=== PATIENT | female | born 1985 ===

== ENCOUNTER 2020-11-02 09:02 | Outpatient (REF) | payer OTHER, SELFPAY | END 2020-11-02 09:03 | disposition home or self-care (01) | LOC: HO.LAB 09:02 | PROVIDERS: PCP Internal Medicine; Visit Provider Internal Medicine | DX: Z20.828 Contact with and (suspected) exposure to other viral communicable diseases (principal) | CPT/HCPCS: C9803; U0003 ==

== ENCOUNTER 2021-01-17 08:41 | Emergency (ER) | payer OTHER, SELFPAY ==
--- NOTE | ~2021-01-17 | CT_ITS ---
EXAMINATION: CT HEAD WITHOUT CONTRAST CLINICAL INFORMATION: Dizziness, headache for 4 days COMPARISON: Noncontrast CT head 12/18/2016 TECHNIQUE: Contiguous axial imaging was performed from the skull base to vertex without intravenous administration of contrast. Additional 2-D coronal and sagittal reformatted images are generated on the CT workstation and uploaded to PACS. This CT examination was performed using dose optimization techniques as appropriate, variously including the following: *Automated exposure control *Adjustment of mA and/or kV according to patient size (this includes techniques or standardized protocols for targeted exams where dose is matched to indication/reason for exam; i.e. extremities or head) *Use of iterative reconstruction technique DLP: 719 mGy-cm FINDINGS: There is no intracranial hemorrhage, hematoma, or extra-axial fluid collection. The ventricles are normal in size. There is no hydrocephalus, edema, or mass effect. The marcum-white matter differentiation appears symmetric. There is no visible acute territorial infarct or mass lesion. The calvarium appears intact. There is no pneumocephalus or orbital emphysema. The visualized sinuses and middle ears and mastoid air cells show no significant mucosal thickening. There are no air-fluid levels. CT/CT head/brain wo con IMPRESSION: No acute intracranial abnormality.
--- NOTE | ~2021-01-17 | XR_ITS ---
EXAMINATION: XR CHEST CLINICAL INFORMATION: Dizziness, headache for 4 days COMPARISON: None TECHNIQUE: Portable upright AP view of the chest was obtained. FINDINGS: There are low lung volumes. The lungs are clear. The heart is normal in size. The vascularity is normal. There is no airspace consolidation or effusion. The hilar and mediastinal contours are normal. There is dextrocurvature thoracolumbar spine. XR/XR chest 1V IMPRESSION: Unremarkable examination.
[2021-01-17 08:47] VITALS: BP 138/83; PULSE 100; RESP 12; TEMP 36.9; O2SAT 97; BMI 27.4
--- NOTE | 2021-01-17 09:09 | ECG_ITS ---
Test Reason : DIZZINESS Blood Pressure : / mmHG Vent. Rate : 080 BPM Atrial Rate : 080 BPM P-R Int : 156 ms QRS Dur : 074 ms QT Int : 384 ms P-R-T Axes : 053 003 016 degrees QTc Int : 442 ms Normal sinus rhythm Cannot rule out Anterior infarct , age undetermined - could be from body habitus/lead placement Abnormal ECG When compared with ECG of 17-AUG-2013 10:15, No significant changes seen Referred By: Fadia Manning Electronically Signed By:KAMINI BALLESTEROS
[2021-01-17] MEDS: 0.9 % Sodium Chloride 1,000 ML 999 ML IVCONT (09:22)
[2021-01-17 09:27] LABS: MANUAL DIFF FLAG NO
[2021-01-17 09:30] LABS: Basophils Percent Auto 0.7 % (0-2); Eosinophils Absolute Auto 0.2 X10*3/uL (0.0-0.4); Eosinophils Percent Auto 3.6 % (0-4); Hematocrit 33.4 % (37-47); Hemoglobin 9.6 g/dl (12.0-16.0); Imm Gran Abs Auto 0.02 X10*3/uL (0.00-0.03); Imm Gran Pct Auto 0.4 % (0.0-0.4); Lymphocytes Percent Auto 35.9 % (20-40); Mean Corpuscular HGB Conc 28.7 g/dl (31.0-35.0); Mean Corpuscular Hemoglobin 20.1 pg (27.0-33.0); Mean Platelet Volume 10.8 fL (9.4-12.3); Monocytes Absolute Auto 0.4 X10*3/uL (0.1-1.2); Monocytes Percent Auto 7.6 % (2-11); Neutrophils Absolute Auto 2.9 X10*3/uL (2.0-8.3); Neutrophils Percent Auto 51.8 % (45-73); Platelet Count 315 X10*3/uL (160-400); Red Blood Count 4.77 X10*6/uL (4.20-5.50); Red Cell Distribution Width 16.1 % (11.0-16.0); White Blood Count 5.5 X10*3/uL (4.8-10.8)
[2021-01-17 09:38] LABS: Prothrombin Time 11.8 SEC (10.8-13.0)
--- NOTE | 2021-01-17 09:44 | ED.GENADULT ---
HPI - General Adult General Chief complaint: General Medical Stated complaint: dizziness Time Seen by Provider: 01/17/21 08:48 Source: patient Mode of arrival: ambulatory Limitations: no limitations History of Present Illness MD complaint: Dizziness Related Data Allergies Allergy/AdvReac Type Severity Reaction Status Date / Time No Known Allergies Allergy Verified 12/06/20 14:22 [facility] Past Medical History Surgical History (Updated 12/06/20 @ 14:23 by GARRY Tovar) History of appendectomy History of cholecystectomy History of extraction of renal calculus Family History Family History (Updated 12/06/20 @ 14:24 by GARRY Tovar) Father Hypertension Mother No problems noted. Sister Asthma Thalassemia Maternal Grandmother Heart disease Daughter In good health Daughter In good health Social History Social History Advance Directives: No Advance Directives Information Provided: No Physical Exam Vital Signs: Vital Signs: Last Vital Signs Temp 98.4 F 01/17/21 08:47 Pulse 100 01/17/21 08:47 Resp 12 01/17/21 08:47 BP 138/83 01/17/21 08:47 Pulse Ox 97 01/17/21 08:47 Body Mass Index 27.4 Medical Decision Making Lab Data Result diagrams: 01/17/21 09:16 01/17/21 09:16 Labs: Lab Results 01/17/21 01/17/21 Range/Units 09:16 09:16 WBC 5.5 (4.8-10.8) X10*3/uL RBC 4.77 (4.20-5.50) X10*6/uL Hgb 9.6 L (12.0-16.0) g/dl Hct 33.4 L (37-47) % MCV 70.0 L (80-98) fL MCH 20.1 L (27.0-33.0) pg MCHC 28.7 L (31.0-35.0) g/dl RDW 16.1 H (11.0-16.0) % Plt Count 315 (160-400) X10*3/uL MPV 10.8 (9.4-12.3) fL Immature Gran % (Auto) 0.4 (0.0-0.4) % Neut % (Auto) 51.8 (45-73) % Lymph % (Auto) 35.9 (20-40) % [place] % (Auto) 7.6 (2-11) % Eos % (Auto) 3.6 (0-4) % Baso % (Auto) 0.7 (0-2) % Lymph # (Auto) 2.0 (1.2-4.9) X10*3/uL [place] # (Auto) 0.4 (0.1-1.2) X10*3/uL Eos # (Auto) 0.2 (0.0-0.4) X10*3/uL Baso # (Auto) 0.0 (0.0-0.2) X10*3/uL Abs Immat Gran (auto) 0.02 (0.00-0.03) X10*3/uL Absolute Neuts (auto) 2.9 (2.0-8.3) X10*3/uL Absolute Nucleated RBC 0.000 (0.0-0.012) X10*3/uL Nucleated RBC % (auto) 0.0 (0.0-0.2) /100WBC PT 11.8 (10.8-13.0) SEC INR 1.0 (0.9-1.1)
[2021-01-17 10:02] LABS: Alanine Aminotransferase 7 U/L (0-31); Albumin Level 3.9 g/dL (3.5-5.0); Alkaline Phosphatase 50 U/L (39-117); Anion Gap 15 (12-20); Aspartate Amino Transferase 11 U/L (5-31); Bilirubin Direct 0.2 mg/dL (0.0-0.5); Bilirubin Total 0.5 mg/dL (0.0-1.0); Blood Urea Nitrogen 8 mg/dL (9-16); Calcium 8.6 mg/dL (8.4-10.2); Carbon Dioxide 20 mmol/L (22-29); Chloride 110 mmol/L (96-108); Creatinine Clr Calc Pharmacy 89.2; Estimated Glomerular Filt Rate > 60; Glucose Random 121 mg/dL (60-115); Magnesium 1.9 mg/dL (1.6-2.6); Sodium 141 mmol/L (135-145); Total Protein 7.2 g/dL (6.5-8.0)
[2021-01-17 10:06] LABS: Troponin-I High Sensitivity < 3.5 ng/L (<3.5-17.0)
[2021-01-17 10:16] LABS: Influenza A PCR NEGATIVE (Negative); Influenza B PCR NEGATIVE (Negative); Resp Syncy Virus RNA Qual PCR NEGATIVE (Negative); SARS COV2 PCR INHOUSE NEGATIVE (Negative)
--- NOTE | 2021-01-17 10:37 | ED_ITS ---
HPI - Dizziness General Chief Complaint: General Medical Stated Complaint: dizziness Time Seen by Provider: 01/17/21 08:48 Source: patient Mode of arrival: ambulatory Limitations: no limitations History of Present Illness HPI Narrative: 35-year-old female with a past medical history of iron deficiency anemia, asthma, scoliosis and nephrolithiasis presenting to the ED with complaints of gradual onset of dizziness and headache for the past 4 days worse today. Reports that she is concerned due to many coworkers are testing positive for COVID. Patient reports she is currently on her menstrual period. Patient denies any fevers, changes in vision, neck pain/stiffness, nausea/vomiting, chest pain, shortness of breath, palpitations, dyspnea on exertion, orthopnea, lower extremity edema, abdominal pain, back pain, dysuria, hematuria, vaginal discharge, melena or or tarry stools. Patient denies recent travel. Patient denies any other symptoms complaints or concerns at this time. MD elicited complaint: dizziness Pertinent past history: anemia Onset (ago): day(s) (4 days) Timing: gradual onset and constant Severity: moderate Description: off-balance History of similar symptoms: No Exacerbating factors: movement/ambulation Relieving factors: nothing Associated symptoms: denies other symptoms Related Data Previous Rx's Medication Instructions Recorded ferrous sulfate 325 mg PO DAILY #30 tab 01/17/21 medroxyprogesterone [Provera] 10 mg PO DAILY 10 Days #10 tab 01/17/21 nitrofurantoin monohyd/m-cryst 100 mg PO Q12H 7 Days #14 cap 01/17/21 [Macrobid] Allergies Allergy/AdvReac Type Severity Reaction Status Date / Time No Known Allergies Allergy Verified 12/06/20 14:22 Review of Systems Review of Systems: Constitutional : No Fever, No Chills, No Night Sweats, No F atigue, No Malaise ENT/Mouth : No Ear Pain, No Nasal Congestion, No Sinus Pain, No sore throat, No Rhinorrhea Eyes: No Eye Pain, No Swelling, No Redness, No Foreign Body, No Discharge, No Vision Changes Cardiovascular : No Chest Pain, No SOB, No Dyspnea on Exertion, No Orthopnea, No Palpitations Respiratory : No Cough, No Sputum, No Wheezing, No Dyspnea Gastrointestinal : No Nausea, No Vomiting, No Diarrhea, No Constipation, No abdominal Pain, No Hematochezia, No Melena Genitourinary : No Dysuria, No Urinary Frequency, No Urinary Incontinence, No Urgency, No Flank Pain Musculoskeletal : No joint pain, No Myalgias Skin : No lacerations Neuro : + Dizziness, +Headache, No Focal weakness, No Numbness, No Paresthesias, No Loss of Consciousness Yes all other systems are reviewed and are negative [facility] Past Medical History Attestation statement: The following information was validated with the patient. Surgical History History of appendectomy History of cholecystectomy History of extraction of renal calculus Family History Family History Father Hypertension Mother No problems noted. Sister Asthma Thalassemia Maternal Grandmother Heart disease Daughter In good health Daughter In good health Social History Social History Advance Directives: No Advance Directives Information Provided: No Physical Exam Vital Signs: Vital Signs: Last Vital Signs Temp 98.4 F 01/17/21 08:47 Pulse 71 01/17/21 11:21 Resp 16 01/17/21 11:21 BP 122/61 01/17/21 11:21 Pulse Ox 97 01/17/21 11:21 Body Mass Index 27.4 Vital signs have been reviewed as normal and appeared to be correct. Blood pressure normal. Heart rate normal. Respiration rate normal. Temperature normal. Oxygen saturation normal. Appearance: Alert. Oriented X3. No acute distress. Head: Normal external exam. Normocephalic. Atraumatic. Able to rotate head bilaterally. Eyes: PERRLA. EOMI. No nystagmus noted. Conjunctiva and sclera normal. Eyelids normal. Corneal reflex normal. ENT: EAC normal. TM's Normal. Hearing normal. Pharynx normal. Uvula midline. tongue midline. Moist mucous membranes. No trismus noted. No drooling noted. No muffled voice noted. No nystagmus noted. Neck: Normal inspection. Neck supple. FROM. No adenopathy. Trachea midline. Thyroid Normal. No meningeal signs. No neck mass noted. CVS: Normal heart rate and rhythm. Heart sound normal. No murmurs noted. Pulses normal throughout. Respiratory: No respiratory distress. Painless inspiration. Breath sounds normal. No wheezes/rales/rhonchi noted. Chest nontender. No accessory muscle usage noted or decreased air movement noted. Abdomen: Soft and nontender. Bowel sounds normal in all 4 quadrants. No distention noted. No organomegaly noted. No visible injury noted. Back: No CVA tenderness. Full range of motion noted. Skin: Skin warm and dry. Normal skin color. Normal skin turgor. No rashes/lesions/lacerations noted. Extremities: No lower extremity edema. No calf tenderness noted. Extremities exhibit normal range of motion. Extremities nontender. Able to shrug shoulders bilaterally and keep up against resistance. Neuro: Oriented X 3. No motor deficit. No sensory deficit. Reflexes normal. Moving all extremities. No focal motor deficits. Cranial nerves II-XI intact bilaterally. Facial strength normal. Normal cognition. Speech normal. Gait normal. Strength 5/5 throughout. No pronator drift. No tremor noted. No fasciculations noted. No rigidity noted. Muscle tone normal throughout. No asterixis noted. Xqwbfq-av-ojub test normal. Heel to bhakta test normal. Tandem gait normal. Does not sway with eyes open. Romberg test negative. Rapid alternating movement upper extremity normal. Rapid alternating movement lower extremity normal. Hand drop from overhead Misses face. NIHSS score 0. Course Course Course Narrative: 9am - 35-year-old female with a past medical history of iron deficiency anemia, asthma, scoliosis and nephrolithiasis presenting to the ED with complaints of gradual onset of dizziness and headache for the past 4 days worse today. Positive exposure to COVID at work. - on exam patient is alert and oriented x3. Vital signs are stable within normal limits. No focal neuro deficits noted. Has a normal steady gait. - Plan: Labs, CT scan of brain, CXR, EKG, orthostatic vitals, COVID/RSV/flu swab provide a L of IV fluids and re-evaluate. Reevaluation(s) Reevaluation #1: - patient is noted to be anemic with a hemoglobin of 9.6 hematocrit of 33.4 MCV of 70 consistent with iron deficiency anemia. - glucose at 121. - UA revealed trace of leukocytes therefore will treat for UTI. Patient is currently on her menstrual period and reports she is having heavy periods - stool occult is negative. - CT scan of brain within normal limits no acute processes noted. - chest x-ray within normal limits no acute processes noted. - EKG is normal sinus rhythm no acute ischemic changes noted. - patient's vital signs are stable. Normal steady gait. Has a chronic history of iron deficiency anemia due to heavy menstrual periods. She is currently on no iron supplements for her iron deficiency anemia. Therefore will start the patient on ferrous sulfate and attempt Provera to slow down the menstrual periods. Along with instructions to return if any new or worsening symptoms to follow up her primary care provider/OBGYN. Patient understands and agrees the plan. Time: 11:03 [facility] - Dizziness Medical Records Attestation: I reviewed the patient's medical records. Lab Data Attestation: I reviewed the patient's lab results. Result diagrams: 01/17/21 09:16 01/17/21 09:16 Labs: Lab Results 01/17/21 01/17/21 01/17/21 Range/Units 09:10 09:16 09:16 WBC 5.5 (4.8-10.8) X10*3/uL RBC 4.77 (4.20-5.50) X10*6/uL Hgb 9.6 L (12.0-16.0) g/dl Hct 33.4 L (37-47) % MCV 70.0 L (80-98) fL MCH 20.1 L (27.0-33.0) pg MCHC 28.7 L (31.0-35.0) g/dl RDW 16.1 H (11.0-16.0) % Plt Count 315 (160-400) X10*3/uL MPV 10.8 (9.4-12.3) fL Immature Gran % (Auto) 0.4 (0.0-0.4) % Neut % (Auto) 51.8 (45-73) % Lymph % (Auto) 35.9 (20-40) % [place] % (Auto) 7.6 (2-11) % Eos % (Auto) 3.6 (0-4) % Baso % (Auto) 0.7 (0-2) % Lymph # (Auto) 2.0 (1.2-4.9) X10*3/uL [place] # (Auto) 0.4 (0.1-1.2) X10*3/uL Eos # (Auto) 0.2 (0.0-0.4) X10*3/uL Baso # (Auto) 0.0 (0.0-0.2) X10*3/uL Abs Immat Gran (auto) 0.02 (0.00-0.03) X10*3/uL Absolute Neuts (auto) 2.9 (2.0-8.3) X10*3/uL Absolute Nucleated RBC 0.000 (0.0-0.012) X10*3/uL Nucleated RBC % (auto) 0.0 (0.0-0.2) /100WBC PT 11.8 (10.8-13.0) SEC INR 1.0 (0.9-1.1) Sodium (135-145) mmol/L Potassium (3.3-5.1) mmol/L Chloride (96-108) mmol/L Carbon Dioxide (22-29) mmol/L Anion Gap (12-20) BUN (9-16) mg/dL Creatinine (0.5-1.4) mg/dL Estim Creat Clear Calc Estimated GFR Random Glucose (60-115) mg/dL Calcium (8.4-10.2) mg/dL Magnesium (1.6-2.6) mg/dL Total Bilirubin (0.0-1.0) mg/dL Direct Bilirubin (0.0-0.5) mg/dL AST (5-31) U/L ALT (0-31) U/L Alkaline Phosphatase (39-117) U/L Troponin I High Sens (<3.5-17.0) ng/L Total Protein (6.5-8.0) g/dL Albumin (3.5-5.0) g/dL Urine Color Urine Appearance Urine pH (5.0-8.0) Ur Specific [place] (1.005-1.025) Urine Protein (NEG-TRACE) MG/DL Urine Glucose (UA) (NEG) MG/DL Urine Ketones (NEG) MG/DL Urine Blood (NEG) Urine Nitrite (NEG) Ur Leukocyte Esterase (NEG) Urine RBC (0) /HPF Urine WBC (0-4) /HPF Ur Squamous Epith Cells /LPF Urine Bacteria /LPF Urine Test (NEGATIVE) Stool Occult Blood (NEG) Coronavirus (PCR) NEGATIVE (Negative) Influenza Type A (PCR) NEGATIVE (Negative) Influenza Type B (PCR) NEGATIVE (Negative) RSV RNA Qual (PCR) NEGATIVE (Negative) 01/17/21 01/17/21 01/17/21 Range/Units 09:16 09:16 10:28 WBC (4.8-10.8) X10*3/uL RBC (4.20-5.50) X10*6/uL Hgb (12.0-16.0) g/dl Hct (37-47) % MCV (80-98) fL MCH (27.0-33.0) pg MCHC (31.0-35.0) g/dl RDW (11.0-16.0) % Plt Count (160-400) X10*3/uL MPV (9.4-12.3) fL Immature Gran % (Auto) (0.0-0.4) % Neut % (Auto) (45-73) % Lymph % (Auto) (20-40) % [place] % (Auto) (2-11) % Eos % (Auto) (0-4) % Baso % (Auto) (0-2) % Lymph # (Auto) (1.2-4.9) X10*3/uL [place] # (Auto) (0.1-1.2) X10*3/uL Eos # (Auto) (0.0-0.4) X10*3/uL Baso # (Auto) (0.0-0.2) X10*3/uL Abs Immat Gran (auto) (0.00-0.03) X10*3/uL Absolute Neuts (auto) (2.0-8.3) X10*3/uL Absolute Nucleated RBC (0.0-0.012) X10*3/uL Nucleated RBC % (auto) (0.0-0.2) /100WBC PT (10.8-13.0) SEC INR (0.9-1.1) Sodium 141 (135-145) mmol/L Potassium 4.0 (3.3-5.1) mmol/L Chloride 110 H (96-108) mmol/L Carbon Dioxide 20 L (22-29) mmol/L Anion Gap 15 (12-20) BUN 8 L (9-16) mg/dL Creatinine 0.72 (0.5-1.4) mg/dL Estim Creat Clear Calc 89.2 Estimated GFR > 60 Random Glucose 121 H (60-115) mg/dL Calcium 8.6 (8.4-10.2) mg/dL Magnesium 1.9 (1.6-2.6) mg/dL Total Bilirubin 0.5 (0.0-1.0) mg/dL Direct Bilirubin 0.2 (0.0-0.5) mg/dL AST 11 (5-31) U/L ALT 7 (0-31) U/L Alkaline Phosphatase 50 (39-117) U/L Troponin I High Sens < 3.5 (<3.5-17.0) ng/L Total Protein 7.2 (6.5-8.0) g/dL Albumin 3.9 (3.5-5.0) g/dL Urine Color YELLOW Urine Appearance CLOUDY Urine pH 5.5 (5.0-8.0) Ur Specific [place] 1.025 (1.005-1.025) Urine Protein NEG (NEG-TRACE) MG/DL Urine Glucose (UA) NEG (NEG) MG/DL Urine Ketones NEG (NEG) MG/DL Urine Blood 3+ H (NEG) Urine Nitrite NEG (NEG) Ur Leukocyte Esterase TRACE H (NEG) Urine RBC TNTC H (0) /HPF Urine WBC 1-4 (0-4) /HPF Ur Squamous Epith Cells 1+ /LPF Urine Bacteria NONE /LPF Urine Test (NEGATIVE) Stool Occult Blood (NEG) Coronavirus (PCR) (Negative) Influenza Type A (PCR) (Negative) Influenza Type B (PCR) (Negative) RSV RNA Qual (PCR) (Negative) 01/17/21 01/17/21 Range/Units 10:28 10:28 WBC (4.8-10.8) X10*3/uL RBC (4.20-5.50) X10*6/uL Hgb (12.0-16.0) g/dl Hct (37-47) % MCV (80-98) fL MCH (27.0-33.0) pg MCHC (31.0-35.0) g/dl RDW (11.0-16.0) % Plt Count (160-400) X10*3/uL MPV (9.4-12.3) fL Immature Gran % (Auto) (0.0-0.4) % Neut % (Auto) (45-73) % Lymph % (Auto) (20-40) % Baxter % (Auto) (2-11) % Eos % (Auto) (0-4) % Baso % (Auto) (0-2) % Lymph # (Auto) (1.2-4.9) X10*3/uL Baxter # (Auto) (0.1-1.2) X10*3/uL Eos # (Auto) (0.0-0.4) X10*3/uL Baso # (Auto) (0.0-0.2) X10*3/uL Abs Immat Gran (auto) (0.00-0.03) X10*3/uL Absolute Neuts (auto) (2.0-8.3) X10*3/uL Absolute Nucleated RBC (0.0-0.012) X10*3/uL Nucleated RBC % (auto) (0.0-0.2) /100WBC PT (10.8-13.0) SEC INR (0.9-1.1) Sodium (135-145) mmol/L Potassium (3.3-5.1) mmol/L Chloride (96-108) mmol/L Carbon Dioxide (22-29) mmol/L Anion Gap (12-20) BUN (9-16) mg/dL Creatinine (0.5-1.4) mg/dL Estim Creat Clear Calc Estimated GFR Random Glucose (60-115) mg/dL Calcium (8.4-10.2) mg/dL Magnesium (1.6-2.6) mg/dL Total Bilirubin (0.0-1.0) mg/dL Direct Bilirubin (0.0-0.5) mg/dL AST (5-31) U/L ALT (0-31) U/L Alkaline Phosphatase (39-117) U/L Troponin I High Sens (<3.5-17.0) ng/L Total Protein (6.5-8.0) g/dL Albumin (3.5-5.0) g/dL Urine Color Urine Appearance Urine pH (5.0-8.0) Ur Specific [place] (1.005-1.025) Urine Protein (NEG-TRACE) MG/DL Urine Glucose (UA) (NEG) MG/DL Urine Ketones (NEG) MG/DL Urine Blood (NEG) Urine Nitrite (NEG) Ur Leukocyte Esterase (NEG) Urine RBC (0) /HPF Urine WBC (0-4) /HPF Ur Squamous Epith Cells /LPF Urine Bacteria /LPF Urine Test NEGATIVE (NEGATIVE) Stool Occult Blood NEG (NEG) Coronavirus (PCR) (Negative) Influenza Type A (PCR) (Negative) Influenza Type B (PCR) (Negative) RSV RNA Qual (PCR) (Negative) Imaging Data Chest x-ray: Attestation: I personally reviewed and interpreted this imaging study as follows: Radiologist's impression: FINDINGS: There are low lung volumes. The lungs are clear. The heart is normal in size. The vascularity is normal. There is no airspace consolidation or effusion. The hilar and mediastinal contours are normal. There is dextrocurvature thoracolumbar spine. XR/XR chest 1V IMPRESSION: Unremarkable examination. CT scan of brain without contrast: Attestation: I personally reviewed and interpreted this imaging study as follows: Radiologist's impression: FINDINGS: There is no intracranial hemorrhage, hematoma, or extra-axial fluid collection. The ventricles are normal in size. There is no hydrocephalus, edema, or mass effect. The marcum-white matter differentiation appears symmetric. There is no visible acute territorial infarct or mass lesion. The calvarium appears intact. There is no pneumocephalus or orbital emphysema. The visualized sinuses and middle ears and mastoid air cells show no significant mucosal thickening. There are no air-fluid levels. CT/CT head/brain wo con IMPRESSION: No acute intracranial abnormality. ECG Data Attestation: I personally reviewed and interpreted this ECG as follows: ECG interpretation date: 01/17/21 ECG interpretation time: 10:03 Interpretation: Normal sinus rhythm with her intra-ocular rate of 80 with a normal AR interval normal QRS duration normal QTC last QTC interval. No acute ischemic changes noted. Similar when compared to prior EKG on 08/17/2013. Critical Care Time Critical Care Time Critical Care Time: Yes Total Critical Care Time: 60 Attestation: I personally attest to this time spent taking care of the patient Discharge Plan Discharge Clinical Impression: Iron deficiency anemia, UTI (urinary tract infection), Menorrhagia Patient Disposition: Home, Self-Care Instructions: Urinary Tract Infection in Women (ED), Iron Deficiency Anemia (ED), Menorrhagia (ED) Additional Instructions: You had a negative COVID/RSV/flu swab. If you develop any fever, sore throat, nasal congestion, cough or any other related complaints you need to be retested for COVID. Otherwise I am starting you on antibiotics for UTI. I will restart her back on your iron medication and I am giving you Provera which will help decrease her menstrual period at this time. Follow-up with your primary care provider and your OBGYN and return if any new or worsening symptoms especially if you have increased dizziness or worsening bleeding. Prescriptions: New nitrofurantoin monohyd/m-cryst [Macrobid] 100 mg capsule 100 mg PO Q12H 7 Days Qty: 14 RF: 0 ferrous sulfate 325 mg (65 mg iron) tablet 325 mg PO DAILY Qty: 30 RF: 0 medroxyprogesterone [Provera] 10 mg tablet 10 mg PO DAILY 10 Days Qty: 10 RF: 0 Referrals: Harriet Montanez MD [Primary Care Provider] - 2 days Stand Alone Forms: Work/School Release Interventions: ED Discharge Assessment Last Done: 01/17/21 11:25 Discharge Date/Time: 01/17/21 11:25 Print Language: Pashto
[2021-01-17 10:38] LABS: Glucose Urine UA NEG (NEG); Leukocyte Esterase Urine TRACE (NEG); Nitrite Urine NEG (NEG); OBS Int Ctl Valid YES; OBS1 NEG (NEG); PH 5.5 (5.0-8.0); Specific Gravity - Urine 1.025 (1.005-1.025); UACC Culture Trigger YES; Urine Blood 3+ (NEG); Urine Ketones NEG (NEG); Urine Protein NEG (NEG-TRACE)
[2021-01-17 10:39] LABS: Appearance Urine CLOUDY; Color Urine YELLOW
[2021-01-17 10:40] LABS: UPreg QC Valid YES; Urine Pregnancy NEGATIVE (NEGATIVE)
[2021-01-17 10:49] LABS: RBC Urine TNTC /HPF (0); Squamous Epithelial Cell Urine 1+ /LPF
[2021-01-17 11:21] VITALS: BP 122/61; PULSE 71; RESP 16; O2SAT 97
== END 2021-01-17 11:25 | disposition home or self-care (01) ==
PROVIDERS: Physician Assistant Medical; Emergency Provider Emergency Medicine; PCP Internal Medicine
DX: N39.0 Urinary tract infection, site not specified (principal); D50.9 Iron deficiency anemia, unspecified; N92.0 Excessive and frequent menstruation with regular cycle; Z20.822 Contact with and (suspected) exposure to COVID-19
CPT/HCPCS: 0241U; 36415; 70450; 71045; 80048; 80076; 81001; 81003; 81025; 82272; 83735; 84484; 85025; 85610; 87086; 93005; 96360; 99283; 99291

== ENCOUNTER 2021-04-23 09:28 | Outpatient (REF) | payer OTHER, SELFPAY ==
--- NOTE | ~2021-04-23 | XR_ITS ---
EXAMINATION: XR THORACOLUMBAR SPINE CLINICAL INFORMATION: Thoracic spine pain. COMPARISON: Lumbar spine radiographs 06/17/2013. TECHNIQUE: Three views thoracic spine. FINDINGS: Again seen is a moderate biconvex thoracolumbar scoliosis. Based upon only the abdominal radiograph seen previously, this appears slightly worse. It is convex to the right in the lumbar spine and left in the thoracic spine. Surgical clips present in the gallbladder fossa. The exam is otherwise unremarkable. No compression fractures or bony destructive lesions seen. The paraspinal soft tissues appear unremarkable. XR/XR thoracic spine 2V IMPRESSION: No compression fractures or subluxations are identified. Biconvex thoracolumbar scoliosis.
[2021-04-23 10:54] LABS: MANUAL DIFF FLAG NO
[2021-04-23 11:07] LABS: Basophils Percent Auto 0.5 % (0-2); Eosinophils Absolute Auto 0.2 X10*3/uL (0.0-0.4); Eosinophils Percent Auto 2.3 % (0-4); Hematocrit 41.8 % (37-47); Hemoglobin 13.4 g/dl (12.0-16.0); Imm Gran Abs Auto 0.04 X10*3/uL (0.00-0.03); Imm Gran Pct Auto 0.5 % (0.0-0.4); Lymphocytes Absolute Auto 2.2 X10*3/uL (1.2-4.9); Lymphocytes Percent Auto 30.6 % (20-40); Mean Corpuscular HGB Conc 32.1 g/dl (31.0-35.0); Mean Corpuscular Hemoglobin 26.5 pg (27.0-33.0); Mean Corpuscular Volume 82.8 fL (80-98); Monocytes Absolute Auto 0.5 X10*3/uL (0.1-1.2); Monocytes Percent Auto 6.7 % (2-11); Neutrophils Absolute Auto 4.3 X10*3/uL (2.0-8.3); Neutrophils Percent Auto 59.4 % (45-73); Platelet Count 313 X10*3/uL (160-400); Red Blood Count 5.05 X10*6/uL (4.20-5.50); Red Cell Distribution Width 14.8 % (11.0-16.0); White Blood Count 7.3 X10*3/uL (4.8-10.8)
[2021-04-23 12:03] LABS: Alanine Aminotransferase 9 U/L (0-31); Albumin Level 4.3 g/dL (3.5-5.0); Alkaline Phosphatase 55 U/L (39-117); Anion Gap 13 (12-20); Aspartate Amino Transferase 14 U/L (5-31); Blood Urea Nitrogen 6 mg/dL (9-16); Calcium 9.6 mg/dL (8.4-10.2); Carbon Dioxide 22 mmol/L (22-29); Chloride 107 mmol/L (96-108); Cholesterol 266 mg/dL; Estimated Glomerular Filt Rate > 60; Glucose Fasting 75 mg/dL (60-99); HDL Cholesterol 66 mg/dL; LDL Cholesterol Calculated 159 mg/dl; Potassium 4.4 mmol/L (3.3-5.1); Sodium 138 mmol/L (135-145); Total Protein 7.7 g/dL (6.5-8.0); Triglycerides 205 mg/dL
[2021-04-27 16:12] LABS: Vitamin D 25-OH, D2 <4 ng/mL; Vitamin D 25-OH, D3 19 ng/mL; Vitamin D 25-OH, Total 19 ng/mL (30-100)
== END 2021-04-23 09:29 | disposition home or self-care (01) ==
LOC: HO.LAB 09:28
PROVIDERS: PCP Internal Medicine; Visit Provider Internal Medicine
DX: M54.6 Pain in thoracic spine (principal); D64.9 Anemia, unspecified; D50.9 Iron deficiency anemia, unspecified; E66.9 Obesity, unspecified; E78.5 Hyperlipidemia, unspecified; E55.9 Vitamin D deficiency, unspecified
CPT/HCPCS: 36415; 72070; 80053; 80061; 82306; 85025

== ENCOUNTER 2021-08-05 19:02 | Emergency (ER) | payer OTHER, SELFPAY ==
[2021-08-05 19:37] VITALS: BP 118/80; PULSE 82; RESP 16; TEMP 36.6; O2SAT 98; BMI 842.4
--- NOTE | 2021-08-05 20:06 | ED_ITS ---
HPI - Fall General Chief Complaint: Fall Stated Complaint: FALL @ Work Time Seen by Provider: 08/05/21 20:06 Source: patient Mode of arrival: ambulatory Limitations: no limitations and language barrier History of Present Illness HPI Narrative: History taken with registered nurse first assistant. 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 They did not put a ramp and she fell between the trailor and the loading dock. Her right leg fell through the space and patient feeling pain up to the neck. MD complaint: fall Onset (ago): hour(s) Fall from: standing Fall witnessed: yes, by bystander Place fall occurred: work Loss of consciousness: none Symptoms prior to fall: none Context: tripped/slipped Related Data Home Medications Medication Instructions Recorded Confirmed norelgestromin 150 mcg-e.estradiol 1 patch TOPICAL QWEEK 02/19/21 04/23/21 35 mcg/24 hr weekly transderm patch (Xulane) Previous Rx's Medication Instructions Recorded medroxyprogesterone 10 mg tablet 10 mg PO DAILY 10 Days #10 tab 01/17/21 (Provera) meclizine 25 mg tablet 25 mg PO TID PRN 30 Days #90 tab 01/31/21 ferrous sulfate 325 mg (65 mg 325 mg PO DAILY 90 Days #90 tab 02/13/21 iron) tablet naproxen 500 mg tablet (Naprosyn) 500 mg PO BID #20 tab 08/05/21 Allergies Allergy/AdvReac Type Severity Reaction Status Date / Time No Known Allergies Allergy Verified 08/05/21 19:41 Review of Systems Constitutional: Constitutional: Reports no additional constitutional complaints Eyes: Eyes: Reports no additional eye complaints ENT: Denies dizziness Cardiovascular: Cardiovascular: Reports no additional cardiovascular complaints Respiratory: Respiratory: Reports as per HPI Gastrointestinal: Gastrointestinal: Reports no additional gastrointestinal complaints Genitourinary: Genitourinary: Reports no additional female genitourinary complaints Musculoskeletal: Musculoskeletal: Reports no additional musculoskeletal complaints Integumentary/Breasts: Skin/Breast: Denies rash Neurologic: Reports system reviewed and no additional complaints, except as documented, Denies dizziness and Denies Sensory deficit (Neuro) Psychiatric: Psychiatric: Denies anxiety [facility] Past Medical History Medical History Hearing loss, right Obese Thoracic spine pain Vertigo Surgical History History of appendectomy History of cholecystectomy History of extraction of renal calculus Family History Family History Father Hypertension Mother No problems noted. Sister Thalassemia Asthma Maternal Grandmother Heart disease Daughter In good health Daughter In good health Maternal Uncle DVT (deep venous thrombosis) Sister Asthma Social History Social History Alcohol intake: former Patient Tobacco Use Status: Never used Tobacco e-Cigarette/Vaping Use: Never Used Second Hand Smoke Exposure: No Advance Directives: No Advance Directives Information Provided: No Patient : No Physical Exam Vital Signs: Vital Signs: Last Vital Signs Temp 97.8 F 08/05/21 19:37 Pulse 82 08/05/21 19:37 Resp 16 08/05/21 19:37 BP 118/80 08/05/21 19:37 Pulse Ox 98 08/05/21 19:37 Body Mass Index 842.4 Const: General: healthy appearing Nutritional Appearance: average body habitus Orientation/consciousness: oriented to person and patient oriented x3 Limitations: no limitations HENMT: Head: Yes normal to inspection Ears: external ears normal General nose exam: Normal external nose present Mouth: Normal oral and palatal mucosa present and oropharynx normal Throat: Yes posterior oropharynx normal Eyes: General: appearance normal, both eyes and all related structures Neck: Other: right sided trapezius and sternocleidomastoid tenderness Chest: Chest palpation & inspection: normal inspection of the chest Resp: Auscultation: clear to auscultation bilaterally Cardio: Jugular venous distension: no JVD Rate: regular rate Rhythm: regular rhythm Heart sounds: S1 normal heart sound present and S2 normal heart sound present GI: Inspection: Yes normal to inspection Palpation (GI): Soft to palpation, nontender and No hepatosplenomegaly present Auscultation: normal bowel sounds Back/Spine/Pelvis: Other: right thoracic tenderness to palpation Skin: General skin exam: no rashes or lesions noted Neuro: General: oriented to person and patient oriented x3 Cranial nerves: Yes CN's II-XII intact bilaterally Motor exam (neuro): 5/5 motor strength present throughout Sensory Exam: No Sensory deficit (Neuro) Extrem: Other: right knee with small abrasion and contusion, no laxity negative anterior or posterior draw, FROM Psych: Appearance: grossly normal Discharge Plan Discharge Clinical Impression: Contusion of knee, Neck muscle strain Patient Disposition: Home, Self-Care Instructions: Cervical Strain (ED), Contusion in Adults (ED) Additional Instructions: Must follow up with workman's comp doctor from [employer] Prescriptions: New naproxen [Naprosyn] 500 mg tablet 500 mg PO BID Qty: 20 RF: 0 No Action ferrous sulfate 325 mg (65 mg iron) tablet 325 mg PO DAILY 90 Days Qty: 90 RF: 3 medroxyprogesterone [Provera] 10 mg tablet 10 mg PO DAILY 10 Days Qty: 10 RF: 0 Xulane 150-35 mcg/24 hr patch weekly 1 patch topical QWEEK RF: 0 meclizine 25 mg tablet 25 mg PO TID PRN (Reason: dizziness) 30 Days Qty: 90 RF: 1 Referrals: Harriet Montanez MD [Primary Care Provider] - 5 days Stand Alone Forms: Work/School Release
== END 2021-08-05 20:59 | disposition home or self-care (01) ==
PROVIDERS: Emergency Provider Emergency Medicine; PCP Internal Medicine
DX: S80.01XA Contusion of right knee, initial encounter (principal); S80.211A Abrasion, right knee, initial encounter; M25.561 Pain in right knee; W17.89XA Other fall from one level to another, initial encounter; Y93.9 Activity, unspecified; Y92.9 Unspecified place or not applicable; Y99.0 Civilian activity done for income or pay
CPT/HCPCS: 99283

== ENCOUNTER 2021-08-23 09:53 | Outpatient (REF) | payer OTHER, SELFPAY ==
--- NOTE | ~2021-08-23 | XR_ITS ---
EXAMINATION: XR KNEE, RIGHT CLINICAL INFORMATION: Pain COMPARISON: None TECHNIQUE: Four views of the right knee. FINDINGS: Bones and soft tissues are normal. No fracture or joint effusion. Alignment is anatomic. Joint spaces are well maintained. No abnormal soft tissue calcification. XR/XR knee RT 4V IMPRESSION: Normal right knee.
== END 2021-08-23 09:54 | disposition home or self-care (01) ==
LOC: HO.XRAY 09:53
PROVIDERS: PCP Internal Medicine; Visit Provider Internal Medicine
DX: M25.561 Pain in right knee (principal)
CPT/HCPCS: 73564

== ENCOUNTER 2022-05-20 09:45 | Emergency (ER) | payer OTHER, SELFPAY ==
--- NOTE | ~2022-05-20 | CT_ITS ---
EXAMINATION: CT CERVICAL SPINE WITHOUT CONTRAST CLINICAL INFORMATION: Right-sided neck pain. Pain radiating down the right arm. COMPARISON: None available. TECHNIQUE: Multidetector helical imaging of the cervical spine was obtained without intravenous contrast. Multiple axial reformats and coronal/sagittal reconstructions were created the technologist workstation for review. This CT examination was performed using dose optimization techniques as appropriate, variously including the following: *Automated exposure control. *Adjustment of mA and/or kV according to patient size (this includes techniques or standardized protocols for targeted exams where dose is matched to indication/reason for exam; i.e. extremities or head). *Use of iterative reconstruction technique. DLP: 394 mGy-cm FINDINGS: The atlantooccipital and atlantoaxial articulations remain well aligned. Reversal the normal cervical lordosis centered on C5. Otherwise, there is anatomic alignment of the vertebral bodies and posterior elements. No evidence of acute fracture or subluxation. The vertebral body heights are maintained. Moderate degenerative disc disease at C5-C6. Mild degenerative disc disease at all additional cervical levels. There is no prevertebral soft tissue swelling. The thyroid gland and remaining cervical soft tissues are normal in appearance. The lung apices demonstrate no abnormalities. SPINAL LEVELS: C2-C3: Normal annular contour. There is no uncovertebral joint arthropathy. There is mild right and no left facet joint arthropathy. There is no neural foraminal stenosis. There is no demonstrated spinal canal stenosis. C3-C4: Mild disc-osteophyte complex. There is no uncovertebral joint arthropathy. There is no facet joint arthropathy. There is no neural foraminal stenosis. There is no demonstrated spinal canal stenosis. C4-C5: Normal annular contour. There is no uncovertebral joint arthropathy. There is no facet joint arthropathy. There is no neural foraminal stenosis. There is no demonstrated spinal canal stenosis. C5-C6: Moderate disc-osteophyte complex. There is mild bilateral uncovertebral joint arthropathy. There is mild bilateral facet joint arthropathy. There is mild left and no right neural foraminal stenosis. There appears to be mild spinal canal stenosis. C6-C7: Mild disc-osteophyte complex. There is mild left and no right uncovertebral joint arthropathy. There is mild bilateral facet joint arthropathy. There is no neural foraminal stenosis. There is no demonstrated spinal canal stenosis. C7-T1: Normal annular contour. There is no uncovertebral joint arthropathy. There is no facet joint arthropathy. There is no neural foraminal stenosis. There is no demonstrated spinal canal stenosis. CT/CT cervical spine wo con IMPRESSION: 1. No evidence of acute fracture or traumatic subluxation of the cervical spine. 2. Mild to moderate multilevel degenerative spondyloarthropathy of the cervical spine as described in detail above. Most notably on this limited exam without intrathecal contrast, there appears to be mild spinal canal stenosis at C5-C6.
[2022-05-20 10:15] VITALS: BP 132/72; PULSE 75; RESP 16; TEMP 36.3; O2SAT 98; BMI 29.2
--- NOTE | 2022-05-20 10:38 | ED_ITS ---
HPI - Extremity Problem General Chief complaint: Extremity Injury, Upper Stated complaint: R pain from neck to hand Time Seen by Provider: 05/20/22 10:17 Source: patient Mode of arrival: ambulatory Limitations: no limitations History of Present Illness HPI Narrative: 36-year-old female who was [id number] presents with neck pain with radiation down the right arm with pins and needles for 3 days with no known injury or trauma. Patient denies headache, weakness, fevers, chills, neck stiffness. Patient works at [employer] and does a lot of lifting and movement of the upper extremities but cannot recall any specific injury Related Data Home Medications Medication Instructions Recorded Confirmed norelgestromin 150 mcg-e.estradiol 1 patch topical QWEEK 02/19/21 08/21/21 35 mcg/24 hr weekly transderm patch (Xulane) Previous Rx's Medication Instructions Recorded naproxen 500 mg tablet (Naprosyn) 500 mg PO BID #20 tabs 01/08/22 albuterol sulfate 90 mcg/actuation 2 puff inhalation Q6H PRN 02/02/22 aerosol inhaler shortness of breath or wheezing 30 days #6.7 grams ferrous sulfate 325 mg (65 mg 325 mg PO DAILY Iron deficiency 02/20/22 iron) tablet anemia 90 days #90 tabs meclizine 25 mg tablet 25 mg PO TID PRN dizziness 30 days 05/12/22 #90 tabs cyclobenzaprine 10 mg tablet 10 mg PO TID PRN muscle spasm #15 05/20/22 tabs naproxen 500 mg tablet 500 mg PO BID PRN pain #20 tabs 05/20/22 prednisone 20 mg tablet 40 mg PO BID #10 tabs 05/20/22 Allergies Allergy/AdvReac Type Severity Reaction Status Date / Time No Known Allergies Allergy Verified 08/21/21 17:29 Review of Systems Review of Systems: Yes all other systems are reviewed and are negative Constitutional: Constitutional: Reports no additional constitutional complaints, Denies body ache(s), Denies chills, Denies fever(s), Denies headache(s) and Denies weakness Eyes: Eyes: Reports no additional eye complaints and Denies change in vision ENT: Reports system reviewed and no additional complaints, except as documented, Denies dizziness, Denies headache(s), Denies nasal congestion, Denies nasal discharge and Reports neck pain Cardiovascular: Cardiovascular: Reports no additional cardiovascular comp laints, Denies chest pain, Denies leg edema and Denies dyspnea Respiratory: Respiratory: Reports no additional respiratory complaints, Denies cough and Denies dyspnea Gastrointestinal: Gastrointestinal: Reports no additional gastrointestinal complaints, Denies abdominal pain, Denies diarrhea, Denies nausea and Denies vomiting Genitourinary: Genitourinary: Reports no additional female genitourinary complaints and Denies urinary incontinence Musculoskeletal: Musculoskeletal: Reports no additional musculoskeletal complaints, Denies back pain, Denies arthralgias, Denies joint swelling, Reports neck pain, Denies numbness, Reports radiating pain into limb and Denies tingling Integumentary/Breasts: Skin/Breast: Reports system reviewed and no additional complaints, except as docu and Denies rash Neurologic: Reports system reviewed and no additional complaints, except as documented, Denies Abnormal speech present, Denies dizziness, Denies headache(s), Denies numbness, Denies tingling and Denies weakness PMFSH Past Medical History Attestation statement: The following information was validated with the patient. Source: old records reviewed and nursing notes reviewed Medical History Hearing loss, right Obese Right knee pain Thoracic spine pain Vertigo Surgical History History of appendectomy History of cholecystectomy History of extraction of renal calculus Family History Family History Father Hypertension Mother No problems noted. Sister Thalassemia Asthma Maternal Grandmother Heart disease Daughter In good health Daughter In good health Maternal Uncle DVT (deep venous thrombosis) Sister Asthma Social History Social History Housing: Apartment Alcohol intake: former Patient Tobacco Use Status: Never used Tobacco e-Cigarette/Vaping Use: Never Used Second Hand Smoke Exposure: No Advance Directives: Yes Advance Directives Information Provided: No Advance Directives on File: No service: No Current occupational status: employed Current occupational exposures/hazards: No Physical Exam Vital Signs: Vital Signs: Last Vital Signs Temp 97.4 F 05/20/22 10:15 Pulse 75 05/20/22 10:15 Resp 16 05/20/22 10:15 BP 132/72 05/20/22 10:15 Pulse Ox 98 05/20/22 10:15 O2 Del Method 05/20/22 10:15 BMI result Body Mass Index 29.2 Const: General: cooperative, healthy appearing, comfortable and no acute distress Orientation/consciousness: patient oriented x3 Limitations: no limitations HEENT: Head: Yes normal to inspection Ears: hearing grossly normal bilaterally General nose exam: Normal external nose present Face and sinus: Yes normal facial exam Mouth: Normal oral and palatal mucosa present Throat: Yes posterior oropharynx normal Eyes: General: appearance normal, both eyes and all related structures Pupils: Equal, round and reactive pupils present Neck: Other: There is midline tenderness with no step-offs or deformities. There is tenderness over the right neck soft tissue and into the trapezius with palpable muscle spasm. +spurlings Neck: Yes normal visual inspection Chest: Chest palpation & inspection: normal inspection of the chest Resp: Effort & Inspection: normal respiratory effort Auscultation: clear to auscultation bilaterally Cardio: Rate: regular rate Rhythm: regular rhythm Peripheral pulses: Peripheral pulses 2+ throughout GI: Inspection: Yes normal to inspection Palpation (GI): Soft to palpation and nontender Auscultation: normal bowel sounds Back/Spine/Pelvis: Thoracic/Lumbar Spine: thoracic and lumbar spine normal to inspection Skin: General skin exam: no rashes or lesions noted Neuro: General: patient oriented x3, no focal motor deficits and normal sensation to monofilament Cranial nerves: Yes CN's II-XII intact bilaterally, Yes Equal, round and reactive pupils present, Yes Bilaterally intact EOM present, Yes Nystagmus not present, Yes Normal facial strength present and Yes Midline tongue present Cognition (Neuro): normal cognition Speech: No Abnormal speech present Gait exam (Neuro): Normal gait present Motor exam (neuro): 5/5 motor strength present throughout Sensory Exam: Normal double simultaneous stimulation for sensation Extrem: General: Yes normal to inspection Course Course Course Narrative: CT cervical spine shows arthritic changes, mild spinal canal stenosis. Patient likely has cervical radiculopathy secondary to underlying stenosis. Will initiate prednisone, anti-inflammatory and low-dose muscle relaxant. Recommend patient follow-up with primary care. Reviewed worrisome signs and symptoms of when to return to the emergency department. Comfortable discharge home. MDM - Extremity (Nontraumatic) MDM Narrative Medical decision making narrative: 36-year-old female here with reports of 3 days of neck pain with radiation down the right arm with pins and needle sensation. No fevers, headache, weakness. Normal neuro exam. Positive Spurling's test. Likely cervical radiculopathy. Will check CT cervical spine Low concern for epidural abscess with no history of immunocompromise state, no fever, no neurological deficits, no IV drug abuse. Medical Records Attestation: I reviewed the patient's medical records. Lab Data Attestation: I reviewed the patient's lab results. Imaging Data CT cervical spine: Attestation: I personally reviewed and interpreted this imaging study as follows: Radiologist's impression: FINDINGS: The atlantooccipital and atlantoaxial articulations remain well aligned. Reversal the normal cervical lordosis centered on C5. Otherwise, there is anatomic alignment of the vertebral bodies and posterior elements. No evidence of acute fracture or subluxation. The vertebral body heights are maintained. Moderate degenerative disc disease at C5-C6. Mild degenerative disc disease at all additional cervical levels. There is no prevertebral soft tissue swelling. The thyroid gland and remaining cervical soft tissues are normal in appearance. The lung apices demonstrate no abnormalities. SPINAL LEVELS: C2-C3: Normal annular contour.? There is no uncovertebral joint arthropathy. There is mild right and no left facet joint arthropathy. There is no neural foraminal stenosis. There is no demonstrated spinal canal stenosis. C3-C4: Mild disc-osteophyte complex. There is no uncovertebral joint arthropathy. There is no facet joint arthropathy. There is no neural foraminal stenosis. There is no demonstrated spinal canal stenosis. C4-C5: Normal annular contour. There is no uncovertebral joint arthropathy. There is no facet joint arthropathy. There is no neural foraminal stenosis. There is no demonstrated spinal canal stenosis. C5-C6: Moderate disc-osteophyte complex. There is mild bilateral uncovertebral joint arthropathy. There is mild bilateral facet joint arthropathy. There is mild left and no right neural foraminal stenosis. There appears to be mild spinal canal stenosis. C6-C7: Mild disc-osteophyte complex. There is mild left and no right uncovertebral joint arthropathy. There is mild bilateral facet joint arthropathy. There is no neural foraminal stenosis. There is no demonstrated spinal canal stenosis. C7-T1: Normal annular contour. There is no uncovertebral joint arthropathy. There is no facet joint arthropathy. There is no neural foraminal stenosis. There is no demonstrated spinal canal stenosis. CT/CT cervical spine wo con IMPRESSION: 1. No evidence of acute fracture or traumatic subluxation of the cervical spine. ? 2. Mild to moderate multilevel degenerative spondyloarthropathy of the cervical spine as described in detail above. Most notably on this limited exam without intrathecal contrast, there appears to be mild spinal canal stenosis at C5-C6. Discharge Plan Discharge Clinical Impression: Cervical radiculopathy Patient Disposition: Still a Patient Instructions: Cervical Radiculopathy (ED) Additional Instructions: Heat or ice Gentle stretching Follow-up with your primary care doctor for persistent symptoms Prescriptions: New naproxen 500 mg tablet 500 mg PO BID PRN (Reason: pain) Qty: 20 0RF prednisone 20 mg tablet 40 mg PO BID Qty: 10 0RF cyclobenzaprine 10 mg tablet 10 mg PO TID PRN (Reason: muscle spasm) Qty: 15 0RF No Action naproxen [Naprosyn] 500 mg tablet 500 mg PO BID Qty: 20 0RF albuterol sulfate 90 mcg/actuation HFA aerosol inhaler 2 puff inhalation Q6H PRN (Reason: shortness of breath or wheezing) 30 Days Qty: 6.7 0RF ferrous sulfate 325 mg (65 mg iron) tablet 325 mg PO DAILY 90 Days Qty: 90 3RF meclizine 25 mg tablet 25 mg PO TID PRN (Reason: dizziness) 30 Days Qty: 90 1RF Xulane 150-35 mcg/24 hr patch weekly 1 patch topical QWEEK Referrals: Harriet Montanez MD [Primary Care Provider] - 1 week Stand Alone Forms: Work/School Release Interventions: ED Discharge Assessment Last Done: 05/20/22 13:10 Discharge Date/Time: 05/20/22 13:11
== END 2022-05-20 13:11 | disposition still patient (30) ==
PROVIDERS: Emergency Provider Emergency Medicine; PCP Internal Medicine
DX: M54.12 Radiculopathy, cervical region (principal); Z79.899 Other long term (current) drug therapy
CPT/HCPCS: 72125; 99283

== ENCOUNTER 2022-08-08 08:23 | Emergency (ER) | payer OTHER, SELFPAY ==
--- NOTE | ~2022-08-08 | XR_ITS ---
EXAMINATION: XR CHEST CLINICAL INFORMATION: Fever/cough. COMPARISON: Chest radiograph dated from 01/17/2021. TECHNIQUE: 2 views of the chest were obtained. FINDINGS: Normal appearance of the cardiomediastinal silhouette. No focal airspace opacity, pleural effusion or pneumothorax. No acute osseous abnormalities. The visualized upper abdomen is within normal limits. XR/XR chest 2V IMPRESSION: No acute cardiopulmonary findings.
[2022-08-08 08:46] VITALS: BP 142/78; PULSE 86; RESP 16; TEMP 36.4; O2SAT 97; BMI 31.5
[2022-08-08 09:07] LABS: COVID-19 Test Negative (Negative); IDNOW Serial# 16C4AD1C
[2022-08-08 12:30] VITALS: BP 136/72; PULSE 88; RESP 18; TEMP 36; O2SAT 100
--- NOTE | 2022-08-08 12:37 | ED.URI ---
HPI - URI/Sore Throat General Chief Complaint: Upper Respiratory Symptoms Stated Complaint: fever/vomiting/body ahces Time Seen by Provider: 08/08/22 11:41 Source: patient Mode of arrival: ambulatory Limitations: no limitations History of Present Illness HPI Narrative: 37-year-old female with a past medical history of anemia, vertigo an asthma presenting to the ER with complaints of fevers up to 102, body aches, fatigue, malaise, productive cough with clear/yellow colored sputum, intermittent headaches, nausea and 1 episode of vomiting this morning along with nasal congestion/rhinorrhea for the past 3 days worse today. Reports that her co-worker was positive for COVID and a family member. She denies any dizziness, neck pain/stiffness, sore throat, ear pain, trouble swallowing or breathing, chest pain or shortness of breath, dyspnea on exertion, orthopnea, palpitations on paresthesias, abdominal pain, back pain, flank pain, dysuria, hematuria, abnormal vaginal discharge, black or bloody stools, diarrhea constipation, lower extremity edema or calf tenderness, rashes, recent travel or any other sick contacts or any other symptoms complaints or concerns at this time. MD elicited complaint: fever, cough, rhinorrhea and nasal congestion Onset (ago): day(s) (3) Consistency: constant and progressively worsening Severity: mild Description of mucous: clear and watery Able to tolerate fluids by mouth: Yes Exacerbating factors: nothing Relieving factors: nothing Context: sick contacts Associated symptoms: fever, chills, myalgias, headache, rhinorrhea, nasal congestion, cough, nausea and vomiting Treatments prior to arrival: none Related Data Home Medications Medication Instructions Recorded Confirmed norelgestromin 150 mcg-e.estradiol 1 patch topical QWEEK 02/19/21 08/21/21 35 mcg/24 hr weekly transderm patch (Xulane) Previous Rx's Medication Instructions Recorded albuterol sulfate 90 mcg/actuation 2 puff inhalation Q6H PRN 02/02/22 aerosol inhaler shortness of breath or wheezing 30 days #6.7 grams ferrous sulfate 325 mg (65 mg 325 mg PO DAILY Iron deficiency 02/20/22 iron) tablet anemia 90 days #90 tabs meclizine 25 mg tablet 25 mg PO TID PRN dizziness 30 days 05/12/22 #90 tabs naproxen 500 mg tablet 500 mg PO BID PRN pain #20 tabs 05/20/22 prednisone 20 mg tablet 40 mg PO BID #10 tabs 05/20/22 cyclobenzaprine 10 mg tablet 10 mg PO TID PRN muscle spasm #15 07/30/22 tabs naproxen 500 mg tablet (Naprosyn) 500 mg PO BID #20 tabs 07/30/22 azithromycin 250 mg tablet See Rx Instructions PO .COMPLEX #6 08/08/22 tabs ondansetron 4 mg disintegrating 4 mg PO Q8H nausea/vomiting #14 08/08/22 tablet tabs Allergies Allergy/AdvReac Type Severity Reaction Status Date / Time No Known Allergies Allergy Verified 08/21/21 17:29 Review of Systems Review of Systems: Constitutional : + fevers/chills/fatigue/malaise, No Weight loss, No Night Sweats ENT/Mouth : + nasal congestion/rhinorrhea, No Hearing loss, No Ear Pain, No Sinus Pain, No Hoarseness, No sore throat, No Swallowing Difficulty Eyes: No Eye Pain, No Swelling, No Redness, No Foreign Body, No Discharge, No Vision Changes Cardiovascular : No Chest Pain, No SOB, No Dyspnea on Exertion, No Orthopnea, No Edema, No Palpitations Respiratory : + Cough, + Sputum, No Wheezing, No Smoke Exposure, No Dyspnea Gastrointestinal : + Nausea, + Vomiting, No Diarrhea, No Constipation, No abdominal Pain, No Hematochezia, No Melena Genitourinary : no irregular bleeding, No Dysuria, No Urinary Frequency, No Hematuria, No Urinary Incontinence, No Urgency, No Flank Pain, No Urinary Flow Changes, No Hesitancy Musculoskeletal : No joint pain, + Myalgias, No Joint Swelling Skin : No Skin Lesions, No rash Neuro : No Weakness, No Numbness, No Paresthesias, No Loss of Consciousness, No Dizziness, No Headache Psych : No Anxiety/Panic, No Depression, No SI/HI/AH/VH, No Social Issues, Heme/Lymph: No Bruising, No Bleeding,No Lymphadenopathy Endocrine : No Polyuria, No Polydipsia, No Temperature Intolerance Yes all other systems are reviewed and are negative [facility] Past Medical History Attestation statement: The following information was validated with the patient. Source: old records reviewed and nursing notes reviewed Medical History Hearing loss, right Obese Right knee pain Thoracic spine pain Vertigo Surgical History History of appendectomy History of cholecystectomy History of extraction of renal calculus Family History Family History Father Hypertension Mother No problems noted. Sister Thalassemia Asthma Maternal Grandmother Heart disease Daughter In good health Daughter In good health Maternal Uncle DVT (deep venous thrombosis) Sister Asthma Social History Social History Housing: Apartment Alcohol intake: former Patient Tobacco Use Status: Never used Tobacco e-Cigarette/Vaping Use: Never Used Second Hand Smoke Exposure: No Advance Directives: No Advance Directives Information Provided: No service: No Current occupational status: employed Current occupational exposures/hazards: No Physical Exam Vital Signs: Vital Signs: Last Vital Signs Temp 96.8 F 08/08/22 12:30 Pulse 88 08/08/22 12:30 Resp 18 08/08/22 12:30 BP 136/72 08/08/22 12:30 Pulse Ox 100 08/08/22 12:30 O2 Del Method 08/08/22 12:30 BMI result Body Mass Index 31.5 vital signs have been reviewed as normal and appeared to be correct. Blood pressure normal. Heart rate 142/78. Respiration rate normal. Temperature normal. Oxygen saturation normal. Appearance: Alert. Oriented X3. No acute distress. Head: Normal external exam. Normocephalic. Atraumatic. Eyes: PERRLA. EOMI. Conjunctiva and sclera normal. Eyelids normal. ENT: EAC normal. TM's Normal. Pharynx normal. Uvula midline. Moist mucous membranes. No lesions/ulcerations or masses noted on the tongue. Normal voice. No trismus noted. No drooling noted. No muffled voice noted. Neck: Normal inspection. Neck supple. FROM. No adenopathy. Thyroid Normal. No tracheal deviation noted. No crepitus is noted. No meningeal signs. No neck mass noted. No signs of trauma noted. CVS: Normal heart rate and rhythm. Heart sound normal. Pulses normal throughout. No murmurs/rales/gallops. Respiratory: No respiratory distress. Painless inspiration. Breath sounds normal. No wheezes/rales/rhonchi noted. Chest nontender. No crepitus is noted. No accessory muscle usage noted or decreased air movement noted. No signs of trauma. Abdomen: Soft and nontender. Nondistended. No guarding. No rigidity. Bowel sounds normal in all 4 quadrants. No distention noted. No organomegaly noted. No visible injury noted. No rebound tenderness. Negative Rovsing sign. Negative obturator's sign. Negative psoas sign. Negative Mata sign. Back: No CVA tenderness. Full range of motion noted. Nontender. No signs of trauma. Patient neuro intact bilaterally and distally on all 4 extremities. Patient's reflexes intact bilaterally and distally on all 4 extremities. No rashes/lesion/induration/fluctuance or signs of infection noted. Skin: Skin warm and dry. Normal skin color. Normal skin turgor. No rashes/lesions/lacerations noted. Extremities: Extremities exhibit normal range of motion and nontender. Neuro: Oriented X 3. No motor deficit. No sensory deficit. Reflexes normal. Normal steady gait. No focal neuro deficits noted. CN's II-XII intact bilaterally? Vascular: + radial pulses/+ 2 distal pedal pulses/+2 dorsalis pedis b/l. Normal cap refill. No cyanosis noted to upper extremity nails and lower extremity toes nails. Course Course Course Narrative: 12noon - 37-year-old female with a past medical history of anemia, vertigo an asthma presenting to the ER with complaints of fevers up to 102, body aches, fatigue, malaise, productive cough with clear/yellow colored sputum, intermittent headaches, nausea and 1 episode of vomiting this morning along with nasal congestion/rhinorrhea for the past 3 days worse today. Reports that her co-worker was positive for COVID and a family member. Patient had a negative COVID swab all in the waiting room. Plan: Awaiting chest x-ray. If negative will DC home with symptomatic treatment instructions return if any new or worsening symptoms follow up with primary care provider. Patient understands agrees with this plan. MDM - URI/Sore Throat Medical Records Attestation: I reviewed the patient's medical records. Lab Data Attestation: I reviewed the patient's lab results. Labs: Lab Results 08/08/22 Range/Units 08:41 COVID-19 ([facility]) Negative (Negative) COVID-19 Clin Com See Note Imaging Data Chest x-ray: Attestation: I personally reviewed and interpreted this imaging study as follows: Radiologist's impression: FINDINGS: Normal appearance of the cardiomediastinal silhouette. No focal airspace opacity, pleural effusion or pneumothorax. No acute osseous abnormalities. The visualized upper abdomen is within normal limits. XR/XR chest 2V IMPRESSION: No acute cardiopulmonary findings. Discharge Plan Discharge Clinical Impression: Upper respiratory infection Patient Disposition: Home, Self-Care Instructions: Upper Respiratory Infection (ED) Prescriptions: New azithromycin 250 mg tablet See Rx Instructions PO .COMPLEX Qty: 6 0RF Rx Instructions: take 500 mg today (day 1), then 250 mg for 4 days (days 2-5) ondansetron 4 mg tablet,disintegrating 4 mg PO Q8H Qty: 14 0RF No Action albuterol sulfate 90 mcg/actuation HFA aerosol inhaler 2 puff inhalation Q6H PRN (Reason: shortness of breath or wheezing) 30 Days Qty: 6.7 0RF ferrous sulfate 325 mg (65 mg iron) tablet 325 mg PO DAILY 90 Days Qty: 90 3RF meclizine 25 mg tablet 25 mg PO TID PRN (Reason: dizziness) 30 Days Qty: 90 1RF cyclobenzaprine 10 mg tablet 10 mg PO TID PRN (Reason: muscle spasm) Qty: 15 0RF naproxen [Naprosyn] 500 mg tablet 500 mg PO BID Qty: 20 0RF Xulane 150-35 mcg/24 hr patch weekly 1 patch topical QWEEK naproxen 500 mg tablet 500 mg PO BID PRN (Reason: pain) Qty: 20 0RF prednisone 20 mg tablet 40 mg PO BID Qty: 10 0RF Referrals: Harriet Montanez MD [Primary Care Provider] - 3 days Stand Alone Forms: Work/School Release Interventions: ED Discharge Assessment Last Done: 08/08/22 13:33 Discharge Date/Time: 08/08/22 13:34 Print Language: Emirati
== END 2022-08-08 13:34 | disposition home or self-care (01) ==
PROVIDERS: Emergency Provider Emergency Medicine; PCP Internal Medicine
DX: J06.9 Acute upper respiratory infection, unspecified (principal); Z20.822 Contact with and (suspected) exposure to COVID-19
CPT/HCPCS: 71046; 87635; 99282; 99283

== ENCOUNTER 2022-10-30 08:49 | Outpatient (REF) | payer OTHER, SELFPAY ==
[2022-10-30 09:03] LABS: MANUAL DIFF FLAG NO
[2022-10-30 09:17] LABS: Basophils Absolute Auto 0.1 X10*3/uL (0.0-0.2); Basophils Percent Auto 0.7 % (0-2); Eosinophils Absolute Auto 0.2 X10*3/uL (0.0-0.4); Eosinophils Percent Auto 2.8 % (0-4); Hematocrit 42.1 % (37.0-47.0); Hemoglobin 13.6 g/dl (12.0-16.0); Imm Gran Abs Auto 0.03 X10*3/uL (0.00-0.03); Imm Gran Pct Auto 0.4 % (0.0-0.4); Lymphocytes Absolute Auto 2.6 X10*3/uL (1.2-4.9); Lymphocytes Percent Auto 35.1 % (20-40); Mean Corpuscular HGB Conc 32.3 g/dl (31.0-35.0); Mean Corpuscular Hemoglobin 26.4 pg (27.0-33.0); Mean Corpuscular Volume 81.7 fL (80.0-98.0); Mean Platelet Volume 10.9 fL (9.4-12.3); Monocytes Absolute Auto 0.6 X10*3/uL (0.1-1.2); Monocytes Percent Auto 7.9 % (2-11); Neutrophils Absolute Auto 3.9 x10*3/uL (2.0-8.3); Neutrophils Percent Auto 53.1 % (45-73); Platelet Count 281 X10*3/uL (160-400); Red Blood Count 5.15 X10*6/uL (4.20-5.50); Red Cell Distribution Width 13.4 % (11.0-16.0); White Blood Count 7.4 X10*3/uL (4.8-10.8)
[2022-10-30 09:52] LABS: Iron 82 mcg/dL (30-160); Percent Iron Saturation 19 % (15-50); Total Iron Binding Capacity 421 mcg/dL (228-428); Unsaturated Iron Binding 339 ug/dL
== END 2022-10-30 08:50 | disposition home or self-care (01) ==
LOC: HO.LAB 08:49
PROVIDERS: PCP Internal Medicine; Visit Provider Internal Medicine
DX: D64.9 Anemia, unspecified (principal)
CPT/HCPCS: 36415; 83540; 85025

== ENCOUNTER → 2022-11-26 13:41 | Outpatient (BNVA) | payer OTHER, SELFPAY | PROVIDERS: PCP Internal Medicine; Visit Provider Orthopaedic Surgery | DX: M54.12 Radiculopathy, cervical region (principal); M65.4 Radial styloid tenosynovitis [de Quervain]; R20.0 Anesthesia of skin | CPT/HCPCS: 99202; J1100 ==

== ENCOUNTER 2022-12-22 13:20 | Outpatient (REF) | payer OTHER, SELFPAY ==
[2022-12-24 18:39] LABS: TS Negative Control Passed; TS Panel A 0; TS Panel B 2; TS Positive Control Passed; TSpotTB Negative (Negative)
== END 2022-12-22 13:21 | disposition home or self-care (01) ==
LOC: HO.LAB 13:20
PROVIDERS: PCP Internal Medicine; Visit Provider Internal Medicine
DX: Z11.1 Encounter for screening for respiratory tuberculosis (principal)
CPT/HCPCS: 36415; 86481

== ENCOUNTER 2023-01-14 12:43 | Outpatient (REF) | payer OTHER, SELFPAY ==
--- NOTE | 2023-01-14 | EMG_ITS ---
Please see scanned EMG / Nerve Conduction Report. MTDD
== END 2023-01-14 12:44 | disposition home or self-care (01) ==
LOC: HO.NEURO 12:43
PROVIDERS: PCP Internal Medicine; Visit Provider Orthopaedic Surgery
DX: R20.0 Anesthesia of skin (principal); R20.2 Paresthesia of skin
CPT/HCPCS: 95885; 95913

== ENCOUNTER 2023-09-19 05:29 | Emergency (ER) | payer OTHER, SELFPAY ==
--- NOTE | ~2023-09-19 | XR_ITS ---
EXAMINATION: XR CHEST CLINICAL INFORMATION: Cough COMPARISON: Previous chest x-ray most recent July 2022 TECHNIQUE: 2 views of the chest were obtained. FINDINGS: No significant abnormality is noted involving the heart, lungs, mediastinum, bony thorax or soft tissues. Mild thoracolumbar scoliosis. XR/XR chest 2V IMPRESSION: No evidence for acute disease in the chest.
[2023-09-19 05:38] VITALS: BP 137/70; PULSE 103; RESP 18; TEMP 36.8; O2SAT 98; BMI 31.3
[2023-09-19 06:10] LABS: COVID-19 Test Positive (Negative); IDNOW Serial# 9DB6401D
--- NOTE | 2023-09-19 06:49 | ED.URI ---
HPI - URI/Sore Throat General Chief Complaint: General Medical Stated Complaint: Fever, Nausea, Cough Time Seen by Provider: 09/19/23 06:34 Source: patient Mode of arrival: ambulatory Limitations: language barrier ( Vincentian-speaking portrait studio photographer utilized) History of Present Illness HPI Narrative: Patient is a 38-year-old female who presents to the emergency department after tested positive for COVID-19 at home. She reports frequent experiencing symptoms for the past 2 days fever responding to Tylenol, nausea without vomiting, headache without dizziness/ lightheadedness /present changes /neck pain, sore throat without difficulty swallowing, nonproductive. Her is ill with similar symptoms as well. She has been vaccinated for COVID- 19 x 3 with Moderna. She has never had a COVID-19 infection before, so she states she came to the hospital to figure out what to do Related Data Home Medications Medication Instructions Recorded Confirmed norelgestromin 150 mcg-e.estradiol 1 patch topical QWEEK 02/19/21 03/11/23 35 mcg/24 hr weekly transderm patch (Xulane) Previous Rx's Medication Instructions Recorded albuterol sulfate 90 mcg/actuation 2 puff inhalation Q6H PRN 02/02/22 aerosol inhaler shortness of breath or wheezing 30 days #6.7 grams ferrous sulfate 325 mg (65 mg 325 mg PO DAILY Iron deficiency 02/20/22 iron) tablet anemia 90 days #90 tabs cyclobenzaprine 10 mg tablet 10 mg PO TID PRN muscle spasm #15 11/19/22 tabs naproxen 500 mg tablet (Naprosyn) 500 mg PO BID #20 tabs 11/19/22 meclizine 25 mg tablet 25 mg PO TID PRN dizziness 30 days 07/28/23 #90 tabs Allergies Allergy/AdvReac Type Severity Reaction Status Date / Time No Known Allergies Allergy Verified 09/19/23 05:37 Review of Systems Review of Systems: Yes all other systems are reviewed and are negative PMFSH Past Medical History Attestation statement: The following information was validated with the patient. Source: old records reviewed Medical History Right knee pain Thoracic spine pain Hearing loss, right Obese Vertigo Surgical History History of extraction of renal calculus History of cholecystectomy History of appendectomy Family History Family History Father Hypertension Mother No problems noted. Sister Thalassemia Asthma Maternal Grandmother Heart disease Daughter In good health Daughter In good health Maternal Uncle DVT (deep venous thrombosis) Sister Asthma Social History Social History Housing: Apartment Alcohol intake: current Alcohol intake frequency: holidays/special occasions only Patient Tobacco Use Status: Never used Tobacco Smoked in Last 30 Days: No e-Cigarette/Vaping Use: Never Used Second Hand Smoke Exposure: No Use of substances other than those prescribed or required for medical reasons: No Advance Directives: No Advance Directives Information Provided: Yes Patient : No service: No Current occupational status: employed Current occupation: [employer] Current occupational exposures/hazards: No Cognitive needs: No Hearing needs: No Vision needs: No Physical Exam Vital Signs: Vital Signs: Last Vital Signs Temp 98.3 F 09/19/23 05:38 Pulse 103 H 09/19/23 05:38 Resp 18 09/19/23 05:38 BP 137/70 09/19/23 05:38 Pulse Ox 98 09/19/23 05:38 O2 Del Method Room Air 09/19/23 05:38 BMI result Body Mass Index 31.3 Appearance: Alert.?Oriented to person, place and time. No acute distress.?Normal affect. Eyes: Pupils equal, round and reactive to light.? ENT: TM normal bilaterally. Pharynx normal.?? Neck: Normal inspection.? Neck supple.??No cervical adenopathy CVS: Heart sounds normal. Normal heart rate and rhythm.? Pulses normal.?? Respiratory: No respiratory distress.? Lung sounds clear to auscultation bilaterally?? Abdomen: Soft and non-tender. Normoactive bowel sounds. Skin: Skin warm and dry.? Normal skin color.? ? Extremities: No lower extremity edema.? Neuro: Moves all extremities spontaneously. Sensation intact bilaterally. No motor deficits. Ambulates with normal steady gait. Medical Decision Making Medical Decision Making MDM Narrative: Patient is a 38-year-old female with past medical history of asthma, presenting for evaluation of upper respiratory symptoms. COVID-19 testing positive. At this time history and physical exam not consistent with peritonsillar/retropharyngeal abscess/pneumonia. Well-appearing, nontoxic, afebrile, or tachypnea/hypoxia. Speaking clear full sentences, ambulatory with steady gait. offered treatment with Paxlovid, discussed indications for use, side effects, complications, medication interactions, patient ultimately declined treatment. Discussed conservative treatment including rest, hydration, Tylenol/ibuprofen as needed for fever and body aches, saline nasal spray, humidifier, [id number] cold medication. Advised to follow-up with primary care provider as needed, discussed reasons to return back to the emergency department. All questions were answered. Patient discharged home in stable condition. Provided with a return to work note. Differential Diagnosis Differential Diagnoses: The differential diagnosis associated with the presentation includes ( as noted above) Lab Data MDM Lab Attestation statement: I reviewed the patient's lab results. Labs: Lab Results 09/19/23 Range/Units 05:49 COVID-19 ([facility]) Positive A (Negative) COVID-19 Clin Com See Note Independent Interpretation I performed an independent interpretation of an: Plain X-Ray ( I personally interpreted chest x-ray and agree with radiologist impression, no evidence of consolidation or infiltrate) Radiology Impression Discussion of test interpretation with radiology: I have reviewed the radiologist's reading. Radiologist Impression: XR/XR chest 2V IMPRESSION: No evidence for acute disease in the chest. Independent Historian Clinical information obtained from an independent historian. History obtained from or confirmed by: Spouse ( present at bedside who confirms history) External Record Review External record reviewed: Outpatient record Prescription Management I considered prescription management with: Antiviral ( see narrative above for further detail) Discharge Plan Discharge Clinical Impression: COVID-19 Patient Disposition: Home, Self-Care Instructions: COVID-19 (Coronavirus Disease 2019) (ED) Additional Instructions: You have tested positive for COVID- 19. You were offered treatment with Paxlovid, however you have declined. Please wear mask in socially distance at all times possible. You should remain home as much as you can. Per the CDC guidelines are a return back to work or and social distancing once it has been 5 days since the onset of your symptoms, you are feeling better, and or without a fever without the use of Tylenol or ibuprofen. Your soonest return to work date/ and isolation date is Thursday09/22/2023 Be sure to rest, stay well hydrated drinking plenty of fluids, eat small frequent meals. You can take ibuprofen 200 mg, 3 tablets (600mg) every 6-8 hours as needed for pain, in addition to Tylenol 500 mg, 2 tablets (1,000mg) every 4-6 hours as needed for pain, but not to exceed 3 doses daily (3,000mg).? [id number] cold medications may be helpful as well for symptoms. Saline nasal spray, humidifier may be helpful for nasal congestion. You may return to the emergency department with any new or worsening symptoms or concerns. Follow-up with your primary care provider as needed. S Prescriptions: No Action albuterol sulfate 90 mcg/actuation HFA aerosol inhaler 2 puff inhalation Q6H PRN (Reason: shortness of breath or wheezing) 30 Days Qty: 6.7 0RF ferrous sulfate 325 mg (65 mg iron) tablet 325 mg PO DAILY 90 Days Qty: 90 3RF cyclobenzaprine 10 mg tablet 10 mg PO TID PRN (Reason: muscle spasm) Qty: 15 0RF naproxen [Naprosyn] 500 mg tablet 500 mg PO BID Qty: 20 0RF meclizine 25 mg tablet 25 mg PO TID PRN (Reason: dizziness) 30 Days Qty: 90 1RF Xulane 150-35 mcg/24 hr patch weekly 1 patch topical QWEEK Referrals: Harriet Montanez MD [Primary Care Provider] - Stand Alone Forms: Work/School Release Interventions: ED Discharge Assessment Last Done: 09/19/23 06:55 Discharge Date/Time: 09/19/23 06:59
== END 2023-09-19 06:59 | disposition home or self-care (01) ==
PROVIDERS: Emergency Provider Emergency Medicine; PCP Internal Medicine
DX: U07.1 COVID-19 (principal); R50.9 Fever, unspecified
CPT/HCPCS: 71046; 87635; 99283; 99284

== ENCOUNTER 2023-12-09 13:42 | Outpatient (AMB) | payer OTHER, SELFPAY ==
--- NOTE | 2023-12-09 13:52 | MHC.PC.OV ---
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 Accompanied by: Self / Same As Patient Allergies No Known Allergies Allergy (Verified 12/09/23 14:09) Medication List - Last Reconciled 12/09/23 by Harriet Mayfield MD albuterol sulfate 90 mcg/actuation 2 puffs inhalation Q6H PRN 30 days cyclobenzaprine 10 mg PO TID PRN meclizine 25 mg PO TID PRN 30 days naproxen (Naprosyn) 500 mg PO BID norelgestromin-ethin.estradiol 150-35 mcg/24 hr (Xulane) 1 patch topical QWEEK Tobacco use date assessed: 12/09/23 Dental Screening Dental Screen Date: 12/09/23 Did you have a dental visit in the last 12 months?: No Did you have a dental problem in the last 6 months where you did not have access to dental care?: No Was dental information given to patient?: Patient has dentist HPI HPI Comments History of Present Illness Details This is a 38-year-old female with vertigo which complains feeling like the room is spinning since Thursday12/07/2023. She denies any ear complaint. No nasal congestion. This happens occasionally and usually resolves with meclizine as needed. She feels much better today and is ready to go to work tomorrow. She was not able to drive December 07 and December 08. No chest pain or shortness of breath. [facility] Medical History Right knee pain Thoracic spine pain Hearing loss, right Obese Vertigo Surgical History History of extraction of renal calculus History of cholecystectomy History of appendectomy Family History Father Hypertension Mother No problems noted. 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 1. Little interest or pleasure in doing things: not at all 2. Feeling down, depressed, or hopeless: not at all 3. Trouble falling or staying asleep, or sleeping too much: not at all 4. Feeling tired or having little energy: not at all 5. Poor appetite or overeating: not at all 6. Feeling bad about yourself - or that you are a failure or have let yourself or your family down: not at all 7. Trouble concentrating on things, such as reading the newspaper or watching television: not at all 8. Moving or speaking so slowly that other people could have noticed. Or the opposite - being so fidgety or restless that you have been moving around a lot more than usual: not at all 9. Thoughts that you would be better off or of hurting yourself in some way: not at all Total score: 0 Depression Screening Interpretation: Negative Depression Screening Done: Yes 24633 - PHQ-9 Billing: Yes Source: Developed by Drs. Raul Lora, Pearl Franz, Mehran Vazquez and colleagues, with an educational denise from [employer]. Thrive Questionnaire Date Thrive assessed: 12/09/23 I am a: Patient What is your living situation today?: I have a steady place to live Within the past 12 months, did the food you bought not last and you didn't have the money to get more?: Never true Within the past 12 months, did you worry whether your food would run out before you got money to buy more?: Never true Do you have trouble paying for medicines?: No Do you have trouble getting transportation to medical appointments?: No Do you have trouble paying your heating and electricity bill?: No Do you have trouble taking care of your child, family member or friend?: No Do you have trouble with day-to-day activities such as bathing, preparing meals, shopping, managing finances, etc.?: No Are you currently unemployed and looking for a job?: No Are you interested in more education?: No Please select the resources that you would like help with: None Currently or been in a relationship where the following occur: no concerns reported THRIVE Score: 0 AUDIT C Alcohol Use Questionnaire (AUDIT-C) 1. How often do you have a drink containing alcohol?: Never Total Score: 0 LEANNA-7 AMB Questionnaire LEANNA-7 Date LEANNA - 7 assessed: 12/09/23 Feeling nervous, anxious, or on edge: 0 = Not at all Not being able to stop or control worryin = Not at all Worrying too much about different things: 0 = Not at all Trouble relaxin = Not at all Being so restless that it is hard to sit still: 0 = Not at all Becoming easily annoyed or irritable: 0 = Not at all Feeling afraid as if something awful might happen: 0 = Not at all Total LEANNA-7 score (0-4 normal; 5-9 mild; 10-14 moderate; 15-21 severe): 0 Source: Developed by Drs. Raul Lora, Pearl Franz, Mehran Vazquez and colleagues, with an educational denise from [employer]. LEANNA-7 Assessment Billing LEANNA-7 Assessment Tool: LEANNA-7 Assessment 99733 Review of Systems Const All systems reviewed & are unremarkable except as noted in HPI and below Eyes Reports no additional complaints, Denies change in vision and Denies other visual disturbances Card Denies chest pain at rest, Denies chest pain with activity, Denies edema, Denies irregular heart rhythm, Denies claudication, Denies dyspnea, Denies dyspnea on exertion, Denies orthopnea, Denies paroxysmal nocturnal dyspnea and Denies slow heart rate Resp Denies cough, Denies dyspnea and Denies dyspnea on exertion GI Denies abdominal pain, Denies change in bowel habits, Denies excessive flatus, Denies nausea and Denies vomiting Denies urinary incontinence, Denies urinary hesitancy and Denies urinary urgency Musc Denies abnormal gait, Denies atrophy, Denies deformity and Denies limited range of motion Skin/Breast Denies bleeding lesions, Denies changing lesions and Denies rash Neuro Denies abnormal gait and Denies lack of coordination Physical exam (Primary Care) Vital Signs: Last Vital Signs BP 100/76 12/09/23 13:53 BMI result Body Mass Index 31.9 Tobacco/Smoking Status: Tobacco use Status Tobacco use date assessed 12/09/23 12/09/23 13:55 Patient Tobacco Use Status Never used Tobacco 12/09/23 13:53 e-Cigarette/Vaping Use Never Used 12/09/23 13:53 PHQ-9: PHQ-9 Score PHQ-9: Total score 0 12/09/23 14:30 Depression Screening Interpretation: Negative Thrive Assessment: Date of Thrive Assessment Date Thrive assessed 12/09/23 12/09/23 13:59 Currently or been in a relationship where the following occur: no concerns reported Eyes General: appearance normal, both eyes and all related structures Eyelids: Yes eyelids normal Conjunctivae: conjunctivae normal Neck Neck: Yes normal visual inspection and Yes supple Resp Effort & Inspection: normal respiratory effort Auscultation: clear to auscultation bilaterally Cardio Jugular venous distension: no JVD Rate: regular rate Rhythm: regular rhythm Heart sounds: S1 normal heart sound present and S2 normal heart sound present Extrem General: Yes full ROM Assessment and Plan Assessment & Plan (1) Vertigo: Code(s): R42 - Dizziness and giddiness Plan: Continue meclizine as needed. Coding Level of Care Code Est Pt Level 3 (58412) Diagnoses Vertigo R42 Additional Codes LEANNA-7 Assessment Billing - LEANNA-7 Assessment Tool: LEANNA-7 Assessment 39214 ([id number]) Time Spent (min) 19
[2023-12-09 13:53] VITALS: BP 100/76; BMI 31.9
== END 2023-12-09 14:16 | disposition home or self-care (01) ==
PROVIDERS: PCP Internal Medicine; Visit Provider Internal Medicine
DX: R42 Dizziness and giddiness (principal)
CPT/HCPCS: 99213

== ENCOUNTER 2024-01-13 11:13 | Outpatient (REF) | payer OTHER, SELFPAY ==
[2024-01-13 11:29] LABS: MANUAL DIFF FLAG NO
[2024-01-13 11:54] LABS: Basophils Absolute Auto 0.1 X10*3/uL (0.0-0.2); Basophils Percent Auto 0.8 % (0-2); Eosinophils Absolute Auto 0.2 X10*3/uL (0.0-0.4); Eosinophils Percent Auto 3.4 % (0-4); Hematocrit 36.6 % (37.0-47.0); Hemoglobin 11.5 g/dl (12.0-16.0); Imm Gran Abs Auto 0.03 X10*3/uL (0.00-0.03); Imm Gran Pct Auto 0.5 % (0.0-0.4); Lymphocytes Absolute Auto 2.4 X10*3/uL (1.2-4.9); Lymphocytes Percent Auto 37.4 % (20-40); Mean Corpuscular HGB Conc 31.4 g/dl (31.0-35.0); Mean Corpuscular Hemoglobin 22.6 pg (27.0-33.0); Mean Platelet Volume 10.1 fL (9.4-12.3); Monocytes Absolute Auto 0.7 X10*3/uL (0.1-1.2); Monocytes Percent Auto 10.3 % (2-11); Neutrophils Absolute Auto 3.1 x10*3/uL (2.0-8.3); Neutrophils Percent Auto 47.6 % (45-73); Platelet Count 315 X10*3/uL (160-400); Red Blood Count 5.08 X10*6/uL (4.20-5.50); Red Cell Distribution Width 15.4 % (11.0-16.0); White Blood Count 6.5 X10*3/uL (4.8-10.8)
[2024-01-13 12:31] LABS: Iron 28 mcg/dL (30-160); Percent Iron Saturation 7 % (15-50); Total Iron Binding Capacity 401 mcg/dL (228-428); Unsaturated Iron Binding 373 ug/dL
== END 2024-01-13 11:14 | disposition home or self-care (01) ==
LOC: HO.LAB 11:13
PROVIDERS: PCP Internal Medicine; Visit Provider Internal Medicine
DX: D64.9 Anemia, unspecified (principal)
CPT/HCPCS: 36415; 83540; 85025

== ENCOUNTER 2024-03-17 09:20 | Outpatient (AMB) | payer OTHER, SELFPAY ==
[2024-03-17 09:22] VITALS: BP 102/70; BMI 31.3
--- NOTE | 2024-03-17 09:22 | A.OFFPC_ITS ---
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: No Accompanied by: Self / Same As Patient Allergies No Known Allergies Allergy (Verified 03/17/24 09:33) Medication List - Last Reconciled 03/17/24 by Harriet Mayfield MD albuterol sulfate 90 mcg/actuation 2 puffs inhalation Q6H PRN 30 days cyclobenzaprine 10 mg PO TID PRN ferrous sulfate 325 mg PO DAILY 90 days meclizine 25 mg PO TID PRN 30 days norelgestromin-ethin.estradiol 150-35 mcg/24 hr (Xulane) 1 patch topical QWEEK Tobacco use date assessed: 12/09/23 Dental Screening Dental Screen Date: 12/09/23 HPI HPI Comments History of Present Illness Details This is a 38-year-old female that comes for her physical exam. Last Pap smear was done in and is scheduled for another Pap smear at [facility] next month. Has never had a mammogram. No family history of cancer. No chest pain or shortness of breath. Compliant with medications. [facility] Medical History (Updated 03/17/24 @ 09:45 by Harriet Mayfield MD) Depression Right knee pain Thoracic spine pain Hearing loss, right Obese Vertigo Surgical History History of extraction of renal calculus History of cholecystectomy History of appendectomy Family History Father Hypertension Mother No problems noted. 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 1. Little interest or pleasure in doing things: not at all 2. Feeling down, depressed, or hopeless: not at all 3. Trouble falling or staying asleep, or sleeping too much: not at all 4. Feeling tired or having little energy: not at all 5. Poor appetite or overeating: not at all 6. Feeling bad about yourself - or that you are a failure or have let yourself or your family down: not at all 7. Trouble concentrating on things, such as reading the newspaper or watching television: not at all 8. Moving or speaking so slowly that other people could have noticed. Or the opposite - being so fidgety or restless that you have been moving around a lot more than usual: not at all 9. Thoughts that you would be better off or of hurting yourself in some way: not at all Total score: 0 Depression Screening Interpretation: Negative Depression Screening Done: Yes 40061 - PHQ-9 Billing: Yes Source: Developed by Drs. Raul Lora, Mehran Soriano and colleagues, with an educational denise from [employer]. Thrive Questionnaire Date Thrive assessed: 12/09/23 AUDIT C Alcohol Use Questionnaire (AUDIT-C) 1. How often do you have a drink containing alcohol?: Never Total Score: 0 Score Reviewed/Action Taken: No LEANNA-7 AMB Questionnaire LEANNA-7 Date LEANNA - 7 assessed: 12/09/23 Source: Developed by Drs. Raul Lora, Mehran Soriano and colleagues, with an educational denise from [employer]. Review of Systems Const All systems reviewed & are unremarkable except as noted in HPI and below Eyes Reports no additional complaints, Denies change in vision and Denies other visual disturbances Card Denies chest pain at rest, Denies chest pain with activity, Denies edema, Denies irregular heart rhythm, Denies claudication, Denies dyspnea, Denies dyspnea on exertion, Denies orthopnea, Denies paroxysmal nocturnal dyspnea and Denies slow heart rate Resp Denies cough, Denies dyspnea and Denies dyspnea on exertion GI Denies abdominal pain, Denies change in bowel habits, Denies excessive flatus, Denies nausea and Denies vomiting Denies urinary incontinence, Denies urinary hesitancy and Denies urinary urgency Neuro Denies behavioral changes, Denies confusion and Denies lack of coordination Psych Denies behavioral changes and Denies confusion Physical exam (Primary Care) Vital Signs: Last Vital Signs BP 102/70 03/17/24 09:22 BMI result Body Mass Index 31.3 Tobacco/Smoking Status: Tobacco use Status Tobacco use date assessed 12/09/23 03/17/24 09:26 Patient Tobacco Use Status Never used Tobacco 03/17/24 09:26 e-Cigarette/Vaping Use Never Used 03/17/24 09:26 Depression Screening Interpretation: Negative Thrive Assessment: Date of Thrive Assessment Date Thrive assessed 12/09/23 03/17/24 09:26 Const General: No confusion Orientation/consciousness: patient oriented x3 and No confusion HENMT Head: Yes normal to inspection, Yes normocephalic and Yes atraumatic Ears: external ears normal Eyes General: appearance normal, both eyes and all related structures Eyelids: Yes eyelids normal Conjunctivae: conjunctivae normal Neck Neck: Yes normal visual inspection and Yes supple Resp Effort & Inspection: normal respiratory effort Auscultation: clear to auscultation bilaterally Cardio Jugular venous distension: no JVD Rate: regular rate Rhythm: regular rhythm Heart sounds: S1 normal heart sound present and S2 normal heart sound present GI Inspection: Yes normal to inspection Palpation (GI): Soft to palpation and nontender Auscultation: normal bowel sounds Skin General skin exam: no rashes or lesions noted Neuro General: patient oriented x3, no focal motor deficits and No confusion Extrem General: Yes full ROM Psych Appearance: grossly normal Assessment and Plan Assessment & Plan (1) Physical exam: Code(s): Z00.00 - Encounter for general adult medical examination without abnormal findings Plan: Repeat in a year. Orders: Orders ECG 12 lead EKG Today R07.9 - Chest pain, unspecified Complete Blood Count Auto Diff Today D64.9 - Anemia, unspecified Vitamin B12 and Folate Today E53.8 - Deficiency of other specified B group vitamins MM screening mammo BI Today Z12.31 - Encounter for screening mammogram for malignant neoplasm of breast IRON PROFILE Today D64.9 - Anemia, unspecified Lipid Panel Today Z00.00 - Encounter for general adult medical examination without abnormal findings Comprehensive [place]. Panel Fast Today Z00.00 - Encounter for general adult medical examination without abnormal findings Coding Level of Care Code Est Pt Prev Care 40-64y(56288) Diagnoses Physical exam Z00.00 Time Spent (min) 30
== END 2024-03-17 09:45 | disposition home or self-care (01) ==
PROVIDERS: Visit Provider Internal Medicine
DX: Z00.00 Encounter for general adult medical examination without abnormal findings (principal)
CPT/HCPCS: 99396

== ENCOUNTER 2024-03-18 08:44 | Outpatient (REF) | payer OTHER, SELFPAY ==
--- NOTE | 2024-03-18 08:59 | ECG_ITS ---
Test Reason : chest pain Blood Pressure : / mmHG Vent. Rate : 068 BPM Atrial Rate : 068 BPM P-R Int : 164 ms QRS Dur : 078 ms QT Int : 422 ms P-R-T Axes : 060 009 019 degrees QTc Int : 448 ms Normal sinus rhythm Nonspecific T wave abnormality Abnormal ECG When compared with ECG of 17-JAN-2021 10:03, No significant change was found Referred By: Harriet Mayfield Electronically Signed By:KAMINI BALLESTEROS
[2024-03-18 09:00] LABS: MANUAL DIFF FLAG NO
[2024-03-18 09:10] LABS: Basophils Absolute Auto 0.1 X10*3/uL (0.0-0.2); Basophils Percent Auto 0.9 % (0-2); Eosinophils Absolute Auto 0.3 X10*3/uL (0.0-0.4); Eosinophils Percent Auto 4.8 % (0-4); Hemoglobin 12.9 g/dl (12.0-16.0); Imm Gran Abs Auto 0.02 X10*3/uL (0.00-0.03); Imm Gran Pct Auto 0.4 % (0.0-0.4); Lymphocytes Percent Auto 36.2 % (20-40); Mean Corpuscular HGB Conc 32.3 g/dl (31.0-35.0); Mean Corpuscular Hemoglobin 25.7 pg (27.0-33.0); Mean Corpuscular Volume 79.7 fL (80.0-98.0); Monocytes Absolute Auto 0.5 X10*3/uL (0.1-1.2); Monocytes Percent Auto 8.4 % (2-11); Neutrophils Absolute Auto 2.8 x10*3/uL (2.0-8.3); Neutrophils Percent Auto 49.3 % (45-73); Platelet Count 279 X10*3/uL (160-400); Red Blood Count 5.02 X10*6/uL (4.20-5.50); Red Cell Distribution Width 15.3 % (11.0-16.0); White Blood Count 5.6 X10*3/uL (4.8-10.8)
[2024-03-18 09:46] LABS: Alanine Aminotransferase 15 U/L (0-31); Albumin Level 4.1 g/dL (3.5-5.0); Alkaline Phosphatase 53 U/L (39-117); Anion Gap 13 (12-20); Aspartate Amino Transferase 15 U/L (5-31); Blood Urea Nitrogen 8 mg/dL (9-16); Calcium 9.5 mg/dL (8.4-10.2); Carbon Dioxide 21 mmol/L (22-29); Chloride 108 mmol/L (96-108); Cholesterol 254 mg/dL (<200); Estimated Glomerular Filt Rate > 60; Glucose Fasting 89 mg/dL (60-99); HDL Cholesterol 54 mg/dL (>40); Iron 63 mcg/dL (30-160); LDL Cholesterol Calculated 170 mg/dL (<100); Percent Iron Saturation 17 % (15-50); Potassium 3.8 mmol/L (3.3-5.1); Sodium 138 mmol/L (135-145); Total Iron Binding Capacity 372 mcg/dL (228-428); Total Protein 7.7 g/dL (6.5-8.0); Triglycerides 151 mg/dL (<150); Unsaturated Iron Binding 309 ug/dL
[2024-03-18 10:55] LABS: Folate 6.6 ng/mL (> or = 4.0); Vitamin B12 405 pg/mL (200-900)
== END 2024-03-18 08:45 | disposition home or self-care (01) ==
LOC: HO.XRAY 08:44
PROVIDERS: PCP Internal Medicine; Visit Provider Internal Medicine
DX: Z00.00 Encounter for general adult medical examination without abnormal findings (principal); R07.9 Chest pain, unspecified; E53.8 Deficiency of other specified B group vitamins; D64.9 Anemia, unspecified
CPT/HCPCS: 36415; 80053; 80061; 82607; 82746; 83540; 85025; 93005

== ENCOUNTER → 2024-03-18 08:59 | Outpatient (BNV) | payer OTHER, SELFPAY | PROVIDERS: PCP Internal Medicine; Visit Provider Internal Medicine | DX: R94.31 Abnormal electrocardiogram [ECG] [EKG] (principal); R07.9 Chest pain, unspecified | CPT/HCPCS: 93010 ==

== ENCOUNTER 2024-04-05 08:48 | Outpatient (REF) | payer OTHER, SELFPAY ==
--- NOTE | ~2024-04-05 | MM_ITS ---
EXAMINATION: MM SCREENING DIGITAL BREAST TOMOSYNTHESIS, BILATERAL CLINICAL INFORMATION: Screening. Asymptomatic. No family history of breast CA. No prior surgeries. (As per technologist note) COMPARISON: Mammography: None. Baseline exam. TECHNIQUE: Digital breast tomosynthesis is performed in both the craniocaudal and mediolateral oblique views along with computer-aided detection (CAD). Synthesized 2D images are generated from the tomosynthesis. FINDINGS: The breasts are heterogeneously dense, which may obscure small masses (ACR BI-RADS breast composition Category c). Breast parenchyma is bordering on extremely dense. Mild duct ectasia is likely present in both retroareolar regions. There are no suspicious masses, suspicious grouped calcifications, or areas of architectural distortion in either breast. No suspicious skin or axillary abnormality. MM/MM tomosynthesis screening BI IMPRESSION: No mammographic evidence of malignancy. ASSESSMENT: BI-RADS BI-RADS 1 - Negative RECOMMENDATION: Routine annual mammography screening. 1 year F/U This examination should not preclude the clinical evaluation of a suspicious palpable abnormality. This patient's information was entered into a reminder system with a target due date for their next mammogram.
== END 2024-04-05 08:49 | disposition home or self-care (01) ==
LOC: HO.MAMMO 08:48
PROVIDERS: PCP Internal Medicine; Visit Provider Internal Medicine
DX: Z12.31 Encounter for screening mammogram for malignant neoplasm of breast (principal)
CPT/HCPCS: 77063; 77067

== ENCOUNTER → 2024-04-05 09:15 | Outpatient (BNV) | payer OTHER, SELFPAY | PROVIDERS: PCP Internal Medicine; Visit Provider Radiology Diagnostic Radiology | DX: Z12.31 Encounter for screening mammogram for malignant neoplasm of breast (principal) | CPT/HCPCS: 77063; 77067 ==

== ENCOUNTER 2024-05-30 08:03 | Day surgery (SDC) | payer OTHER, SELFPAY ==
[2024-05-30] VITALS (10 sets, daily range): BP systolic 109–140; BP diastolic 62–83; PULSE 56–81; RESP 15–20; TEMP 36.4–37.4; O2SAT 93–99; BMI 30.4
--- NOTE | ~2024-05-30 | CT_ITS ---
EXAMINATION: CT ABDOMEN AND PELVIS WITHOUT CONTRAST CLINICAL INFORMATION: Right flank pain. Evaluate for stone. COMPARISON: 11/16/2013 TECHNIQUE: Multidetector volumetric imaging was performed from the superior aspect of the liver through the pubic symphysis. Sagittal and coronal reformatted images were obtained on the technologist's workstation. This CT examination was performed using dose optimization techniques as appropriate, variously including the following: *Automated exposure control *Adjustment of mA and/or kV according to patient size (this includes techniques or standardized protocols for targeted exams where dose is matched to indication/reason for exam; i.e. extremities or head) *Use of iterative reconstruction technique DLP: 517 mGy-cm FINDINGS: LUNG BASES: No pulmonary consolidation or pleural effusion. HEPATOBILIARY: Diffuse hepatic steatosis. Status post cholecystectomy and chronic pneumobilia. PANCREAS: No edema, pancreatic ductal dilatation or mass. SPLEEN: Normal. ADRENAL GLANDS: Normal. KIDNEYS AND URETERS: Kidneys are normal in size. Mild-to moderate right hydronephrosis and proximal hydroureter are caused by a 0.3 x 0.4 x 0.6 cm stone at the L2-L3 level of the proximal ureter. These current findings are nearly identical to those seen on 11/16/2013. The ureteral stone has a density of 1300 Hounsfield units. BLADDER: Normal. BOWEL AND PERITONEUM: Stomach and small bowel are unremarkable. No dilated loops. No overt colonic wall thickening or mesenteric fat stranding. The appendix appears to be surgically absent. No free fluid or pneumoperitoneum. ABDOMINAL WALL: Unremarkable. VASCULATURE: Unremarkable. LYMPH NODES: No pathologic sized lymph nodes in the abdomen or pelvis. No inguinal lymphadenopathy. PELVIC VISCERA: No uterine or adnexal mass. No pelvic free fluid. MUSCULOSKELETAL: No acute or suspicious osseous abnormality. Chronic dextroscoliosis of the visualized lower thoracic and lumbar spine. CT/CT abdomen pelvis wo IV con IMPRESSION: * [id number] right hydronephrosis is caused by a stone within the proximal ureter. Otherwise, kidneys are unremarkable. * Diffuse hepatic steatosis and chronic pneumobilia, status post cholecystectomy.
--- NOTE | ~2024-05-30 | FL_ITS ---
EXAMINATION: XR FLUOROSCOPY WITH IMAGES CLINICAL INFORMATION: Right sided stent. COMPARISON: None available. TECHNIQUE: Fluoroscopy Supervised By: Dr. Ollie Lopez Fluoroscopy Time: 10.3 seconds Cumulative Dose: 1.3547 mGy DAP: 0.5893 Gy-cm2 Images: 2 FINDINGS: Intraoperative fluoroscopy and spot films were performed during a procedure in the OR. An internally dwelling right double-J stent is present. Please correlate with Dr. Ollie Lopez's report for complete details. FL/FL guidance in OR IMPRESSION: Intraoperative fluoroscopy and spot films were obtained. Please see Dr. Ollie Lopez's report for complete details.
--- NOTE | 2024-05-30 08:59 | ED_ITS ---
HPI - Abdominal Pain General Chief Complaint: Abdominal Pain Stated Complaint: vomiting back and abd pain Time Seen by Provider: 05/30/24 08:52 Source: patient Mode of arrival: ambulatory Limitations: no limitations History of Present Illness ED Provider: SARAH REYNOSO PA-C HPI narrative: 38-year-old female with past medical history significant for nephrolithiasis requiring surgical extraction, iron deficiency anemia, asthma presents to the emergency department today for evaluation of right flank pain which woke her from her sleep early this morning. Reports pain is now radiating to right upper and right lower abdomen. Admits to associated nausea and vomiting. Last episode of vomiting was on arrival to ED. she did not take any [id number] medications prior to arrival in ED. She does report history of kidney stones and states this feels similar. Denies fever, chills, dysuria, hematuria, vaginal discharge, constipation, diarrhea. Denies chance of . Admits to history of cholecystectomy and appendectomy in the past. Related Data Home Medications ?Medication ?Instructions ?Recorded ?Confirmed norelgestromin 150 mcg-e.estradiol 1 patch topical QWEEK 02/19/21 03/17/24 35 mcg/24 hr weekly transderm patch (Xulane) Previous Rx's ?Medication ?Instructions ?Recorded albuterol sulfate 90 mcg/actuation 2 puff inhalation Q6H PRN 10/30/23 aerosol inhaler shortness of breath or wheezing 30 days #6.7 grams meclizine 25 mg tablet 25 mg PO TID PRN dizziness 30 days 11/13/23 #90 tabs cyclobenzaprine 10 mg tablet 10 mg PO TID PRN muscle spasm #15 12/12/23 tabs ferrous sulfate 325 mg (65 mg 325 mg PO DAILY 90 days #90 tabs 01/13/24 iron) tablet,delayed release Allergies Allergy/AdvReac Type Severity Reaction Status Date / Time No Known Allergies Allergy Verified 05/30/24 08:10 Review of Systems Review of Systems Constitutional: No fever, chills, fatigue, night sweats, weight changes ENT/Mouth: No ear pain, hearing loss, nasal congestion, sinus pain, rhinorrhea, sore throat Eyes: No eye pain, swelling, redness, vision changes, discharge Cardio: No chest pain, palpitations, DELANEY, orthopnea, peripheral edema Pulm: No SOB, cough, sputum, wheezing, dyspnea, hemoptysis GI: No hematemesis, diarrhea, constipation, hematochezia, melena, +right abdominal pain, +nausea, +vomiting : No irregular bleeding, dysuria, frequency, urgency, hesitancy, hematuria, urinary flow changes, urinary incontinence or retention, +right flank pain MSK: No back pain, neck pain, joint pain, myalgias Skin: No lesions, rashes Neuro: No weakness, numbness, paresthesias, LOC, dizziness, headache Psych: No anxiety/panic, depression, SI/HI, AH/VH All other systems reviewed and are negative. [facility]LY [facility] Past Medical History Attestation statement: The following information was validated with the patient. Source: old records reviewed and nursing notes reviewed Medical History Depression Right knee pain Thoracic spine pain Hearing loss, right Obese Vertigo Surgical History History of extraction of renal calculus History of cholecystectomy History of appendectomy Family History Family History Father Hypertension Mother No problems noted. Sister Thalassemia Asthma Maternal Grandmother Heart disease Daughter In good health Daughter In good health Maternal Uncle DVT (deep venous thrombosis) Sister Asthma Social History Social History Housing: Apartment Alcohol intake: current Patient Tobacco Use Status: Never used Tobacco e-Cigarette/Vaping Use: Never Used Second Hand Smoke Exposure: No Advance Directives: No Advance Directives Information Provided: No service: No Current occupational status: employed Current occupation: [employer] Current occupational exposures/hazards: No Cognitive needs: No Hearing needs: No Vision needs: No Physical Exam ED Vital Signs: Vital Signs - 24 hr 05/30/24 08:09 05/30/24 10:48 05/30/24 11:40 Temperature 97.6 F 98.1 F 98.1 F Pulse Rate 67 58 66 Respiratory Rate 20 17 18 Blood Pressure 126/65 119/65 115/62 Pulse Oximetry 95 99 98 Oxygen Delivery Method Room Air Room Air Room Air BMI result Body Mass Index 30.4 Vital signs stable, afebrile. Const Other: Patient in obvious discomfort rocking back and forth on bed General: cooperative Orientation/consciousness: patient oriented x3 Limitations: no limitations HENMT Head: Yes normal to inspection, Yes No palpable skull fracture present, Yes normocephalic and Yes atraumatic Eyes General: appearance normal, both eyes and all related structures Pupils: Equal, round and reactive pupils present Neck Neck: Yes normal visual inspection, Yes full ROM and Yes no lymphadenopathy Resp Effort & Inspection: normal respiratory effort and able to speak in complete sentences Auscultation: clear to auscultation bilaterally Cardio Rate: regular rate Rhythm: regular rhythm GI Other: Abdomen soft, nondistended, nontender to palpation, no rebound tenderness or guarding. Normoactive bowel sounds x4. Other: + right CVAT Back/Spine/Pelvis Other: No midline spinous tenderness or step off deformity. No paraspinal muscle tenderness. Skin General skin exam: no rashes or lesions noted Neuro General: patient oriented x3 and gait normal Cranial nerves: Yes Equal, round and reactive pupils present Extrem General: Yes normal to inspection Course Course Course Narrative: 1321-- CBC without leukocytosis. No anemia. H&H stable. Chemistry without acute electrolyte abnormality requiring intervention. Normal liver function. BUN 6, creatinine 0.86. Patient receiving IV fluids. Urine shows large amount of blood along with over 20 RBCs which is consistent with patient being on her menstrual period. It also shows small leukocyte esterase, 6-10 WBCs, 6-10 squamous epithelial cells however no bacteria. I do not suspect urinary tract infection as patient denies urinary symptoms. CT abdomen/pelvis showing mild to moderate right hydronephrosis and proximal hydroureter caused by a 0.3 x 0.4 x 0.6 cm stone at the L2-L3 level of the proximal ureter. > on re-evaluation, patient continues to report 6/10 pain after receiving IV morphine. Another dose of IV morphine ordered. > I reached out to on-call urologist, Dr. Lopez regarding workup findings. After reviewing imaging, Dr. Lopez states that patient will require stenting and is requesting patient be NPO. > I discussed this with patient and she is agreeable with this. Will place orders. Medical Decision Making Medical Decision Making MDM Narrative: 38-year-old female with past medical history significant for nephrolithiasis requiring surgical extraction, iron deficiency anemia, asthma presents to the emergency department today for evaluation of right flank pain which woke her from her sleep early this morning. On initial examination, patient obvious discomfort, rocking back and forth on exam bed. Abdomen is nondistended, soft, nontender to palpation, no rebound tenderness or guarding. Normoactive bowel sounds x4. There is right-sided CVAT. Skin w/d/i. Differential diagnosis includes urinary tract infection, renal colic, nephrolithiasis, hydronephrosis, obstructive uropathy. Unlikely cholecystitis, cholangitis, appendicitis, , ectopic, ovarian cyst or rupture, pyelonephritis. Plan for labs, UA, urine , CT abdomen/pelvis, IV fluids, pain control, re-evaluation. Differential Diagnosis Differential Diagnoses: The differential diagnosis associated with the presentation includes As above Admission/Observation Consideration of admission/observation: Escalation of care including admission/observation considered Patient to be admitted to urology service with plan for OR for cystoscopy and stent placement Consult Healthcare Provider Management of the patient was discussed with: Channeler Outsole (urologist Dr. Lopez) Lab Data MDM Lab Attestation statement: I reviewed the patient's lab results. As above 05/30/24 09:28 05/30/24 09:28 Labs: Lab Results 05/30/24 05/30/24 Range/Units 09:28 11:39 WBC 10.7 (4.8-10.8) X10*3/uL RBC 5.25 (4.20-5.50) X10*6/uL Hgb 13.9 (12.0-16.0) g/dl Hct 42.3 (37.0-47.0) % MCV 80.6 (80.0-98.0) fL MCH 26.5 L (27.0-33.0) pg MCHC 32.9 (31.0-35.0) g/dl RDW 13.8 (11.0-16.0) % Plt Count 261 (160-400) X10*3/uL MPV 10.5 (9.4-12.3) fL Immature Gran % (Auto) 0.6 H (0.0-0.4) % Neut % (Auto) 80.2 H (45-73) % Lymph % (Auto) 12.3 L (20-40) % [place] % (Auto) 5.7 (2-11) % Eos % (Auto) 0.7 (0-4) % Baso % (Auto) 0.5 (0-2) % Lymph # (Auto) 1.3 (1.2-4.9) X10*3/uL [place] # (Auto) 0.6 (0.1-1.2) X10*3/uL Eos # (Auto) 0.1 (0.0-0.4) X10*3/uL Baso # (Auto) 0.1 (0.0-0.2) X10*3/uL Abs Immat Gran (auto) 0.06 H (0.00-0.03) X10*3/uL Absolute Neuts (auto) 8.6 H (2.0-8.3) x10*3/uL Absolute Nucleated RBC 0.000 (0.0-0.012) X10*3/uL Nucleated RBC % (auto) 0.0 (0.0-0.2) /100WBC Sodium 141 (135-145) mmol/L Potassium 4.8 D (3.3-5.1) mmol/L Chloride 111 H (96-108) mmol/L Carbon Dioxide 20 L (22-29) mmol/L Anion Gap 15 (12-20) BUN 6 L (9-16) mg/dL Creatinine 0.86 (0.5-1.4) mg/dL Estim Creat Clear Calc 73.0 Estimated GFR > 60 Random Glucose 110 (60-115) mg/dL Calcium 9.2 (8.4-10.2) mg/dL Total Bilirubin 0.7 (0.0-1.0) mg/dL Direct Bilirubin 0.2 (0.0-0.5) mg/dL AST 31 (5-31) U/L ALT 16 (0-31) U/L Alkaline Phosphatase 65 (39-117) U/L Total Protein 8.3 H (6.5-8.0) g/dL Albumin 4.1 (3.5-5.0) g/dL Lipase 25 (8-78) U/L Beta HCG, Quant < 2 mIU/mL Urine Color Yellow Urine Appearance Cloudy Urine pH 5.5 (5.0-9.0) Ur Specific [place] 1.015 (1.005-1.025) Urine Protein Trace (Neg-Trace) mg/dL Urine Glucose (UA) Negative (Negative) mg/dL Urine Ketones Trace (Negative) mg/dL Urine Blood Large (3+) H (Negative) Urine Nitrite Negative (Negative) Ur Leukocyte Esterase Small (1+) H (Negative) Urine RBC >20 H (0-2) /HPF Urine WBC 6-10 H (0-5) /HPF Ur Squamous Epith Cells 6-10 (0-2) /HPF Urine Bacteria None Seen (None Seen) Hyaline Casts 0-2 (0-2) /LPF Urine Test NEGATIVE (NEGATIVE) Independent Interpretation I performed an independent interpretation of an: CT Scan Interpretation: CT abdomen/pelvis showing right hydronephrosis, agree with radiologist's interpretation. Radiology Impression Discussion of test interpretation with radiology: I have reviewed the radiologist's reading. Radiologist Impression: EXAMINATION: CT ABDOMEN AND PELVIS WITHOUT CONTRAST CLINICAL INFORMATION: Right flank pain. Evaluate for stone. COMPARISON: 11/16/2013 TECHNIQUE: Multidetector volumetric imaging was performed from the superior aspect of the liver through the pubic symphysis. Sagittal and coronal reformatted images were obtained on the technologist's workstation. This CT examination was performed using dose optimization techniques as appropriate, variously including the following: *Automated exposure control *Adjustment of mA and/or kV according to patient size (this includes techniques or standardized protocols for targeted exams where dose is matched to indication/reason for exam; i.e. extremities or head) *Use of iterative reconstruction technique DLP: 517 mGy-cm FINDINGS: LUNG BASES: No pulmonary consolidation or pleural effusion. HEPATOBILIARY: Diffuse hepatic steatosis. Status post cholecystectomy and chronic pneumobilia. PANCREAS: No edema, pancreatic ductal dilatation or mass. SPLEEN: Normal. ADRENAL GLANDS: Normal. KIDNEYS AND URETERS: Kidneys are normal in size. Mild-to moderate right hydronephrosis and proximal hydroureter are caused by a 0.3 x 0.4 x 0.6 cm stone at the L2-L3 level of the proximal ureter. These current findings are nearly identical to those seen on 11/16/2013. The ureteral stone has a density of 1300 Hounsfield units. BLADDER: Normal. BOWEL AND PERITONEUM: Stomach and small bowel are unremarkable. No dilated loops. No overt colonic wall thickening or mesenteric fat stranding. The appendix appears to be surgically absent. No free fluid or pneumoperitoneum. ABDOMINAL WALL: Unremarkable. VASCULATURE: Unremarkable. LYMPH NODES: No pathologic sized lymph nodes in the abdomen or pelvis. No inguinal lymphadenopathy. PELVIC VISCERA: No uterine or adnexal mass. No pelvic free fluid. MUSCULOSKELETAL: No acute or suspicious osseous abnormality. Chronic dextroscoliosis of the visualized lower thoracic and lumbar spine. CT/CT abdomen pelvis wo IV con IMPRESSION: * [id number] right hydronephrosis is caused by a stone within the proximal ureter. Otherwise, kidneys are unremarkable. * Diffuse hepatic steatosis and chronic pneumobilia, status post cholecystectomy. External Record Review External record reviewed: Inpatient record Prescription Management I considered prescription management with: Pain Medication Chronic Conditions Patient?s care impacted by: Other (nephrolithiasis) Social Determinants Patient?s care significantly limited by Social Determinants of Health including: Other Social Determinant of Health Medications Administered Discontinued Medications Generic Name Dose Route Start Last Admin Trade Name Freq PRN Reason Stop Dose Admin Sodium Chloride 1,000 mls @ 999 mls/hr 05/30/24 09:15 05/30/24 11:14 Ns IV 05/30/24 10:15 Infused .Q1H1M NELL Infusion Morphine Sulfate 4 mg 05/30/24 09:01 05/30/24 09:35 Morphine Sulfate 4 Mg/Ml Cartridge IVPUSH 05/30/24 09:02 4 mg ONCE ONE Administration Protocol Morphine Sulfate 4 mg 05/30/24 13:19 05/30/24 13:28 Morphine Sulfate 4 Mg/Ml Cartridge IVPUSH 05/30/24 13:20 4 mg ONCE ONE Administration Protocol Ondansetron HCl 4 mg 05/30/24 09:01 05/30/24 09:35 Ondansetron Hcl 4 Mg/2 Ml Vial IVPUSH 05/30/24 09:02 4 mg ONCE ONE Administration Critical Care Time Critical Care Time Critical Care Time: Yes Total Critical Care Time: 41 Attestation: Critical care time in the amount of 41 minutes has been provided to the patient in terms of direct patient care, frequent reevaluation on IV morphine, consultation with urology, review and interpretation of medical data and results, and management of potentially life-threatening conditions. This is all outside of any medical procedures. Discharge Plan Discharge Clinical Impression: Hydronephrosis of right kidney, Calculus of proximal right ureter, Fatty liver Patient Disposition: Admitted As Inpatient
[2024-05-30] MEDS: 0.9 % Sodium Chloride 1,000 ML 999 ML IV (09:31)
[2024-05-30 09:35] LABS: MANUAL DIFF FLAG NO
[2024-05-30] MEDS: ondansetron HCL 4 MG/2 ML VIAL IVPUSH ×2 (09:35→15:15)
[2024-05-30] MEDS: Morphine Sulfate 4 MG/ML CARTRIDGE IVPUSH ×2 (09:35→13:28)
[2024-05-30 09:36] LABS: Basophils Absolute Auto 0.1 X10*3/uL (0.0-0.2); Basophils Percent Auto 0.5 % (0-2); Eosinophils Absolute Auto 0.1 X10*3/uL (0.0-0.4); Eosinophils Percent Auto 0.7 % (0-4); Hematocrit 42.3 % (37.0-47.0); Hemoglobin 13.9 g/dl (12.0-16.0); Imm Gran Abs Auto 0.06 X10*3/uL (0.00-0.03); Imm Gran Pct Auto 0.6 % (0.0-0.4); Lymphocytes Absolute Auto 1.3 X10*3/uL (1.2-4.9); Lymphocytes Percent Auto 12.3 % (20-40); Mean Corpuscular HGB Conc 32.9 g/dl (31.0-35.0); Mean Corpuscular Hemoglobin 26.5 pg (27.0-33.0); Mean Corpuscular Volume 80.6 fL (80.0-98.0); Mean Platelet Volume 10.5 fL (9.4-12.3); Monocytes Absolute Auto 0.6 X10*3/uL (0.1-1.2); Monocytes Percent Auto 5.7 % (2-11); Neutrophils Absolute Auto 8.6 x10*3/uL (2.0-8.3); Neutrophils Percent Auto 80.2 % (45-73); Platelet Count 261 X10*3/uL (160-400); Red Blood Count 5.25 X10*6/uL (4.20-5.50); Red Cell Distribution Width 13.8 % (11.0-16.0); White Blood Count 10.7 X10*3/uL (4.8-10.8)
[2024-05-30 10:22] LABS: Alanine Aminotransferase 16 U/L (0-31); Albumin Level 4.1 g/dL (3.5-5.0); Alkaline Phosphatase 65 U/L (39-117); Anion Gap 15 (12-20); Aspartate Amino Transferase 31 U/L (5-31); Bilirubin Direct 0.2 mg/dL (0.0-0.5); Bilirubin Total 0.7 mg/dL (0.0-1.0); Blood Urea Nitrogen 6 mg/dL (9-16); Calcium 9.2 mg/dL (8.4-10.2); Carbon Dioxide 20 mmol/L (22-29); Chloride 111 mmol/L (96-108); Estimated Glomerular Filt Rate > 60; Glucose Random 110 mg/dL (60-115); HCG Quantitative < 2 mIU/mL; Lipase 25 U/L (8-78); Potassium 4.8 mmol/L (3.3-5.1); Sodium 141 mmol/L (135-145); Total Protein 8.3 g/dL (6.5-8.0)
[2024-05-30 11:56] LABS: Appearance Urine Cloudy; Color Urine Yellow; Glucose Urine UA Negative (Negative); Leukocyte Esterase Urine Small (1+) (Negative); Nitrite Urine Negative (Negative); PH 5.5 (5.0-9.0); Specific Gravity - Urine 1.015 (1.005-1.025); UMIC TRIGGER UACC YES; Urine Blood Large (3+) (Negative); Urine Ketones Trace mg/dL (Negative); Urine Protein Trace mg/dL (Neg-Trace)
[2024-05-30 11:57] LABS: UPreg QC Valid YES; Urine Pregnancy NEGATIVE (NEGATIVE)
[2024-05-30 12:04] LABS: Bacteria Urine None Seen (None Seen); Hyaline Casts Urine 0-2 /LPF (0-2); RBC Urine >20 /HPF (0-2); UACC Culture Trigger YES
--- NOTE | 2024-05-30 13:32 | PC.NURSE ---
patient resting quietly, respirations equal and unlabored, medicated per MAR for pain
--- NOTE | 2024-05-30 17:17 | PC.NURSE ---
patient to pacu via transport
--- NOTE | 2024-05-30 17:31 | HO.ANESPROP2 ---
[facility] Active Problems Active Problems: All Active Problems Fatty liver (Acute) Calculus of proximal right ureter (Acute) Hydronephrosis of right kidney (Acute) Chest pain (Acute) COVID-19 (Acute) Dyslipidemia (Acute) Physical exam (Acute) De Quervain's tenosynovitis, right (Acute) Numbness of right hand (Acute) Trigger finger of right thumb (Acute) Cervical radiculopathy (Acute) Right knee pain (Acute) Thoracic spine pain (Acute) Hearing loss, right (Acute) Obese (Acute) Vertigo (Acute) Iron deficiency anemia (Acute) Scoliosis (Acute) Nephrolithiasis (Acute) Asthma (Acute) Past Medical History Medical History Depression Right knee pain Thoracic spine pain Hearing loss, right Obese Vertigo Family History Family History Father Hypertension Mother No problems noted. Sister Thalassemia Asthma Maternal Grandmother Heart disease Daughter In good health Daughter In good health Maternal Uncle DVT (deep venous thrombosis) Sister Asthma Family history of problems with anesthesia: No Surgical History Surgical History History of extraction of renal calculus History of cholecystectomy History of appendectomy History of Problems with Anesthesia: No Social History Social History Housing: Apartment Alcohol intake: current Patient Tobacco Use Status: Never used Tobacco e-Cigarette/Vaping Use: Never Used Second Hand Smoke Exposure: No Advance Directives: No Advance Directives Information Provided: No service: No Current occupational status: employed Current occupation: [employer] Current occupational exposures/hazards: No Cognitive needs: No Hearing needs: No Vision needs: No Meds Allergies Allergy/AdvReac Type Severity Reaction Status Date / Time No Known Allergies Allergy Verified 05/30/24 17:30 Home Medications ?Medication ?Instructions ?Recorded ?Confirmed ?Last Taken ?Type norelgestromin 150 mcg-e.estradiol 1 patch topical QWEEK 02/19/21 03/17/24 Unknown History 35 mcg/24 hr weekly transderm patch (Davidlanrosy) Exam Height,Weight and Vital Signs: Height 4 ft 11 in Weight 68.3 kg Last Vital Signs Temp 99.0 F 05/30/24 17:25 Pulse 62 05/30/24 17:25 Resp 16 05/30/24 17:25 BP 139/83 05/30/24 17:25 Pulse Ox 98 05/30/24 17:25 O2 Del Method Room Air 05/30/24 17:25 Pertinent Lab Results Pertinent Lab Results: Laboratory Tests 05/30/24 05/30/24 09:28 11:39 WBC 10.7 RBC 5.25 Hgb 13.9 Hct 42.3 MCV 80.6 MCH 26.5 L MCHC 32.9 RDW 13.8 Plt Count 261 MPV 10.5 Immature Gran % (Auto) 0.6 H Neut % (Auto) 80.2 H Lymph % (Auto) 12.3 L [place] % (Auto) 5.7 Eos % (Auto) 0.7 Baso % (Auto) 0.5 Lymph # (Auto) 1.3 [place] # (Auto) 0.6 Eos # (Auto) 0.1 Baso # (Auto) 0.1 Abs Immat Gran (auto) 0.06 H Absolute Neuts (auto) 8.6 H Absolute Nucleated RBC 0.000 Nucleated RBC % (auto) 0.0 Sodium 141 Potassium 4.8 D Chloride 111 H Carbon Dioxide 20 L Anion Gap 15 BUN 6 L Creatinine 0.86 Estim Creat Clear Calc 73.0 Estimated GFR > 60 Random Glucose 110 Calcium 9.2 Total Bilirubin 0.7 Direct Bilirubin 0.2 AST 31 ALT 16 Alkaline Phosphatase 65 Total Protein 8.3 H Albumin 4.1 Lipase 25 Beta HCG, Quant < 2 Urine Color Yellow Urine Appearance Cloudy Urine pH 5.5 Ur Specific [place] 1.015 Urine Protein Trace Urine Glucose (UA) Negative Urine Ketones Trace Urine Blood Large (3+) H Urine Nitrite Negative Ur Leukocyte Esterase Small (1+) H Urine RBC >20 H Urine WBC 6-10 H Ur Squamous Epith Cells 6-10 Urine Bacteria None Seen Hyaline Casts 0-2 Urine Test NEGATIVE Airway Mallampati Class: III TM Dist: >3cm Neck ROM: Full Assessment and Plan Assessment Anesthesia Assessment: Anesthesia Plan Discussed and Chart Reviewed Final Anesthetic Review Family History of Problems with Anesthesia: No History of Problems with Anesthesia: No NPO: Yes ASA Class: II Final Preanesthetic Review: No Changes in Pt Med Stat, Meds/Allgs Chart Reviewed, Consent Obtained/Reviewed and Anes Risks/Benef Reviewed Patient Risk: Intermediate Procedure Risk: Low Anesthetic Plan Anesthetic Plan: GA Disposition: Standard PACU
--- NOTE | 2024-05-30 17:37 | PC.NURSE ---
Addendum entered by Raven Davenport 05/30/24 17:38: Site asymptomatic, flushed well. Original Note: Patient arrived to preop with one PRN angio, #20 right hand.
--- NOTE | 2024-05-30 18:02 | PM.UROCN ---
History of Present Illness Consult details Consult date: 05/30/24 Narrative: CC: Right proximal ureteric stone 38-year-old female Presentation with right flank pain that woke her from sleep early this morning Pain radiating to lower abdomen Associated nausea and vomiting Denies fever, chills, dysuria or hematuria Known prior nephrolithiasis that required procedure 2013 Laboratory show creatinine 0.86, WBC 10.7, calcium 9.2 Imaging - CT Mild-to moderate right hydronephrosis and proximal hydroureter are caused by a 0.3 x 0.4 x 0.6 cm stone at the L2-L3 level of the proximal ureter Recommend cystoscopy, right retrograde, right stent placement Review of Systems Constitutional: Constitutional: Denies chills and Denies fever(s) Cardiovascular: Cardiovascular: Reports no additional cardiovascular complaints and Denies syncope Respiratory: Respiratory: Denies cough Gastrointestinal: Gastrointestinal: Denies abdominal pain and Denies heartburn Genitourinary: Genitourinary: Reports as per HPI and Denies change in libido Neurologic: Denies syncope Psychiatric: Psychiatric: Denies change in libido Endocrine: Endocrine: Denies change in libido [facility] Past Medical History Medical History Depression Right knee pain Thoracic spine pain Hearing loss, right Obese Vertigo Family History Family History Father Hypertension Mother No problems noted. Sister Thalassemia Asthma Maternal Grandmother Heart disease Daughter In good health Daughter In good health Maternal Uncle DVT (deep venous thrombosis) Sister Asthma Surgical History Surgical History History of extraction of renal calculus History of cholecystectomy History of appendectomy Social History Social History Housing: Apartment Alcohol intake: current Alcohol intake frequency: does not drink Patient Tobacco Use Status: Never used Tobacco e-Cigarette/Vaping Use: Never Used Second Hand Smoke Exposure: No Use of substances other than those prescribed or required for medical reasons: No Are you DNR?: No Advance Directives: No Advance Directives Information Provided: No service: No Current occupational status: employed Current occupation: [employer] Current occupational exposures/hazards: No Cognitive needs: No Hearing needs: No Vision needs: No Meds Allergies Allergy/AdvReac Type Severity Reaction Status Date / Time No Known Allergies Allergy Verified 05/30/24 17:30 Active Medications: Current Medications Fentanyl (Fentanyl Citrate/Pf 100 Mcg/2 Ml Vial) 50 mcg IVPUSH Q5M PRN PRN Reason: Pain, Severe (Pain Scale 7-10) Stop: 05/30/24 23:33 Ondansetron HCl (Ondansetron Hcl 4 Mg/2 Ml Vial) 4 mg IVPUSH ONCE PRN PRN Reason: Nausea and Vomiting Stop: 05/30/24 23:33 Ondansetron HCl (Ondansetron Odt 4 Mg Tab.Rapdis) 4 mg TRANSLINGU ONCE PRN PRN Reason: Nausea and Vomiting Stop: 05/30/24 23:33 Home Medications ?Medication ?Instructions ?Recorded ?Confirmed ?Last Taken ?Type norelgestromin 150 mcg-e.estradiol 1 patch topical QWEEK 02/19/21 03/17/24 Unknown History 35 mcg/24 hr weekly transderm patch (Xulane) Physical Exam Vital Signs: Vital Signs: Last Vital Signs Temp 99.0 F 05/30/24 17:25 Pulse 62 05/30/24 17:25 Resp 16 05/30/24 17:25 BP 139/83 05/30/24 17:25 Pulse Ox 98 05/30/24 17:25 O2 Del Method Room Air 05/30/24 17:25 BMI result Body Mass Index 30.4 Const: General: cooperative, healthy appearing, comfortable and no acute distress Orientation/consciousness: patient oriented x3 HEENT: Face and sinus: Yes normal facial exam Mouth: moist mucous membranes Neck: Neck: Yes normal visual inspection, Yes full ROM and Yes trachea midline Chest: Chest palpation & inspection: normal inspection of the chest Resp: Effort & Inspection: normal respiratory effort, able to speak in complete sentences and no respiratory distress GI: Inspection: Yes normal to inspection Back/Spine/Pelvis: Cervical Spine: normal cervical lordosis Thoracic/Lumbar Spine: thoracic and lumbar spine normal to inspection Skin: General skin exam: no rashes or lesions noted Neuro: General: patient oriented x3, gait normal, tone normal and moves all extremities Extrem: General: Yes normal to inspection and Yes capillary refill normal Results Labs 05/30/24 09:28 05/30/24 09:28 Labs: Abnormal lab results 05/30/24 05/30/24 Range/Units 09:28 11:39 MCH 26.5 L (27.0-33.0) pg Immature Gran % (Auto) 0.6 H (0.0-0.4) % Neut % (Auto) 80.2 H (45-73) % Lymph % (Auto) 12.3 L (20-40) % Abs Immat Gran (auto) 0.06 H (0.00-0.03) X10*3/uL Absolute Neuts (auto) 8.6 H (2.0-8.3) x10*3/uL Chloride 111 H (96-108) mmol/L Carbon Dioxide 20 L (22-29) mmol/L BUN 6 L (9-16) mg/dL Total Protein 8.3 H (6.5-8.0) g/dL Urine Blood Large (3+) H (Negative) Ur Leukocyte Esterase Small (1+) H (Negative) Urine RBC >20 H (0-2) /HPF Urine WBC 6-10 H (0-5) /HPF Short CBC 05/30/24 Range/Units 09:28 WBC 10.7 (4.8-10.8) X10*3/uL Hgb 13.9 (12.0-16.0) g/dl Hct 42.3 (37.0-47.0) % Plt Count 261 (160-400) X10*3/uL BMP 05/30/24 09:28 Sodium 141 Potassium 4.8 D Chloride 111 H Carbon Dioxide 20 L BUN 6 L Creatinine 0.86 Calcium 9.2 Liver Function 05/30/24 Range/Units 09:28 Total Bilirubin 0.7 (0.0-1.0) mg/dL Direct Bilirubin 0.2 (0.0-0.5) mg/dL AST 31 (5-31) U/L ALT 16 (0-31) U/L Alkaline Phosphatase 65 (39-117) U/L Albumin 4.1 (3.5-5.0) g/dL Urine 05/30/24 Range/Units 11:39 Urine Color Yellow Urine Appearance Cloudy Urine pH 5.5 (5.0-9.0) Ur Specific [place] 1.015 (1.005-1.025) Urine Protein Trace (Neg-Trace) mg/dL Urine Glucose (UA) Negative (Negative) mg/dL Urine Test NEGATIVE (NEGATIVE) All other labs normal. Assessment and Plan (1) Hydronephrosis of right kidney: Status: Acute (2) Nephrolithiasis: Status: Acute Plan Risks, benefits and alternatives to therapy were discussed. These include but are not limited to infection, bleeding, damage to local organs and tissues, need for further interventions. Anesthetic risks regarding cardiac arrhythmia, blood clots, and potential mortality were discussed. The patient understands the typical recovery time and the outpatient nature of the procedure. After consideration of these risks the patient gives full informed consent and they wish to move ahead with the procedure. Cystoscopy, right retrograde, right stent placement Plan for ESWL at later date Will be able to discharge home following procedure Procedures Date of Service Date of Service: 05/30/24
--- NOTE | 2024-05-30 18:09 | MHC.SHP ---
Pre-Procedural Eval Section A - 24 Hr Update-Section A only Date of Service: 05/30/24 The patient is an INPATIENT: No Changes since office visit: No Cold of Flu in the past 2 weeks, No New Medical Problems, No Changes in Medication and No Patient answered all questions The patient has been examined within 24 hours of the surgical procedure. The History & Physical has been completed within 30 days and I have reviewed it.: Yes Section B - Complete if H&P > 30 days Chief Complaint: vomiting back and abd pain Allergies: Allergies Allergy/AdvReac Type Severity Reaction Status Date / Time No Known Allergies Allergy Verified 05/30/24 17:30 Plan Diagnosis/Plan: Unchanged (Cystoscopy, right retrograde, right stent placement) I have reviewed the history and physical and performed a pertinent physical examination on my patient. No changes have occurred unless specified. Time Spent With Patient Time: Total time managing care of this patient today ____ minutes.
--- NOTE | 2024-05-30 18:35 | W.PM.OPN ---
Operative Note Operative Note Date of Service: 05/30/24 Narrative: PreOperative Diagnosis: Right proximal UPJ stone Post Operative Diagnosis: Right proximal UPJ stone Procedure: Cystoscopy, right retrograde, right stent placement Surgeon: Dr Marc Lopez Anesthesia: Sedation Indications for procedure: Stone through emergency room Procedure: After informed consent was verified the patient was brought to the operating room and placed in a supine position. Anesthesia was administered per protocol. The patient was placed in modified dorsal lithotomy position and prepped and draped in a sterile fashion. A safety pause time-out was performed. Laterality of procedure and antibiotics were confirmed, appropriate imaging was available A 22 Citizen [place] cystoscope was introduced per urethra. No abnormality was noted of urethra or bladder. Both ureteric orifices were seen in a normal position. The right ureter was cannulated with an open ended catheter and a retrograde examination was performed. Obstructing stone seen . A Sensor guidewire was placed under fluoroscopy and a good coil was seen within the renal pelvis. Debris was expelled around sensor guidewire. A 6 [place] by 22 double J stent was advanced over the wire and up to the level of the renal pelvis under fluoroscopic and direct visualization. The stent was seen with appropriate coil within the renal pelvis and in the bladder after deployment. The patient tolerated the procedure well and was transferred in a stable condition to the recovery area. Pathology: Drains: Above
[2024-05-30] MEDS: Phenazopyridine HCL 100 MG TABLET PO (18:49)
[2024-05-30] MEDS: Ketorolac Tromethamine 15 MG/ML VIAL IVPUSH (18:49)
== END 2024-05-30 19:24 | disposition home or self-care (01) ==
LOC: HO.ED 13:26 → HO.SSS 14:16
PROVIDERS: Physician Assistant Medical; Emergency Provider Emergency Medicine; PCP Internal Medicine; Visit Provider Urology
PROC: (CPT 52332; principal; 2024-05-30 16:50)
DX: N13.2 Hydronephrosis with renal and ureteral calculous obstruction (principal); K76.0 Fatty (change of) liver, not elsewhere classified; E78.5 Hyperlipidemia, unspecified; D50.9 Iron deficiency anemia, unspecified; J45.909 Unspecified asthma, uncomplicated; Z79.899 Other long term (current) drug therapy
CPT/HCPCS: 52332; 36415; 74176; 80048; 80076; 81001; 81025; 83690; 84702; 85025; 87086; 96361; 96374; 96375; 96376; 99284; 99285; C1758; C1769; C2617; J1100; J1885; J1956; J2250; J2270; J2405; J2704; J3010; Q9967

== ENCOUNTER → 2024-05-30 14:16 | Outpatient (BNV) | payer OTHER, SELFPAY | PROVIDERS: Emergency Provider Emergency Medicine; PCP Internal Medicine; Visit Provider Urology | DX: N13.30 Unspecified hydronephrosis (principal); N20.0 Calculus of kidney; N20.1 Calculus of ureter | CPT/HCPCS: 52332; 74420; 99284 ==

== ENCOUNTER 2024-07-05 14:18 | Outpatient (AMB) | payer OTHER, SELFPAY ==
--- NOTE | 2024-07-05 14:13 | MHC.OFFVIS ---
Intake Visit Reasons: Discuss ESWL Intake Note: Patient is present for Discuss ESWL Urology Medication: NONE Antibiotic Allergy:NONE Blood Thinner:NONE End Stapler Required: No Allergies No Known Allergies Allergy (Verified 07/05/24 14:16) HPI Comments Details: Michelle is a pleasant female. She is a patient of Dr. Fuentes. She is seen for the following urologic conditions - nephrolithiasis Telemedicine Evaluation 15 min Consultation [employer] [place] Video attempted Plan ESWL with stent removal Right side Questions answered Nephrolithiasis May ER admission Presentation with right flank pain that woke her from sleep early this morning Pain radiating to lower abdomen Associated nausea and vomiting Denies fever, chills, dysuria or hematuria Known prior nephrolithiasis that required procedure 2013 Laboratory show creatinine 0.86, WBC 10.7, calcium 9.2 Imaging - CT Mild-to moderate right hydronephrosis and proximal hydroureter are caused by a 0.3 x 0.4 x 0.6 cm stone at the L2-L3 level of the proximal ureter [facility] Medical History Depression Right knee pain Thoracic spine pain Hearing loss, right Obese Vertigo Surgical History History of extraction of renal calculus History of cholecystectomy History of appendectomy Family History Father Hypertension Mother No problems noted. Sister Thalassemia Asthma Maternal Grandmother Heart disease Daughter In good health Daughter In good health Maternal Uncle DVT (deep venous thrombosis) Sister Asthma Social History Housing: Apartment Alcohol intake: current Alcohol intake frequency: does not drink Patient Tobacco Use Status: Never used Tobacco e-Cigarette/Vaping Use: Never Used Second Hand Smoke Exposure: No service: No Current occupational status: employed Current occupation: [employer] Current occupational exposures/hazards: No Cognitive needs: No Hearing needs: No Vision needs: No Review of Systems Const All systems reviewed & are unremarkable except as noted in HPI and below Reports no additional complaints Resp Reports no additional complaints GI Reports no additional complaints Reports as per HPI Musc Reports no additional complaints Physical Exam Telemedicine evaluation Appropriate responses Regular breathing rate and rhythm HEENT Head: Yes normal to inspection Ears: hearing grossly normal bilaterally Eyes General: appearance normal, both eyes and all related structures Neck Neck: Yes normal visual inspection Chest Chest palpation & inspection: normal inspection of the chest Resp Effort & Inspection: normal respiratory effort and able to speak in complete sentences Telehealth Telehealth Location of provider rendering services: practice address Location of patient: address on file Patient Identification confirmed using: Name, : Yes Telehealth method: voice only Patient verbally consented to treatment: Yes Patient verbally consented to billing insurance company: Yes Patient informed of any privacy concerns related to visit: Yes Assessment & Plan Assessment & Plan (1) Calculus of proximal right ureter: Code(s): N20.1 - Calculus of ureter Category: Medical Plan Extracorporeal Shock Wave Lithotripsy We discussed the nature of the decision and reasonable alternatives for performing the above surgery. Interventions include chemical dissolution, ESWL, ureteroscopy with laser lithotripsy and stent placement, PCNL. Options such as medical therapy were discussed. The relative uncertainties and benefits related to each alternate procedure were adequately discussed. General surgical risks including, but not limited to, pain, bleeding, infection, myocardial infarction, pulmonary embolus, deep vein thrombosis and cerebrovascular accident which may result in further hospitalization were discussed. Full disclosure of the procedure as well as all major risks, benefits and complications were discussed including but not limited to risks of bleeding, injury to the kidney with hematoma or siobhan-hematoma, failure to fragments stone, potential for ureteric obstruction from stone passage and need for secondary procedures. There is a small long-term risk of hypertension and a question marcelina of diabetes. Success rate of fragmentation and passage is approximately 70- 75%. This is compared to the risks and benefits for ureteroscopy which has a higher success rate but is a more invasive procedure. The success rate of the procedure was discussed. Success of the procedure in the short-term does not necessarily guarantee that long-term success will be maintained. Suitable follow up will need to be maintained. The patient showed understanding of the discussion as well as the typical recovery time, and the outpatient nature of this procedure. Opportunity was given for questions. Repeat-back protocol used to confirm understanding. They wish to proceed with right ESWL with cystoscopy and stent removal Patient Instructions: Imaging studies, laboratory and physical exam results were discussed and reviewed in detail. No major barriers to patient understanding were identified. An opportunity to ask questions regarding the treatment plan was provided. All questions were answered. The patient expressed understanding and agreement with the above treatment plan. The patient is aware they should contact our office by phone for worsening of their current condition or the appearance of new urologic symptoms. Compliance is encouraged with any medications and followup testing that is ordered. It is a privilege to participate in the urologic care of your patient. If you have any questions or concerns regarding treatment for the above conditions, or other urologic issues, please do not hesitate to contact me. The office telephone contact is [phone]. This note is constructed using voice recognition software. While every effort has been made to ensure accuracy regional commercial sales manager errors may have been included. Yours sincerely, Dr Marc Lopez MD, [facility] - Urology Providers of Expert, Compassionate Care for the Genitourinary System Coding Level of Care Code Tele Est Pt Level 4 (40766) Diagnoses Calculus of proximal right ureter N20.1
== END 2024-07-05 14:47 | disposition home or self-care (01) ==
LOC: HO.HUSH 14:18
PROVIDERS: PCP Internal Medicine; Visit Provider Urology
DX: N20.1 Calculus of ureter (principal)
CPT/HCPCS: 99214

== ENCOUNTER → 2024-07-05 14:18 | Outpatient (BNVA) | payer OTHER, SELFPAY | PROVIDERS: PCP Internal Medicine; Visit Provider Urology ==

== ENCOUNTER 2024-07-06 08:05 | Day surgery (SDC) | payer OTHER, SELFPAY ==
[2024-07-04 13:54] VITALS: BMI 30.3
--- NOTE | 2024-07-04 15:02 | HO.ANESPROP2 ---
HPI - Anesthesia Eval Consult details Narrative: 39yo F for Right Lithotripsy ESW s/p cysto, stent 05/2024 with GA-LMA 4 PMFSH Active Problems Active Problems: All Active Problems Fatty liver (Acute) Calculus of proximal right ureter (Acute) Chest pain (Acute) COVID-19 (Acute) Dyslipidemia (Acute) Physical exam (Acute) De Quervain's tenosynovitis, right (Acute) Numbness of right hand (Acute) Trigger finger of right thumb (Acute) Cervical radiculopathy (Acute) Right knee pain (Acute) Thoracic spine pain (Acute) Hearing loss, right (Acute) Obese (Acute) Vertigo (Acute) Iron deficiency anemia (Acute) Scoliosis (Acute) Asthma (Acute) Past Medical History Medical History Depression Right knee pain Thoracic spine pain Hearing loss, right Obese Vertigo Family History Family History Father Hypertension Mother No problems noted. Sister Thalassemia Asthma Maternal Grandmother Heart disease Daughter In good health Daughter In good health Maternal Uncle DVT (deep venous thrombosis) Sister Asthma Family history of problems with anesthesia: No Surgical History Surgical History Hx of tonsillectomy History of extraction of renal calculus History of cholecystectomy History of appendectomy History of Problems with Anesthesia: No Social History Social History Housing: Apartment Alcohol intake: current Alcohol intake frequency: does not drink Patient Tobacco Use Status: Never used Tobacco e-Cigarette/Vaping Use: Never Used Second Hand Smoke Exposure: No service: No Current occupational status: employed Current occupation: [employer] Current occupational exposures/hazards: No Cognitive needs: No Hearing needs: No Vision needs: No Meds Allergies Allergy/AdvReac Type Severity Reaction Status Date / Time No Known Allergies Allergy Verified 07/05/24 14:16 Home Medications ?Medication ?Instructions ?Recorded ?Confirmed ?Last Taken ?Type norelgestromin 150 mcg-e.estradiol 1 patch topical QWEEK 02/19/21 03/17/24 Unknown History 35 mcg/24 hr weekly transderm patch (Xulane) Exam Height,Weight and Vital Signs: Height 4 ft 11 in Weight 68 kg Pertinent Lab Results Pertinent Lab Results: Laboratory Tests 05/30/24 09:28 WBC 10.7 Hgb 13.9 Hct 42.3 Plt Count 261 Sodium 141 Potassium 4.8 D Chloride 111 H Carbon Dioxide 20 L BUN 6 L Creatinine 0.86 Narrative Narrative: EKG 03/2024 Vent. Rate : 068 BPM Atrial Rate : 068 BPM P-R Int : 164 ms QRS Dur : 078 ms QT Int : 422 ms P-R-T Axes : 060 009 019 degrees QTc Int : 448 ms Normal sinus rhythm Nonspecific T wave abnormality Abnormal ECG When compared with ECG of 17-JAN-2021 10:03, No significant change was found Assessment and Plan Assessment Anesthesia Assessment: Chart Reviewed Final Anesthetic Review Family History of Problems with Anesthesia: No History of Problems with Anesthesia: No
--- NOTE | ~2024-07-06 | XR_ITS ---
EXAMINATION: XR ABDOMEN KUB CLINICAL INDICATION: Kidney stone procedure today COMPARISON: None available. TECHNIQUE: AP view of the abdomen. FINDINGS: AP supine x-rays of the abdomen show nonspecific bowel gas pattern. No abnormal bowel dilatation is seen. A right ureteric double pigtail stent is present. No radiopaque renal calculi could be seen. Surgical clips are seen in medial right upper abdomen. A persistent collection of surgical implant is seen just medial to the right sacroiliac joint. XR/XR KUB IMPRESSION: 1. No radiopaque renal calculi are seen. 2. Interval placement of A right ureteric double pigtail stent is present. 3. Unchanged status post cholecystectomy and right medial pelvic metallic implants. Electronically signed by: Regis Rollins MD 07/06/2024 10:34 AM EDT
[2024-07-06 08:34] VITALS: BMI 29.9
[2024-07-06 08:36] LABS: UPreg QC Valid YES; Urine Pregnancy NEGATIVE (NEGATIVE)
[2024-07-06 08:41] VITALS: BP 127/80; PULSE 72; RESP 16; TEMP 36.4; O2SAT 97
[2024-07-06] MEDS: Lactated Ringers 1,000 ML 100 ML IVCONT (09:06)
[2024-07-06] MEDS: Lactated Ringers 1,000 ML 999 ML IV (09:10)
[2024-07-06] MEDS: levoFLOXacin 500 MG TABLET PO (09:18)
--- NOTE | 2024-07-06 10:22 | P.CONAN_ITS ---
[facility] Active Problems Active Problems: All Active Problems Fatty liver (Acute) Calculus of proximal right ureter (Acute) Chest pain (Acute) COVID-19 (Acute) Dyslipidemia (Acute) Physical exam (Acute) De Quervain's tenosynovitis, right (Acute) Numbness of right hand (Acute) Trigger finger of right thumb (Acute) Cervical radiculopathy (Acute) Iron deficiency anemia (Acute) Scoliosis (Acute) Asthma (Acute) Right knee pain (Acute) Thoracic spine pain (Acute) Hearing loss, right (Acute) Obese (Acute) Vertigo (Acute) Past Medical History Medical History Depression Right knee pain Thoracic spine pain Hearing loss, right Obese Vertigo Functional capacity: independent ambulation Patient : No Family History Family History Father Hypertension Mother No problems noted. Sister Thalassemia Asthma Maternal Grandmother Heart disease Daughter In good health Daughter In good health Maternal Uncle DVT (deep venous thrombosis) Sister Asthma Family history of problems with anesthesia: No Surgical History Surgical History Hx of tonsillectomy History of extraction of renal calculus History of cholecystectomy History of appendectomy History of Problems with Anesthesia: No Social History Social History Housing: Apartment Alcohol intake: current Alcohol intake frequency: does not drink Patient Tobacco Use Status: Never used Tobacco e-Cigarette/Vaping Use: Never Used Second Hand Smoke Exposure: No Use of substances other than those prescribed or required for medical reasons: No Are you DNR?: No Advance Directives: No Advance Directives Information Provided: Yes service: No Current occupational status: employed Current occupation: [employer] Current occupational exposures/hazards: No Cognitive needs: No Hearing needs: No Vision needs: No Meds Allergies Allergy/AdvReac Type Severity Reaction Status Date / Time No Known Allergies Allergy Verified 07/05/24 14:16 Active Medications: Current Medications Lactated Ringer's (Lr) 1,000 mls @ 100 mls/hr IVCONT .Q10H NELL Last Admin: 07/06/24 09:06 Dose: 100 mls/hr Home Medications ?Medication ?Instructions ?Recorded ?Confirmed ?Last Taken ?Type norelgestromin 150 mcg-e.estradiol 1 patch topical QWEEK 02/19/21 03/17/24 Unknown History 35 mcg/24 hr weekly transderm patch (Davidazeemrosy) Exam Height,Weight and Vital Signs: Height 4 ft 11 in Weight 67.132 kg Last Vital Signs Temp 97.5 F 07/06/24 08:41 Pulse 72 07/06/24 08:41 Resp 16 07/06/24 08:41 BP 127/80 07/06/24 08:41 Pulse Ox 97 07/06/24 08:41 O2 Del Method Room Air 07/06/24 08:41 Pertinent Lab Results Pertinent Lab Results: Laboratory Tests 07/06/24 08:27 Urine Test NEGATIVE Airway Mallampati Class: II TM Dist: >3cm Neck ROM: Full Heart: RRR Lungs: CTA Assessment and Plan Assessment Anesthesia Assessment: Anesthesia Plan Discussed and Chart Reviewed Final Anesthetic Review Family History of Problems with Anesthesia: No History of Problems with Anesthesia: No NPO: Yes ASA Class: II Final Preanesthetic Review: Meds/Allgs Chart Reviewed, Consent Obtained/Reviewed and Anes Risks/Benef Reviewed Patient Risk: Low Procedure Risk: Low Anesthetic Plan Anesthetic Plan: MAC: Disposition: Standard PACU
--- NOTE | 2024-07-06 11:10 | P.HPSUR_ITS ---
Pre-Procedural Eval Section A - 24 Hr Update-Section A only Date of Service: 07/06/24 The patient is an INPATIENT: No Changes since office visit: No Cold of Flu in the past 2 weeks, No New Medical Problems, No Changes in Medication and No Patient answered all questions The patient has been examined within 24 hours of the surgical procedure. The History & Physical has been completed within 30 days and I have reviewed it.: Yes Section B - Complete if H&P > 30 days Chief Complaint: Unspecified hydronephrosis Details of Present Illness: right renal stone with indwelling stent Relevant Family History (Specify if Yes): No Relevant Social History: None Present Medications: None Medical History: No relevant PMH History of Previous Operations: Relevant previous surgery/procedure and date(s) Allergies: Allergies Allergy/AdvReac Type Severity Reaction Status Date / Time No Known Allergies Allergy Verified 07/05/24 14:16 Review of Systems Sugical H&P ROS: Negative: Constitution, Cardiovascular, Respiratory, Neurological, Psychiatric, Hem-Onc, Allergic/Immunologic, Gastrointestinal, Genitourinary, Musculoskeletal, Integumentary, Endocrine and Eyes/Ears/Nose/ Throat Exam Surgical H&P Exam: Normal: HEENT, Normal: Heart, Normal: Lungs, Normal: Extremities, Normal: Abdomen, Normal: Skin and Normal: Neurological Plan Diagnosis/Plan: Unchanged (right eswl with cystoscopy and stent removal) I have reviewed the history and physical and performed a pertinent physical examination on my patient. No changes have occurred unless specified. Time Spent With Patient Time: Total time managing care of this patient today ____ minutes.
--- NOTE | 2024-07-06 11:41 | W.PM.OPN ---
Operative Note Operative Note Date of Service: 07/06/24 Narrative: PreOperative Diagnosis: right Ureteric stones with indwelling stent Post Operative Diagnosis: right Ureteric stones with indwelling stent Procedure: right Ureteric ESWL - cystoscopy with stent removal Surgeon: Dr Marc Lopez Anesthesia: mac/sedation Indications for procedure: The patient understands ESWL may be a staged procedure and subsequent intervention may be required based on imaging after ESWL. Quoted stone clearance rates for a solitary procedure are in the 70-80% range based primarily on stone location. They also understand there is a risk of bleeding to the ureter, infection, damage to adjacent organs, and stone migration following the procedure. - Imaging 6mm proximal ureteric stone by stent Procedure: After informed consent was verified the patient was brought to the operating room and placed in a supine position. Anesthesia was performed per protocol. Safety pause time-out was performed. Imaging was displayed in the room and laterality confirmed. Stone location confirmed with in room imaging through use of ultrasound and fluroscopy as required. Procedure optimization performed with 1 Liter of hydration using LR prior to initiation. ESWL was performed. The 1st 500 shocks were performed at 60 hertz. These were performed with increasing power. Once maximum power was reached the rate was increased to 120 hertz. A total of 3000 shocks were given. Targeted imaging with ultrasound/fluoroscopy showed stone smudging suggestive of disintegration. Cystoscopy performed with removal of stent emerging from right ureteric orifice The patient tolerated the procedure well and was transferred to the recovery area upon completion. Post procedure imaging will be organized. There was no evidence for flank discoloration.
[2024-07-06 12:10] VITALS: BP 110/59; PULSE 87; RESP 16; TEMP 36.6; O2SAT 95
[2024-07-06 12:25] VITALS: BP 111/73; PULSE 83; RESP 16; TEMP 36.6; O2SAT 96
--- NOTE | 2024-07-06 14:35 | HO.POSTANES ---
Post Anesthesia Evaluation Post Anesthesia Evaluation Date of Service: 07/06/24 Vital Signs: Vital Signs Temp Pulse Resp BP Pulse Ox O2 Del Method 07/06/24 12:25 97.9 F 83 16 111/73 96 Room Air 07/06/24 12:10 97.9 F 87 16 110/59 L 95 Room Air 07/06/24 08:41 97.5 F 72 16 127/80 97 Room Air Anesthesia: General LMA Mental Status: Awake Pain Control: Satisfactory Nausea/Vomiting: None Hydration: Adequate Anesthesia-Related Issues: No Anes. Related Issues
== END 2024-07-06 12:58 | disposition home or self-care (01) ==
PROVIDERS: Nurse Practitioner; PCP Internal Medicine; Visit Provider Urology
PROC: (CPT 50590; principal; 2024-07-06 10:10)
DX: N20.1 Calculus of ureter (principal); N13.30 Unspecified hydronephrosis; Z87.442 Personal history of urinary calculi; Z96.0 Presence of urogenital implants; D50.9 Iron deficiency anemia, unspecified; F32.A Depression, unspecified; E66.9 Obesity, unspecified; Z68.30 Body mass index [BMI] 30.0-30.9, adult; J45.909 Unspecified asthma, uncomplicated; Z79.899 Other long term (current) drug therapy; Z98.890 Other specified postprocedural states
CPT/HCPCS: 50590; 52310; 74018; 81025; J0131; J1940; J2250; J2704; J3010

== ENCOUNTER → 2024-07-06 08:05 | Outpatient (BNV) | payer OTHER, SELFPAY | PROVIDERS: PCP Internal Medicine; Visit Provider Urology | DX: N20.1 Calculus of ureter (principal); Z96.0 Presence of urogenital implants | CPT/HCPCS: 50590; 52310 ==

== ENCOUNTER → 2024-07-14 12:05 | Outpatient (RCR) | payer OTHER, SELFPAY ==
[2021-02-19 08:59] VITALS: BP 126/67; PULSE 68; RESP 12; TEMP 36.4; O2SAT 98; BMI 30.9
[2021-02-19 09:25] LABS: MANUAL DIFF FLAG NO
[2021-02-19 09:29] LABS: Basophils Percent Auto 0.6 % (0-2); Eosinophils Absolute Auto 0.1 X10*3/uL (0.0-0.4); Eosinophils Percent Auto 2.1 % (0-4); Hematocrit 39.1 % (37-47); Hemoglobin 12.4 g/dl (12.0-16.0); Imm Gran Abs Auto 0.02 X10*3/uL (0.00-0.03); Imm Gran Pct Auto 0.3 % (0.0-0.4); Immature Retic Fraction 7.4 % (3.0-15.9); Mean Corpuscular HGB Conc 31.7 g/dl (31.0-35.0); Mean Corpuscular Hemoglobin 24.3 pg (27.0-33.0); Mean Corpuscular Volume 76.7 fL (80-98); Mean Platelet Volume 10.2 fL (9.4-12.3); Monocytes Absolute Auto 0.5 X10*3/uL (0.1-1.2); Monocytes Percent Auto 7.8 % (2-11); Neutrophils Absolute Auto 3.7 X10*3/uL (2.0-8.3); Neutrophils Percent Auto 58.2 % (45-73); Platelet Count 247 X10*3/uL (160-400); Red Cell Distribution Width 23.1 % (11.0-16.0); Retic HGB Equivalent 31.9 pg (30.0-35.0); Reticulocyte Percent 1.4 % (0.5-1.8); Reticulocytes Absolute 0.069 X10*6/uL (0.026-0.095); White Blood Count 6.3 X10*3/uL (4.8-10.8)
--- NOTE | 2021-02-19 09:42 | MHC.HEMONCMA ---
Patient came in for a consult today for anemia, she states she went to the ER and they told her that she was anemic and prescribed her some iron pills and gave her fluids. She states she is doing ok today. Clinical summary was reviewed and updated. Patient had labs and will return in 3 months for a follow up.
--- NOTE | 2021-02-19 09:56 | PM.HEMONCCN ---
Subjective - Subjective Chief complaint: Anemia Patient: new to practice Consult date: 02/19/21 Primary Care Provider: Harriet Mayfield MD Medical Summary: Diagnosis: Iron deficiency anemia January 2021 HPI - Consult Narrative Reason for consult: Iron deficiency anemia Narrative: Michelle Harvey is a 35 year old female referred for management of iron deficiency anemia. Hemoglobin of 9.6 gram/dL in January 2021. At that time she was having heavy menstrual bleeding, she felt dizzy and went to the emergency room. She was started on oral iron supplementation. She was on intermittent iron supplementation in the past. She was not taking it for several years. She denies any hematochezia, melena, heartburn or reflux symptoms. She has had 5 children, her last child is 6 years old. There is thalassemia in her family but she was not told of it in the past. She has been feeling better since she started taking oral iron. She denies constipation or abdominal symptoms. There is no family history of gastrointestinal malignancy. Review of Systems - Constitutional Reports no additional constitutional complaints - Cardiovascular Reports no additional cardiovascular complaints - Respiratory Reports no additional respiratory complaints - Gastrointestinal Denies abdominal pain, Denies black, tarry stools, Denies bloating, Denies change in bowel habits, Denies heartburn Oncology Screenings - ECOG Performance Status ECOG Performance Status: 1 [facility] Medical History: Medical History (Last Updated 01/31/21 @ 09:36 by Harriet Mayfield MD) Hearing loss, right Obese Vertigo Family History: Family History (Last Updated 02/19/21 @ 09:03 by Homa Posada) Father Hypertension Mother No problems noted. Sister Thalassemia Asthma Maternal Grandmother Heart disease Daughter In good health Daughter In good health Maternal Uncle DVT (deep venous thrombosis) Sister Asthma Surgical History: Surgical History (Last Reviewed 01/31/21 @ 09:22 by Harriet Mayfield MD) History of appendectomy History of cholecystectomy History of extraction of renal calculus Social History: Social History (Last Updated 02/19/21 @ 09:03 by Homa Posada) Alcohol History: Alcohol intake: former Alcohol History Details: Alcohol intake frequency: does not drink Tobacco History: Smoking Status: Never smoker Substance Use History: Use of substances other than those prescribed or required for medical reasons: No Smoking status: Never smoker Home Medications and Allergies Home Medications Medication Instructions Recorded Confirmed Type norelgestromin-ethin.estradiol 1 patch TOPICAL QWEEK 02/19/21 02/19/21 History [Xulane] Allergies Allergy/AdvReac Type Severity Reaction Status Date / Time No Known Allergies Allergy Verified 01/31/21 09:17 Physical Exam Vital signs: Vital Signs Temp 97.6 F 02/19/21 08:59 Pulse 68 02/19/21 08:59 Resp 12 02/19/21 08:59 BP 126/67 02/19/21 08:59 Pulse Ox 98 02/19/21 08:59 Intake & Output 02/18/21 02/19/21 02/19/21 18:59 06:59 18:59 Other: Weight 69.6 kg Weight in Grams [id number] Weight 69.6 kg - Constitutional Present: no acute distress - Routine HEENT Exam Head: Present: normal inspection Eye: Present: normal appearance - Routine Neck Exam Absent: lymphadenopathy - Routine Respiratory Exam Present: CTAB - Routine Cardiovascular Exam Cardiovascular: Present: S1, S2 - Routine Extremities Exam Present: pulses intact - Routine Skin Exam Present: intact. Absent: erythema Hem/Onc Consult Result - Labs CBC & Chem 7: 02/19/21 09:20 Labs: Short CBC 02/19/21 Range/Units 09:20 WBC 6.3 (4.8-10.8) X10*3/uL Hgb 12.4 D (12.0-16.0) g/dl Hct 39.1 (37-47) % Plt Count 247 (160-400) X10*3/uL Assessment and Plan (1) Iron deficiency anemia Status: Acute Qualifiers: Iron deficiency anemia type: unspecified iron deficiency Qualified Code(s): D50.9 - Iron deficiency anemia, unspecified 1. This is a 35-year-old woman with iron deficiency anemia related to menorrhagia. She has been taking oral iron supplementation with good response. Her anemia has resolved. She appears to have iron deficiency as her MCV is still low and RDW is elevated. I have advised her to increase oral iron supplementation to twice daily with vitamin-C to help absorption. She does not need parenteral iron therapy. There is family history of thalassemia, probably thalassemia trait without significant anemia. Rest of hematological workup is pending. I thank you very much for this consultation. Follow-up in 3 months.
[2021-02-19 10:04] LABS: Iron 95 mcg/dL (30-160); Percent Iron Saturation 23 % (15-50); Total Iron Binding Capacity 420 mcg/dL (228-428); Unsaturated Iron Binding 325 ug/dL
[2021-02-19 10:39] LABS: Folate 13.7 ng/mL (> or = 4.0); Vitamin B12 313 pg/mL (200-900)
== END | disposition home or self-care (01) ==
LOC: HO.ONC 02-19 08:43
PROVIDERS: PCP Internal Medicine; Visit Provider Internal Medicine
DX: D50.0 Iron deficiency anemia secondary to blood loss (chronic) (principal); N92.0 Excessive and frequent menstruation with regular cycle; Z79.899 Other long term (current) drug therapy
CPT/HCPCS: 36415; 82607; 82746; 83540; 85025; 85045; 99202

== ENCOUNTER 2024-08-02 10:33 | Outpatient (REF) | payer OTHER, SELFPAY ==
[2024-08-02 11:24] LABS: MANUAL DIFF FLAG NO
[2024-08-02 12:03] LABS: Basophils Absolute Auto 0.1 X10*3/uL (0.0-0.2); Basophils Percent Auto 0.6 % (0-2); Eosinophils Absolute Auto 0.3 X10*3/uL (0.0-0.4); Eosinophils Percent Auto 3.7 % (0-4); Hematocrit 40.5 % (37.0-47.0); Imm Gran Abs Auto 0.05 X10*3/uL (0.00-0.03); Imm Gran Pct Auto 0.6 % (0.0-0.4); Lymphocytes Percent Auto 22.8 % (20-40); Mean Corpuscular HGB Conc 32.1 g/dl (31.0-35.0); Mean Corpuscular Hemoglobin 25.4 pg (27.0-33.0); Mean Corpuscular Volume 79.1 fL (80.0-98.0); Mean Platelet Volume 9.9 fL (9.4-12.3); Monocytes Absolute Auto 0.6 X10*3/uL (0.1-1.2); Monocytes Percent Auto 6.4 % (2-11); Neutrophils Absolute Auto 5.7 x10*3/uL (2.0-8.3); Neutrophils Percent Auto 65.9 % (45-73); Platelet Count 307 X10*3/uL (160-400); Red Blood Count 5.12 X10*6/uL (4.20-5.50); Red Cell Distribution Width 13.5 % (11.0-16.0); White Blood Count 8.6 X10*3/uL (4.8-10.8)
[2024-08-02 12:39] LABS: Cholesterol 263 mg/dL (<200); HDL Cholesterol 54 mg/dL (>40); Iron 55 mcg/dL (30-160); LDL Cholesterol Calculated 166 mg/dL (<100); Percent Iron Saturation 15 % (15-50); Total Iron Binding Capacity 365 mcg/dL (228-428); Triglycerides 215 mg/dL (<150); Unsaturated Iron Binding 310 ug/dL
== END 2024-08-02 10:34 | disposition home or self-care (01) ==
LOC: HO.LAB 10:33
PROVIDERS: PCP Internal Medicine; Visit Provider Internal Medicine
DX: E78.5 Hyperlipidemia, unspecified (principal); D50.9 Iron deficiency anemia, unspecified; J45.909 Unspecified asthma, uncomplicated
CPT/HCPCS: 36415; 80061; 83540; 85025; 99212

== ENCOUNTER 2024-08-02 10:33 | Outpatient (AMB) | payer OTHER, SELFPAY ==
[2024-08-02 10:43] VITALS: BP 110/70; BMI 29.3
--- NOTE | 2024-08-02 10:43 | MHC.PC.OV ---
Vital Signs 08/02/24 10:43 Height 4 ft 11 in Weight 145 lb BMI 29.3 BP 110/70 Blood Pressure Location Lt brachial Position Sitting Intake Visit Reasons: anemia, asthma Intake Note: Patient here for a follow up Anemia, Asthma Engraver Steel Plate Required: No Accompanied by: Self / Same As Patient Allergies No Known Allergies Allergy (Verified 08/02/24 10:51) Medication List - Last Reconciled 08/02/24 by Harriet Mayfield MD albuterol sulfate 90 mcg/actuation 2 puffs inhalation Q6H PRN 30 days cetirizine (All Day Allergy (cetirizine)) 10 mg PO DAILY PRN 90 days cyclobenzaprine 10 mg PO TID PRN ferrous sulfate 325 mg PO DAILY 90 days hydrocortisone 1% (Anti-Itch (hydrocortisone)) 1 appl topical TID PRN 2 weeks meclizine 25 mg PO TID PRN 30 days naproxen 500 mg PO BID PRN 7 days norelgestromin-ethin.estradiol 150-35 mcg/24 hr (Xulane) 1 patch topical QWEEK Ventolin HFA 90 mcg/actuation (albuterol sulfate) 2 puffs inhalation Q6H PRN 30 days NS Tobacco use date assessed: 12/09/23 Dental Screening Dental Screen Date: 08/02/24 Did you have a dental visit in the last 12 months?: No Did you have a dental problem in the last 6 months where you did not have access to dental care?: No Was dental information given to patient?: Patient has dentist HPI HPI Comments History of Present Illness Details This is a 39-year-old female with iron-deficiency anemia and dyslipidemia that comes today for follow-up on her conditions. Labs will be ordered today. She was advise low-cholesterol diet. Denies any chest pain or shortness on breath. [facility] Medical History Depression Right knee pain Thoracic spine pain Hearing loss, right Obese Vertigo Surgical History Hx of tonsillectomy History of extraction of renal calculus History of cholecystectomy History of appendectomy Family History Father Hypertension Mother No problems noted. Sister Thalassemia Asthma Maternal Grandmother Heart disease Daughter In good health Daughter In good health Maternal Uncle DVT (deep venous thrombosis) Sister Asthma Social History (Updated 08/02/24 @ 10:54 by Harriet Mayfield MD) Housing: Apartment Alcohol intake: never Patient Tobacco Use Status: Never used Tobacco e-Cigarette/Vaping Use: Never Used Second Hand Smoke Exposure: No service: No Current occupational status: employed Current occupation: [employer] Current occupational exposures/hazards: No Cognitive needs: No Hearing needs: No Vision needs: No Questionnaire Thrive Questionnaire Date Thrive assessed: 12/09/23 Are you currently unemployed and looking for a job?: No LEANNA-7 AMB Questionnaire LEANNA-7 Date LEANNA - 7 assessed: 12/09/23 Source: Developed by Drs. Raul Lora, Pearl Franz, Mehran Vazquez and colleagues, with an educational denise from [employer]. Review of Systems Const All systems reviewed & are unremarkable except as noted in HPI and below Card Denies chest pain at rest, Denies chest pain with activity, Denies edema, Denies irregular heart rhythm, Denies claudication, Denies dyspnea, Denies dyspnea on exertion, Denies orthopnea, Denies paroxysmal nocturnal dyspnea and Denies slow heart rate Resp Denies cough, Denies dyspnea and Denies dyspnea on exertion GI Denies abdominal pain, Denies change in bowel habits, Denies excessive flatus, Denies nausea and Denies vomiting Physical exam (Primary Care) Vital Signs: Last Vital Signs BP 110/70 08/02/24 10:43 BMI result Body Mass Index 29.3 Tobacco/Smoking Status: Tobacco use Status Tobacco use date assessed 12/09/23 08/02/24 10:47 Patient Tobacco Use Status Never used Tobacco 08/02/24 10:47 e-Cigarette/Vaping Use Never Used 08/02/24 10:47 Thrive Assessment: Date of Thrive Assessment Date Thrive assessed 12/09/23 08/02/24 10:47 Resp Effort & Inspection: normal respiratory effort Auscultation: clear to auscultation bilaterally Cardio Jugular venous distension: no JVD Rate: regular rate Rhythm: regular rhythm Heart sounds: S1 normal heart sound present and S2 normal heart sound present Extrem General: Yes full ROM Assessment and Plan Assessment & Plan (1) Dyslipidemia: Code(s): E78.5 - Hyperlipidemia, unspecified Plan: Start low-cholesterol diet. Repeat lipid panel. (2) Iron deficiency anemia: Code(s): D50.9 - Iron deficiency anemia, unspecified Qualifiers: Iron deficiency anemia type: unspecified iron deficiency Qualified Code(s): D50.9 - Iron deficiency anemia, unspecified Plan: Repeat CBC. Orders: Orders Complete Blood Count Auto Diff Today D64.9 - Anemia, unspecified IRON PROFILE Today D64.9 - Anemia, unspecified Lipid Panel Today E78.5 - Hyperlipidemia, unspecified Coding Level of Care Code Est Pt Level 3 (75810) Complex EM visit Add On G2211 Diagnoses Dyslipidemia E78.5 Iron deficiency anemia, unspecified iron deficiency anemia type D50.9 Iron deficiency anemia type: unspecified iron deficiency Time Spent (min) 19
== END 2024-08-02 10:57 | disposition home or self-care (01) ==
PROVIDERS: PCP Internal Medicine; Visit Provider Internal Medicine
DX: E78.5 Hyperlipidemia, unspecified (principal); D50.9 Iron deficiency anemia, unspecified

== ENCOUNTER 2024-08-10 13:02 | Outpatient (REF) | payer OTHER, SELFPAY | END 2024-08-10 13:03 | disposition home or self-care (01) | LOC: HO.US 13:02 | PROVIDERS: PCP Internal Medicine; Visit Provider Urology | DX: Z13.89 Encounter for screening for other disorder (principal) ==

== ENCOUNTER 2024-08-11 14:09 | Outpatient (REF) | payer OTHER, SELFPAY ==
--- NOTE | ~2024-08-11 | US_ITS ---
EXAMINATION: US RETROPERITONEAL LIMITED (RENAL ONLY) CLINICAL INFORMATION: Calculus of ureter. COMPARISON: X-ray KUB 07/06/2024. CT abdomen and pelvis 05/30/2024. TECHNIQUE: Real-time imaging of the kidneys. FINDINGS: RIGHT KIDNEY: 9.8 x 4.2 x 4.1 cm (SAG x AP x TRV). The kidney is normal in size, contour, and echogenicity. Renal cortical thickness is normal. There is a small echogenic focus in the mid lateral kidney of uncertain significance, either representing a nonobstructing calculus or a vascular interface. No intrarenal calculi seen on the 05/30/2024 CT scan. No focal parenchymal lesions. No hydronephrosis. LEFT KIDNEY: 9.2 x 3.8 x 5.4 cm (SAG x AP x TRV). The kidney is normal in size, contour, and echogenicity. Renal cortical thickness is normal. No calculi or focal parenchymal lesions. No hydronephrosis. US/US renal BI IMPRESSION: Question of a small nonobstructing right renal calculus. Electronically signed by: Yong Wilkerson MD 10/19/2024 11:38 PM EST
== END 2024-08-11 14:10 | disposition home or self-care (01) ==
LOC: HO.US 14:09
PROVIDERS: PCP Internal Medicine; Visit Provider Urology
DX: N20.1 Calculus of ureter (principal)
CPT/HCPCS: 76775

== ENCOUNTER 2024-09-08 13:17 | Outpatient (AMB) | payer OTHER, SELFPAY ==
--- NOTE | 2024-09-08 13:29 | A.OFFVIS_ITS ---
Intake Visit Reasons: US follow up- post op(set) Intake Note: Patient is present for Post Op Ultrasound follow up Urology Med: None Antibiotic Allergy: None Blood Thinner: None Logging Tractor Operator Required: No Accompanied by: Self / Same As Patient Allergies No Known Allergies Allergy (Verified 09/08/24 13:31) HPI Comments Details: Michelle is a pleasant female. She is a patient of Dr. Fuentes. 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 Nephrolithiasis May ER admission Family history stones Known prior nephrolithiasis that required procedure 2013 Laboratory show creatinine 0.86, WBC 10.7, calcium 9.2 Imaging - CT Mild-to moderate right hydronephrosis and proximal hydroureter are caused by a 0.3 x 0.4 x 0.6 cm stone at the L2-L3 level of the proximal ureter Intervention - right [facility]L [facility] Medical History Depression Right knee pain Thoracic spine pain Hearing loss, right Obese Vertigo Surgical History Hx of tonsillectomy History of extraction of renal calculus History of cholecystectomy History of appendectomy Family History Father Hypertension Mother No problems noted. Sister Thalassemia Asthma Maternal Grandmother Heart disease Daughter In good health Daughter In good health Maternal Uncle DVT (deep venous thrombosis) Sister Asthma Social History (Updated 08/02/24 @ 10:54 by Harriet Mayfield MD) Housing: Apartment Alcohol intake: never Patient Tobacco Use Status: Never used Tobacco e-Cigarette/Vaping Use: Never Used Second Hand Smoke Exposure: No service: No Current occupational status: employed Current occupation: [employer] Current occupational exposures/hazards: No Cognitive needs: No Hearing needs: No Vision needs: No Review of Systems Const Denies chills and Denies fever(s) Card Reports no additional complaints and Denies syncope Resp Denies cough GI Denies abdominal pain and Denies heartburn Reports as per HPI and Denies change in libido Neuro Denies syncope Psych Denies change in libido Endo Denies change in libido Physical Exam Const General: cooperative, healthy appearing, comfortable and no acute distress Orientation/consciousness: patient oriented x3 HEENT Face and sinus: Yes normal facial exam Mouth: moist mucous membranes Neck Neck: Yes normal visual inspection, Yes full ROM and Yes trachea midline Chest Chest palpation & inspection: normal inspection of the chest Resp Effort & Inspection: normal respiratory effort, able to speak in complete sentences and no respiratory distress GI Inspection: Yes normal to inspection Back/Spine/Pelvis Cervical Spine: normal cervical lordosis Thoracic/Lumbar Spine: thoracic and lumbar spine normal to inspection Skin General skin exam: no rashes or lesions noted Neuro General: patient oriented x3, gait normal, tone normal and moves all extremities Extrem General: Yes normal to inspection and Yes capillary refill normal Assessment & Plan Assessment & Plan (1) Calculus of proximal right ureter: Code(s): N20.1 - Calculus of ureter Category: Medical Plan Six-month follow-up renal ultrasound Orders: Orders Surgical Today N20.0 - Calculus of kidney, N20.1 - Calculus of ureter Patient Instructions: Imaging studies, laboratory and physical exam results were discussed and reviewed in detail. No major barriers to patient understanding were identified. An opportunity to ask questions regarding the treatment plan was provided. All questions were answered. The patient expressed understanding and agreement with the above treatment plan. The patient is aware they should contact our office by phone for worsening of their current condition or the appearance of new urologic symptoms. Compliance is encouraged with any medications and followup testing that is ordered. It is a privilege to participate in the urologic care of your patient. If you have any questions or concerns regarding treatment for the above conditions, or other urologic issues, please do not hesitate to contact me. The office telephone contact is [phone]. This note is constructed using voice recognition software. While every effort has been made to ensure accuracy mobile ui/ux designer errors may have been included. Yours sincerely, Dr Marc Lopez MD, [facility] - Urology Providers of Expert, Compassionate Care for the Genitourinary System Coding Level of Care Code Est Pt Level 3 (19475) Diagnoses Calculus of proximal right ureter N20.1
== END 2024-09-08 13:45 | disposition home or self-care (01) ==
PROVIDERS: PCP Internal Medicine; Visit Provider Urology
DX: N20.1 Calculus of ureter (principal)
CPT/HCPCS: 99024

== ENCOUNTER 2024-09-08 13:17 | Outpatient (REF) | payer OTHER, SELFPAY ==
[2024-09-14 18:08] LABS: Stone Source KIDNEY STONE
== END 2024-09-08 13:18 | disposition home or self-care (01) ==
LOC: HO.LAB 13:17
PROVIDERS: PCP Internal Medicine; Visit Provider Urology
DX: N20.0 Calculus of kidney (principal); N20.1 Calculus of ureter
CPT/HCPCS: 82365; 88300; 99212

== ENCOUNTER 2025-01-13 07:51 | Outpatient (REF) | payer OTHER, SELFPAY ==
[2025-01-15 23:43] LABS: TS Negative Control Passed; TS Panel A 0; TS Panel B 0; TS Positive Control Passed; TSpotTB Negative (Negative)
== END 2025-01-13 07:52 | disposition home or self-care (01) ==
LOC: HO.LAB 07:51
PROVIDERS: PCP Internal Medicine; Visit Provider Internal Medicine
DX: Z11.1 Encounter for screening for respiratory tuberculosis (principal)
CPT/HCPCS: 36415; 86481

== ENCOUNTER 2025-03-27 09:22 | Outpatient (AMB) | payer OTHER, SELFPAY ==
--- NOTE | 2025-03-27 09:23 | A.OFFPC_ITS ---
Vital Signs 03/27/25 09:24 Height 4 ft 11 in Weight 150 lb BMI 30.3 BP 108/70 Blood Pressure Location Lt brachial Position Sitting Intake Visit Reasons: annual exam Intake Note: Patient here for a physical exam Title Insurance Agent Required: No Accompanied by: Self / Same As Patient Allergies No Known Allergies Allergy (Verified 03/27/25 09:33) Medication List - Last Reconciled 03/27/25 by Harriet Mayfield MD albuterol sulfate 90 mcg/actuation 2 puffs inhalation Q6H PRN 30 days cetirizine (All Day Allergy (cetirizine)) 10 mg PO DAILY PRN 90 days cyclobenzaprine 10 mg PO TID PRN ferrous sulfate 325 mg PO DAILY 90 days hydrocortisone 1% (Anti-Itch (hydrocortisone)) 1 appl topical TID PRN 2 weeks meclizine 25 mg PO TID PRN 30 days naproxen 500 mg PO BID PRN 7 days norelgestromin-ethin.estradiol 150-35 mcg/24 hr (Xulane) 1 patch topical QWEEK tobramycin 0.3% 1 drp ophthalmic (eye) Q4H 7 days Ventolin HFA 90 mcg/actuation (albuterol sulfate) 2 puffs inhalation Q6H PRN 30 days NS Tobacco use date assessed: 03/27/25 Dental Screening Dental Screen Date: 03/27/25 Did you have a dental visit in the last 12 months?: No Did you have a dental problem in the last 6 months where you did not have access to dental care?: No Was dental information given to patient?: Patient has dentist HPI HPI Comments History of Present Illness Details The patient is a 39-year-old female presenting for an annual wellness exam. She has undergone a mammogram in the previous year and requires an update on her tetanus vaccination as it was last received in 2013. The patient manages her allergies with cetirizine and uses naproxen and meclizine for episodes of dizziness. Currently, she is using a hormonal patch prescribed by her residential care officer. Her family history is notable for paternal hypertension. She has a history of appendectomy, cholecystectomy, and tonsillectomy. The patient actively follows up with urology for nephrolithiasis. She has denied any recent symptoms of chest pain, dyspnea, fever, or cough. She neither smokes nor consume s alcohol and reports no issues with depression or anxiety. - Mammogram was conducted last year; con joséue annual screenings. - Tetanus vaccination is due this year; last received in 2013. - Laboratory workup for cholesterol, glu cose, kidney and liver function recommended. - Comprehensive urology follow-up for ne phrolithiasis management. [facility] Medical History Depression Right knee pain Thoracic spine pain Hearing loss, right Obese Vertigo Surgical History Hx of tonsillectomy History of extraction of renal calculus History of cholecystectomy History of appendectomy Family History Father Hypertension Mother No problems noted. Sister Thalassemia Asthma Maternal Grandmother Heart disease Daughter In good health Daughter In good health Maternal Uncle DVT (deep venous thrombosis) Sister Asthma Social History Housing: Apartment Alcohol intake: never Patient Tobacco Use Status: Never used Tobacco e-Cigarette/Vaping Use: Never Used Second Hand Smoke Exposure: No service: No Current occupational status: employed Current occupation: [employer] Current occupational exposures/hazards: No Cognitive needs: No Hearing needs: No Vision needs: No Questionnaire PHQ-9 Over the last 2 weeks, how often have you been bothered by any of the following problems? 1. Little interest or pleasure in doing things: not at all 2. Feeling down, depressed, or hopeless: not at all 3. Trouble falling or staying asleep, or sleeping too much: not at all 4. Feeling tired or having little energy: not at all 5. Poor appetite or overeating: not at all 6. Feeling bad about yourself - or that you are a failure or have let yourself or your family down: not at all 7. Trouble concentrating on things, such as reading the newspaper or watching television: not at all 8. Moving or speaking so slowly that other people could have noticed. Or the opposite - being so fidgety or restless that you have been moving around a lot more than usual: not at all 9. Thoughts that you would be better off or of hurting yourself in some way: not at all Total score: 0 Depression Screening Interpretation: Negative Depression Screening Done: Yes 40448 - PHQ-9 Billing: Yes Source: Developed by Drs. Raul Lora, Pearl Franz, Mehran Vazquez and colleagues, with an educational denise from [employer]. Thrive Questionnaire Date Thrive assessed: 03/20/25 I am a: Patient What is your living situation today?: I have a steady place to live Within the past 12 months, did the food you bought not last and you didn't have the money to get more?: I choose not to answer this question Within the past 12 months, did you worry whether your food would run out before you got money to buy more?: I choose not to answer this question Do you have trouble paying for medicines?: No Do you have trouble getting transportation to medical appointments?: No Do you have trouble paying your heating and electricity bill?: No Do you have trouble taking care of your child, family member or friend?: No Do you have trouble with day-to-day activities such as bathing, preparing meals, shopping, managing finances, etc.?: No Are you currently unemployed and looking for a job?: I choose not to answer this question Are you interested in more education?: No Please select the resources that you would like help with: None Currently or been in a relationship where the following occur: No concerns reported THRIVE Score: 0 AUDIT C Alcohol Use Questionnaire (AUDIT-C) 1. How often do you have a drink containing alcohol?: Never Total Score: 0 Score Reviewed/Action Taken: No LEANNA-7 AMB Questionnaire LEANNA-7 Date LEANNA - 7 assessed: 03/27/25 Feeling nervous, anxious, or on edge: 0 = Not at all Not being able to stop or control worryin = Several days Worrying too much about different things: 1 = Several days Trouble relaxin = Several days Being so restless that it is hard to sit still: 0 = Not at all Becoming easily annoyed or irritable: 1 = Several days Feeling afraid as if something awful might happen: 0 = Not at all Total LEANNA-7 score (0-4 normal; 5-9 mild; 10-14 moderate; 15-21 severe): 4 Source: Developed by Drs. Raul Lora, Pearl Franz, Mehran Vazquez and colleagues, with an educational denise from [employer]. LEANNA-7 Assessment Billing LEANNA-7 Assessment Tool: LEANNA-7 Assessment 04889 Review of Systems Const All systems reviewed & are unremarkable except as noted in HPI and below Card Denies chest pain at rest, Denies chest pain with activity, Denies edema, Denies irregular heart rhythm, Denies claudication, Denies dyspnea, Denies dyspnea on exertion, Denies orthopnea, Denies paroxysmal nocturnal dyspnea and Denies slow heart rate Resp Denies cough, Denies dyspnea and Denies dyspnea on exertion GI Denies abdominal pain, Denies change in bowel habits, Denies excessive flatus, Denies nausea and Denies vomiting Denies urinary incontinence, Denies urinary hesitancy and Denies urinary urgency Musc Denies atrophy, Denies deformity and Denies limited range of motion Skin/Breast Denies bleeding lesions, Denies changing lesions and Denies rash Physical exam (Primary Care) Vital Signs: Last Vital Signs BP 108/70 03/27/25 09:24 BMI result Body Mass Index 30.3 Tobacco/Smoking Status: Tobacco use Status Tobacco use date assessed 03/27/25 03/27/25 09:30 Patient Tobacco Use Status Never used Tobacco 03/27/25 09:30 e-Cigarette/Vaping Use Never Used 03/27/25 09:30 PHQ-9: PHQ-9 Score PHQ-9: Total score 0 03/27/25 09:36 Depression Screening Interpretation: Negative Thrive Assessment: Date of Thrive Assessment Date Thrive assessed 03/20/25 03/27/25 09:30 Currently or been in a relationship where the following occur: No concerns reported [facility] Head: Yes normal to inspection, Yes normocephalic and Yes atraumatic Ears: external ears normal Eyes General: appearance normal, both eyes and all related structures Eyelids: Yes eyelids normal Conjunctivae: conjunctivae normal Neck Neck: Yes normal visual inspection and Yes supple Resp Effort & Inspection: normal respiratory effort Auscultation: clear to auscultation bilaterally Cardio Jugular venous distension: no JVD Rate: regular rate Rhythm: regular rhythm Heart sounds: S1 normal heart sound present and S2 normal heart sound present GI Inspection: Yes normal to inspection Palpation (GI): Soft to palpation and nontender Auscultation: normal bowel sounds Skin General skin exam: no rashes or lesions noted Neuro General: no focal motor deficits Extrem General: Yes full ROM Psych Appearance: grossly normal Immunizations Boostrix Tdap 2.5 Lf unit-8 mcg-5 Lf/0.5 mL intramuscular syringe Performing Provider: Harriet Mayfield MD [facility] [place] Administered by: GARRY Hunt on 03/27/25 09:45 Dose Route Admin Location Dispensed Lot Number Expiration Date NDC Signalman 0.5 mL IM Left Deltoid 0.5 mL [id number] 07/11/27 56917-806-26 What the Trend VIS Given Date VIS Provided VIS Publication Date 03/27/25 Single Vaccine 24 Eligibility Eligibility Date Funding Source Not [facility] Eligible 03/27/25 Private Coding Level of Care Code Est Pt Prev Care 40-64y(35583) Diagnoses Physical exam Z00.00 Additional Codes PHQ-9 - 17541 - PHQ-9 Billing: Yes ([id number]) LEANNA-7 Assessment Billing - LEANNA-7 Assessment Tool: LEANNA-7 Assessment 32274 ([id number]) Time Spent (min) 30 Assessment & Plan Assessment & Plan (1) Physical exam: Code(s): Z00.00 - Encounter for general adult medical examination without abnormal findings Category: Medical Plan Annual mammography follow-ups are reaffirmed, aligning with compliance from the past year. Laboratory tests for cholesterol, glucose, and organ functionality will be conducted as part of continued health maintenance. Her nephrolithiasis monitoring through urology will persist. The patient will maintain her use of cetirizine, naproxen, and a hormonal patch per her current prescriptions. Recognizing family history, paternal hypertension is noted for future risk evaluations.: Patient was informed and verbally consented to the use of an ambient scribe for clinic note documentation during this visit. During the visit, the importance of administering the tetanus booster was emphasized. I discussed the schedule for regular mammography, noting her last screening was the prior year. I recommended laboratory testing for cholesterol, glucose, and organ health to provide a comprehensive assessment of her health status. The patient was informed about continuing her urology visits for kidney stone management. Continued use of her current medications was advised, and I discussed the impact of her family health history, particularly focusing on the paternal hypertension risk. I emphasized the benefits of the proposed vaccinations and screenings, ensuring her understanding and agreement. Orders: Orders Vitamin D 25-OH Total Today E55.9 - Vitamin D deficiency, unspecified Lipid Panel Today E78.5 - Hyperlipidemia, unspecified, Z00.00 - Encounter for general adult medical examination without abnormal findings TDaP Immunization Today Z23 - Encounter for immunization Complete Blood Count Auto Diff Today D64.9 - Anemia, unspecified IRON PROFILE Today D64.9 - Anemia, unspecified Vitamin B12 and Folate Today E53.8 - Deficiency of other specified B group vitamins Comprehensive [place]. Panel Fast Today Z00.00 - Encounter for general adult medical examination without abnormal findings MM tomosynthesis screening BI Today Z12.31 - Encounter for screening mammogram for malignant neoplasm of breast Patient Instructions: - Get the tetanus vaccine today. - Schedule and complete lab tests as advised. - Continue with regular mammography screenings. - Follow up with urology for kidney health. - Take cetirizine, naproxen, and use the hormonal patch as prescribed. - Monitor for any new or worsening symptoms, and report them.
[2025-03-27 09:24] VITALS: BP 108/70; BMI 30.3
== END 2025-03-27 09:45 | disposition home or self-care (01) ==
PROVIDERS: PCP Internal Medicine; Visit Provider Internal Medicine
DX: Z23 Encounter for immunization (principal); Z00.00 Encounter for general adult medical examination without abnormal findings

== ENCOUNTER → 2025-03-27 09:22 | Outpatient (BNVA) | payer OTHER, SELFPAY | PROVIDERS: PCP Internal Medicine; Visit Provider Internal Medicine | DX: Z00.00 Encounter for general adult medical examination without abnormal findings (principal); E55.9 Vitamin D deficiency, unspecified; E78.5 Hyperlipidemia, unspecified; D64.9 Anemia, unspecified; E53.8 Deficiency of other specified B group vitamins; Z23 Encounter for immunization | CPT/HCPCS: 90471; 90715; 96127; 99396 ==

== ENCOUNTER 2025-03-28 08:26 | Outpatient (REF) | payer OTHER, SELFPAY ==
--- OUTSIDE RECORDS SUMMARY | 2025-03-28 08:38 | XMS_ITS | Clinical Summary ---
Author Organization [facility] ity Address [address] [place] [address] Care Team Providers Care Slab Worker Name Role Phone Harriet Mayfield MD Primary Care Provider [phone] Surgical History Surgery Date Site/Laterality Comments APPENDECTOMY 1996 PROCEDURE: OR APPENDECTOMY CHOLECYSTECTOMY 2002 PROCEDURE: HISTORICAL CHOLECYSTECTOMY Medical History Medical History Date Comments Anemia 08/15/2011 DX:Anemia; COMME NT: H&H 10.3 / 34.0 Asthma DX:Asthma Kidney stones 2014 DX:Kidney stones Scoliosis 01/24/2014 DX:Scoliosis History of vitamin D deficiency 04/20/2015 DX:History of vitamin D deficiency; COMMENT: Vitamin D = 14 Blood type, 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 Thyroid disease Mother's side aunt Colon cancer Other nephew uncle maternal Other: down syndrome Other nephew Other: thalassemia Sister 1 Thyroid disease Sister 2 Breast cancer Neg Hx Cervical cancer Neg Hx Ovarian cancer Neg Hx Prostate cancer Neg Hx Relation Name Status Comments Brother Alive Father Alive Maternal Grandmother Mother Alive Mother's side aunt Alive Other nephew Alive Sister 1 Alive Sister 2 Alive Social History Tobacco Use Types Packs/Day Years Used Date Smoking Tobacco: Never Smokeless Tobacco: Never Alcohol Use Standard Drinks/Week Comments No 0 (1 standard drink = 0.6 oz pur e alcohol) Comments Unknown Sex and Gender Information Value Date Recorded Sex Assigned at Not on file Legal Sex Female 1:23 PM EST Gender Identity Not on file Sexual Orientation Not on file Obstetrics History Last Filed Vital Signs Vital Sign Reading Time Taken Comments Blood Pressure 119/77 03/30/2024 8:31 AM EDT Pulse 76 03/30/2024 8:31 AM EDT Temperature - - Respiratory Rate - - Oxygen Saturation - - Inhaled Oxygen Concentration - - Weight 71.3 kg (157 lb 1.6 oz) 03/30/2024 8:31 A M EDT Height 149.9 cm (4' 11 ) 03/30/2024 8:31 AM EDT Body Mass Index 31.73 03/30/2024 8:31 AM EDT Plan of Treatment Upcoming Encounters Date Type Department Care Team (Late st Contact Info) Description 04/05/2025 1:30 PM EDT Office Visit Obstetrics & Gynecology - [address] [phone] Binh Katey, CNM [address] [place] [address] Health Maintenance Due Date Last Done Comments Breast Cancer Screening 1983 Hepatitis B Vaccines (1 of 3 - 19+ 3-dose series) 2002 Cholesterol Screening (Lipid Panel) 10/14/2022 Depression Screening 10/14/2022 HIV Screening 10/14/2022 Hepatitis C Screening 10/14/2022 Social Influencers of Health Screening 10/14/2022 COVID-19 Vaccine (3 - 2023-2 5 season) 2024 04/11/2021, 03/19/2021 DTaP,Tdap,and Td Vaccines (2 - Td or Tdap) 09/19/2024 09/19/2014 Influenza Vaccine (Season Ended) 2025 Cervical Cancer Screening: P ap Smear 03/18/2026 03/18/2023, 08/29/2019 HIB Vaccines Aged Out No longer eligi ble based on patient's age to complete this topic HPV Vaccines Aged Out No longer eligi ble based on patient's age to complete this topic Hepatitis A Vaccines Aged Out No long er eligible based on patient's age to complete this topic IPV Vaccines Aged Out No longer eligi ble based on patient's age to complete this topic MMR Vaccines Aged Out No longer eligi ble based on patient's age to complete this topic Meningococcal ACWY Vaccine Aged Out N o longer eligible based on patient's age to complete this topic Meningococcal B Vaccine Aged Out No l onger eligible based on patient's age to complete this topic Pneumococcal Vaccine: Pediatrics (0 to 5 Years) and At-Risk Patients (6 to 64 Years) Aged Out No longer eligible b ased on patient's age to complete this topic RSV Immunization Patients Under 20 months Aged Out No longer eligible b ased on patient's age to complete this topic Varicella Vaccines Aged Out No longer eligible based on patient's age to complete this topic Procedures Procedure Name Priority Date/Time Associated Diagnosis Comments PAP SMEAR Routine 03/18/2023 from Last 3 Months or Most Recently Relevant to Health Maintenance Results * Pap smear (03/18/2023) 03/18/2023 Narrative HISTORICAL TESTING LAB RESULTING AGENCY - 03/24/2023 8:40 AM EDT [id number] THINPREP PAP, IMAGED: NEGATIVE FOR SQUAMOUS INTRAEPITHELIAL LESION AND MALIGNANCY . ABUNDANT PARTIALLY OBSCURING BLOOD/ACUTE INFLAMMATORY CELLS ARE PRESENT. ERNESTO SCHROEDER , PERFECTO(ASCP) (CASE ELECTRONICALLY SIGNED 03 24 2023) RESULT OF APTIMA HIGH RISK HPV ASSAY: HIGH RISK HPV: ??NEGATIVE (SEROTYPES 16,18,31,33,35,39,45,51,52,56,58,59,66,68) COMPLETED ON 2023-03-19 ADEQUACY: SATISFACTORY ENDOCERVICAL/TRANSFORMATION ZONE COMPONENT ABSENT. SOURCE: THINPREP PAP HPV ANY DX: ??REFLEX 16 AND 18, CERVICAL, IMAGED CLINICAL INFORMATION: HPV ANY DIAGNOSIS. HORMONES, PAP HX NEG 2018, LMP 03/10/23, [Z01.419] Katey ODONNELL LAB CYTOLOGY ORDERABLES Final Result HISTORICAL TESTING LAB RESULTING AGENCY from Last 3 Months or Most Recently Relevant to Health Maintenance Insurance [facility] Care Teams Slab Worker Relationship Specialty Start Date End Date Harriet Mayfield MD [address] [place] [address] , [address] [facility] [place] PCP - General Internal Medicine 09/28/20
[2025-03-28 08:53] LABS: MANUAL DIFF FLAG NO
[2025-03-28 09:08] LABS: Basophils Absolute Auto 0.1 X10*3/uL (0.0-0.2); Basophils Percent Auto 1.2 % (0-2); Eosinophils Absolute Auto 0.3 X10*3/uL (0.0-0.4); Eosinophils Percent Auto 4.6 % (0-4); Hematocrit 36.2 % (37.0-47.0); Imm Gran Abs Auto 0.03 X10*3/uL (0.00-0.03); Imm Gran Pct Auto 0.4 % (0.0-0.4); Lymphocytes Absolute Auto 2.2 X10*3/uL (1.2-4.9); Lymphocytes Percent Auto 33.1 % (20-40); Mean Corpuscular HGB Conc 30.4 g/dl (31.0-35.0); Mean Corpuscular Hemoglobin 22.4 pg (27.0-33.0); Mean Corpuscular Volume 73.7 fL (80.0-98.0); Monocytes Absolute Auto 0.7 X10*3/uL (0.1-1.2); Monocytes Percent Auto 9.7 % (2-11); Neutrophils Absolute Auto 3.4 x10*3/uL (2.0-8.3); Platelet Count 300 X10*3/uL (160-400); Red Blood Count 4.91 X10*6/uL (4.20-5.50); Red Cell Distribution Width 15.9 % (11.0-16.0); White Blood Count 6.7 X10*3/uL (4.8-10.8)
[2025-03-28 09:45] LABS: Anion Gap 14 (12-20)
[2025-03-28 10:11] LABS: Alanine Aminotransferase 6 U/L (0-31); Albumin Level 3.9 g/dL (3.5-5.0); Aspartate Amino Transferase 15 U/L (5-31); Bilirubin Total 0.7 mg/dL (0.0-1.0); Blood Urea Nitrogen 10 mg/dL (9-16); Carbon Dioxide 22 mmol/L (22-29); Chloride 110 mmol/L (96-108); Cholesterol 241 mg/dL (<200); Estimated Glomerular Filt Rate > 60; Glucose Fasting 92 mg/dL (60-99); HDL Cholesterol 60 mg/dL (>40); Iron 32 mcg/dL (30-160); LDL Cholesterol Calculated 153 mg/dL (<100); Percent Iron Saturation 8 % (15-50); Potassium 4.2 mmol/L (3.3-5.1); Sodium 142 mmol/L (135-145); Total Iron Binding Capacity 410 mcg/dL (228-428); Total Protein 7.2 g/dL (6.5-8.0); Triglycerides 140 mg/dL (<150); Unsaturated Iron Binding 378 ug/dL
[2025-03-28 10:14] LABS: Folate 10.6 ng/mL (> or = 4.0); Vitamin B12 394 pg/mL (200-900)
[2025-03-28 10:17] LABS: Vitamin D 25-OH Total 13.7 ng/mL (>30)
[2025-03-28 12:49] LABS: Alkaline Phosphatase 55 U/L (39-117)
== END 2025-03-28 08:27 | disposition home or self-care (01) ==
LOC: HO.LAB 08:26
PROVIDERS: PCP Internal Medicine; Visit Provider Internal Medicine
DX: Z00.00 Encounter for general adult medical examination without abnormal findings (principal); D64.9 Anemia, unspecified; E53.8 Deficiency of other specified B group vitamins; E55.9 Vitamin D deficiency, unspecified; E78.5 Hyperlipidemia, unspecified
CPT/HCPCS: 36415; 80053; 80061; 82306; 82607; 82746; 83540; 85025

== ENCOUNTER 2025-06-15 14:12 | Outpatient (REF) | payer OTHER, SELFPAY ==
--- NOTE | ~2025-06-15 | US_ITS ---
CLINICAL HISTORY: N20.1 - Calculus of ureter US Renal Comparison: US/SR - US RENAL BI - 08/11/2024 02:16 PM EDT Findings: Right kidney normal size and echotexture, 10.3 cm length. Left kidney normal size and echotexture, 9.6 cm length. There is a right renal cortical 0.7 cm echogenic structure with distal shadowing, possible nonobstructing calculus. No hydronephrosis of either kidney. Normal color Doppler IMPRESSION: 1. No acute findings. This document has been electronically signed by: Rob Little MD on 06/16/2025 08:58:10
== END 2025-06-15 14:13 | disposition home or self-care (01) ==
LOC: HO.US 14:12
PROVIDERS: PCP Internal Medicine; Visit Provider Nurse Practitioner Family
DX: N20.1 Calculus of ureter (principal)
CPT/HCPCS: 76775

== ENCOUNTER → 2025-06-15 14:15 | Outpatient (BNV) | payer OTHER, SELFPAY | PROVIDERS: PCP Internal Medicine; Visit Provider Specialist | DX: N20.1 Calculus of ureter (principal) | CPT/HCPCS: 76775 ==

== ENCOUNTER 2025-06-21 08:49 | Outpatient (AMB) | payer OTHER, SELFPAY ==
--- NOTE | 2025-06-21 08:53 | A.OFFVIS_ITS ---
Intake Visit Reasons: Follow up/US Intake Note: Patient is present for US F/U Urology Medication:NONE Antibiotic Allergy:NONE Blood Thinner:NONE Supervisor Asbestos Removal Required: No Allergies No Known Allergies Allergy (Verified 06/21/25 09:34) Medication List - Last Reconciled 06/21/25 by NICHELLE Kaiser albuterol sulfate 90 mcg/actuation 2 puffs inhalation Q6H PRN 30 days cetirizine (All Day Allergy (cetirizine)) 10 mg PO DAILY PRN 90 days cholecalciferol (vitamin D3) 25 mcg PO DAILY 90 days ferrous sulfate 325 mg PO DAILY 90 days hydrocortisone 1% (Anti-Itch (hydrocortisone)) 1 appl topical TID PRN 2 weeks meclizine 25 mg PO TID PRN 30 days norelgestromin-ethin.estradiol 150-35 mcg/24 hr (Xulane) 1 patch topical QWEEK Ventolin HFA 90 mcg/actuation (albuterol sulfate) 2 puffs inhalation Q6H PRN 30 days NS HPI Comments Details: Michelle is a pleasant 40-year-old female patient of Dr. Fuentes. She has a past medical history of depression, hearing loss, vertigo, and nephrolithiasis. She presents to the office today for follow-up of her nephrolithiasis. In discussion with the patient today she reports noting over the last 3 weeks she has been having intermittent episodes of right-sided flank pain. Recent renal ultrasound results were reviewed 06/09 there is a right renal cortical 0.7 cm echogenic structure within the distal shadowing possibly a nonobstructing calculus. No hydronephrosis of either kidney. She does discuss her longstanding history of nephrolithiasis requiring surgical intervention in the past. She otherwise denies urinary urgency, urinary frequency, incontinence, nocturia, hematuria, dysuria, foul smelling urine, changes to urinary stream, fever, and or chills. She is happy with her current voiding parameters. She reports she continues to drink plenty of water daily. We discussed obtaining CT KUB for further assessment evaluation. In office urinalysis results reviewed with the patient today. All questions were answered. She otherwise offers no other issues or concerns at this time. PREVIOUS OFFICE NOTE: Nephrolithiasis May ER admission Family history stones Known prior nephrolithiasis that required procedure 2013 Laboratory show creatinine 0.86, WBC 10.7, calcium 9.2 Imaging - CT Mild-to moderate right hydronephrosis and proximal hydroureter are caused by a 0.3 x 0.4 x 0.6 cm stone at the L2-L3 level of the proximal ureter Intervention - right [facility] Medical History Depression Right knee pain Thoracic spine pain Hearing loss, right Obese Vertigo Surgical History Hx of tonsillectomy History of extraction of renal calculus History of cholecystectomy History of appendectomy Family History Father Hypertension Mother No problems noted. Sister Thalassemia Asthma Maternal Grandmother Heart disease Daughter In good health Daughter In good health Maternal Uncle DVT (deep venous thrombosis) Sister Asthma Social History Housing: Apartment Alcohol intake: never Patient Tobacco Use Status: Never used Tobacco e-Cigarette/Vaping Use: Never Used Second Hand Smoke Exposure: No service: No Current occupational status: employed Current occupation: [employer] Current occupational exposures/hazards: No Cognitive needs: No Hearing needs: No Vision needs: No Review of Systems Const All systems reviewed & are unremarkable except as noted in HPI and below Physical Exam Const General: cooperative, healthy appearing, comfortable, no acute distress, well developed, alert and awake Orientation/consciousness: patient oriented x3 Limitations: no limitations HEENT Head: Yes normal to inspection, Yes normocephalic and Yes atraumatic Ears: hearing grossly normal bilaterally Eyes General: appearance normal, both eyes and all related structures Neck Neck: Yes normal visual inspection and Yes trachea midline Chest Chest palpation & inspection: normal inspection of the chest Resp Effort & Inspection: normal respiratory effort and able to speak in complete sentences Cardio Rate: regular rate GI Inspection: Yes normal to inspection General: Yes no CVA tenderness Back/Spine/Pelvis Back: no CVA tenderness Skin General skin exam: no rashes or lesions noted Neuro General: patient oriented x3 Extrem General: Yes normal to inspection Psych Appearance: grossly normal and well kempt Mental Status: mental status grossly normal Speech and movement: Normal speech and movement present and Clear speech present Affect: normal affect Attitude: cooperative Thought process: Normal thought process present Thought content: Normal thought content present Insight: Fair insight present (Psych) Judgement: Fair judgement present (Psych) Results AMB Urinalysis, Automated UA Leukoctes 0 Ernestina/uL Last Edit by YESI Gutierrez on 06/21/25 09:08 UA Nitrite Negative Last Edit by Deb Pereira CCM on 06/21/25 09:08 UA Urobilinogen 0.2 mg/dL Last Edit by Deb Pereira [facility] on 06/21/25 09:0 8 UA Protein 0 mg/dL Last Edit by Deb Pereira [facility] on 06/21/25 09:08 UA pH 6.0 Last Edit by Deb Pereira [facility] on 06/21/25 09:08 UA Blood 0 Jc/uL Last Edit by Deb Pereira [facility] on 06/21/25 09:08 UA Specific [place] 1.015 Last Edit by Deb Pereira CCM on 06/21/25 09: 08 UA Ketone Negative Last Edit by Deb Pereira [facility] on 06/21/25 09:08 UA Bilirubin 0 mg/dL Last Edit by Deb Pereira [facility] on 06/21/25 09:08 UA Glucose 0 mg/dL Last Edit by Deb Pereira [facility] on 06/21/25 09:08 Results Reviewed Results Reviewed: Laboratory Last Values Urine pH (Auto) 6.0 06/21/25 09:05 Specific [place] (Auto) 1.015 06/21/25 09:05 Urine Protein (Auto) 0 mg/dL 06/21/25 09:05 Glucose (UA)(Auto) 0 mg/dL 06/21/25 09:05 Urine Ketones (Auto) Negative 06/21/25 09:05 Urine Blood (Auto) 0 Jc/uL 06/21/25 09:05 Urine Nitrite (Auto) Negative 06/21/25 09:05 Urine Bilirubin (Auto) 0 mg/dL 06/21/25 09:05 Urine Urobilinogen (Auto) 0.2 mg/dL 06/21/25 09:05 Leukocyte Esterase (Auto) 0 Ernestina/uL 06/21/25 09:05 Date of Service: 06/15/25 Findings: Right kidney normal size and echotexture, 10.3 cm length. Left kidney normal size and echotexture, 9.6 cm length. There is a right renal cortical 0.7 cm echogenic structure with distal shadowing, possible nonobstructing calculus. No hydronephrosis of either kidney. Normal color Doppler IMPRESSION: 1. No acute findings. Assessment & Plan Assessment & Plan (1) Calculus of proximal right ureter: Code(s): N20.1 - Calculus of ureter Category: Medical (2) Flank pain: Code(s): R10.9 - Unspecified abdominal pain Category: Medical Plan In office urinalysis results reviewed with the patient today; as noted above. Recent renal imaging results reviewed with the patient today; as noted above. We did discussed potential causes of right-sided flank pain as well as further interventions and risks and benefits of these interventions. She currently denies any bothersome urinary issues. Will obtain CT KUB for further assessment evaluation. We discussed worsening symptoms. We discussed importance of adequate hydration relation to nephrolithiasis as well as overall health and well-being. We discussed adding 1 oz of lemon juice to water daily. Follow-up in 1-2 weeks with imaging to be completed prior; or sooner with any issues, concerns, and or questions. Orders: Orders AMB Urinalysis Automated Today Z13.9 - Encounter for screening, unspecified CT kidney stone Today N20.1 - Calculus of ureter, R10.9 - Unspecified abdominal pain Patient Instructions: The patient had an opportunity to ask questions regarding the treatment plan. All questions were answered. Physical exam, labs, and imaging were discussed and reviewed in detail. As well as risks, benefits, and discussion of treatment choices. No major barriers to understanding were identified. The patient expressed understanding and agreement with the above treatment plan. The patient was made aware they should contact our office by phone for worsening of their current condition, the appearance of new symptoms, or with any questions or concerns. Compliance is encouraged with any medications and follow up testing that is ordered. It is a privilege to be allowed the opportunity to participate in? your urological care.? Again, if you have any questions or concerns If you have any questions or concerns please do not hesitate to contact me. The office is [phone]. This note is constructed using voice recognition software. While every effort has been made to ensure accuracy medical instrument technician errors may have been included. Yours sincerely, CURTIS Kaiser-HAZEL Coding Level of Care Code Est Pt Level 3 (10983) Diagnoses Calculus of proximal right ureter N20.1 Flank pain R10.9
== END 2025-06-21 09:30 | disposition home or self-care (01) ==
LOC: HO.HUSH 08:49
PROVIDERS: PCP Internal Medicine; Visit Provider Nurse Practitioner Family
DX: N20.1 Calculus of ureter (principal); R10.9 Unspecified abdominal pain; Z13.9 Encounter for screening, unspecified
CPT/HCPCS: 99213

== ENCOUNTER → 2025-06-21 08:49 | Outpatient (BNVA) | payer OTHER, SELFPAY | PROVIDERS: PCP Internal Medicine; Visit Provider Nurse Practitioner Family | DX: N20.1 Calculus of ureter (principal); R10.9 Unspecified abdominal pain; Z13.9 Encounter for screening, unspecified | CPT/HCPCS: 81003; 99212 ==

== ENCOUNTER 2025-07-03 09:07 | Outpatient (REF) | payer OTHER, SELFPAY ==
--- NOTE | ~2025-07-03 | CT_ITS ---
EXAMINATION: CT ABDOMEN AND PELVIS WITHOUT CONTRAST CLINICAL INFORMATION: Unspecified abdominal pain. COMPARISON: 05/30/2024. TECHNIQUE: Multidetector volumetric imaging was performed from the superior aspect of the liver through the pubic symphysis. Sagittal and coronal reformatted images were obtained on the technologist's workstation. This CT examination was performed using dose optimization techniques as appropriate, variously including the following: *Automated exposure control *Adjustment of mA and/or kV according to patient size (this includes techniques or standardized protocols for targeted exams where dose is matched to indication/reason for exam; i.e. extremities or head) *Use of iterative reconstruction technique FINDINGS: LUNG BASES: The visualized lung bases are unremarkable. LIVER, GALLBLADDER, AND BILIARY TREE: The unenhanced liver is normal in size, shape, and demonstrates mild low attenuation consistent with steatosis. No focal hepatic lesion or biliary ductal dilatation is present. There is pneumobilia, chronic and unchanged. The gallbladder is surgically absent. PANCREAS: Unremarkable. SPLEEN: Unremarkable. ADRENAL GLANDS: Unremarkable. KIDNEYS AND URETERS: The kidneys are normal in size, shape, and attenuation. No hydronephrosis, hydroureter, or calculi seen. No perinephric stranding. BLADDER: Unremarkable. GASTROINTESTINAL TRACT: The small and large bowel are unremarkable. The appendix is not well seen and presumably surgically absent. ABDOMINAL WALL: No significant hernia is appreciated. LYMPH NODES: Normal. VASCULAR: Unremarkable. PELVIC VISCERA: Probable fibroid uterus. No adnexal masses. OSSEOUS STRUCTURES: No suspicious lytic or blastic bone lesions. There is a mild right convex thoracolumbar scoliosis. There are mild spinal degenerative changes. CT/CT kidney stone IMPRESSION: 1. No acute findings in the abdomen or pelvis. There is no urological calculus or obstruction. 2. Mild hepatic steatosis and chronic pneumobilia, unchanged. 3. Cholecystectomy. 4. Probable fibroid uterus. Electronically signed by: Leonardo Keith MD 07/03/2025 10:15 AM EDT
== END 2025-07-03 09:08 | disposition home or self-care (01) ==
LOC: HO.CT 09:07
PROVIDERS: PCP Internal Medicine; Visit Provider Nurse Practitioner Family
DX: R10.9 Unspecified abdominal pain (principal); N20.1 Calculus of ureter
CPT/HCPCS: 74176

== ENCOUNTER → 2025-07-03 09:09 | Outpatient (BNV) | payer OTHER, SELFPAY | PROVIDERS: PCP Internal Medicine; Visit Provider Radiology Diagnostic Radiology | DX: K76.0 Fatty (change of) liver, not elsewhere classified (principal) | CPT/HCPCS: 74176 ==

== ENCOUNTER 2025-07-04 08:11 | Outpatient (REF) | payer OTHER, SELFPAY ==
--- NOTE | ~2025-07-04 | MM_ITS ---
EXAMINATION: MM SCREENING DIGITAL BREAST TOMOSYNTHESIS, BILATERAL CLINICAL INFORMATION: Screening. Asymptomatic. COMPARISON: Mammography: Comparison is made with available priors TECHNIQUE: Digital breast mammography with tomosynthesis is performed in both the craniocaudal and mediolateral oblique views along with computer-aided detection (CAD). FINDINGS: The breasts are heterogeneously dense, which may obscure small masses (ACR BI-RADS breast composition Category c). There are no significant masses, abnormal calcifications, or other abnormalities. MM/MM tomosynthesis screening BI IMPRESSION: No mammographic evidence of malignancy. ASSESSMENT: BI-RADS BI-RADS 1 - Negative RECOMMENDATION: Routine annual mammography screening. 1 year F/U This examination should not preclude the clinical evaluation of a suspicious palpable abnormality. This patient's information was entered into a reminder system with a target due date for their next mammogram. Electronically signed by: Kayce Walls DO 07/05/2025 01:21 PM EDT
== END 2025-07-04 08:12 | disposition home or self-care (01) ==
LOC: HO.MAMMO 08:11
PROVIDERS: PCP Internal Medicine; Visit Provider Internal Medicine
DX: Z12.31 Encounter for screening mammogram for malignant neoplasm of breast (principal)
CPT/HCPCS: 77063; 77067

== ENCOUNTER → 2025-07-04 08:30 | Outpatient (BNV) | payer OTHER, SELFPAY | PROVIDERS: PCP Internal Medicine; Visit Provider Internal Medicine | DX: Z12.31 Encounter for screening mammogram for malignant neoplasm of breast (principal) | CPT/HCPCS: 77063; 77067 ==

== ENCOUNTER 2025-07-05 10:05 | Outpatient (AMB) | payer OTHER, SELFPAY ==
--- NOTE | 2025-07-05 10:06 | A.OFFVIS_ITS ---
Intake Visit Reasons: 2w/CT KUB Intake Note: Patient is present for 2W/CT KUB Urology Medication:NONE Antibiotic Allergy:NONE Blood Thinner:NONE Director Of Catering Sales Required: No Allergies No Known Allergies Allergy (Verified 07/05/25 10:40) Medication List - Last Reconciled 07/05/25 by CURTIS Kaiser- albuterol sulfate 90 mcg/actuation 2 puffs inhalation Q6H PRN 30 days cetirizine (All Day Allergy (cetirizine)) 10 mg PO DAILY PRN 90 days cholecalciferol (vitamin D3) 25 mcg PO DAILY 90 days ferrous sulfate 325 mg PO DAILY 90 days hydrocortisone 1% (Anti-Itch (hydrocortisone)) 1 appl topical TID PRN 2 weeks meclizine 25 mg PO TID PRN 30 days norelgestromin-ethin.estradiol 150-35 mcg/24 hr (Xulane) 1 patch topical QWEEK Ventolin HFA 90 mcg/actuation (albuterol sulfate) 2 puffs inhalation Q6H PRN 30 days NS HPI Comments Details: Michelle is a pleasant 40-year-old female patient of Dr. Fuentes. She has a past medical history of depression, hearing loss, vertigo, and nephrolithiasis. She is being followed up on today via video telehealth for her history of nephrolithiasis. Of note, patient was seen approximately 2 weeks ago at which time recent renal ultrasound 06/09 noted right renal cortical 7 mm echogenic structure within the distal shadowing possibly a nonobstructing calculus therefore a CT KUB was ordered for further assessment evaluation. These results were reviewed and communicated with the patient today. CT KUB 07/10 the kidneys are normal in size, shape, and attenuation. No hydronephrosis, hydroureter, or calculi seen. No perinephric stranding. The bladder is unremarkable. She does discuss her longstanding history of nephrolithiasis requiring surgical intervention in the past. She currently denies any bothersome urinary issues or concerns. She reports she is attempting to drink plenty of water daily. She denies urinary urgency, urinary frequency, incontinence, nocturia, hematuria, dysuria, foul smelling urine, changes to urinary stream, fever, and or chills. She is happy with her current voiding parameters. We did discuss potential causes of nephrolithiasis. All questions were answered. She otherwise offers no other issues or concerns at this time. PREVIOUS OFFICE NOTE: Nephrolithiasis May ER admission Family history stones Known prior nephrolithiasis that required procedure 2013 Laboratory show creatinine 0.86, WBC 10.7, calcium 9.2 Imaging - CT Mild-to moderate right hydronephrosis and proximal hydroureter are caused by a 0.3 x 0.4 x 0.6 cm stone at the L2-L3 level of the proximal ureter Intervention - right [facility] Medical History Depression Right knee pain Thoracic spine pain Hearing loss, right Obese Vertigo Surgical History Hx of tonsillectomy History of extraction of renal calculus History of cholecystectomy History of appendectomy Family History Father Hypertension Mother No problems noted. Sister Thalassemia Asthma Maternal Grandmother Heart disease Daughter In good health Daughter In good health Maternal Uncle DVT (deep venous thrombosis) Sister Asthma Social History Housing: Apartment Alcohol intake: never Patient Tobacco Use Status: Never used Tobacco e-Cigarette/Vaping Use: Never Used Second Hand Smoke Exposure: No service: No Current occupational status: employed Current occupation: [employer] Current occupational exposures/hazards: No Cognitive needs: No Hearing needs: No Vision needs: No Review of Systems Const All systems reviewed & are unremarkable except as noted in HPI and below Physical Exam Const General: cooperative, healthy appearing, comfortable, no acute distress, well developed, alert and awake Orientation/consciousness: patient oriented x3 Resp Effort & Inspection: normal respiratory effort and able to speak in complete sentences Neuro General: patient oriented x3 Psych Attitude: cooperative Thought process: Normal thought process present Thought content: Normal thought content present Insight: Fair insight present (Psych) Judgement: Fair judgement present (Psych) Telehealth Telehealth Telehealth Platform: Telephone Location of provider rendering services: practice address Location of patient: address on file Patient Identification confirmed using: Name, : Yes Telehealth method: video Patient verbally consented to treatment: Yes Patient verbally consented to billing insurance company: Yes Patient informed of any privacy concerns related to visit: Yes Minutes spent on Phone/Video with Pt.: 15 Results Reviewed Results Reviewed: Date of Service: 07/03/25 Procedure(s): CT kidney stone FINDINGS: LUNG BASES: The visualized lung bases are unremarkable. LIVER, GALLBLADDER, AND BILIARY TREE: The unenhanced liver is normal in size, shape, and demonstrates mild low attenuation consistent with steatosis. No focal hepatic lesion or biliary ductal dilatation is present. There is pneumobilia, chronic and unchanged. The gallbladder is surgically absent. PANCREAS: Unremarkable. SPLEEN: Unremarkable. ADRENAL GLANDS: Unremarkable. KIDNEYS AND URETERS: The kidneys are normal in size, shape, and attenuation. No hydronephrosis, hydroureter, or calculi seen. No perinephric stranding. BLADDER: Unremarkable. GASTROINTESTINAL TRACT: The small and large bowel are unremarkable. The appendix is not well seen and presumably surgically absent. ABDOMINAL WALL: No significant hernia is appreciated. LYMPH NODES: Normal. VASCULAR: Unremarkable. PELVIC VISCERA: Probable fibroid uterus. No adnexal masses. OSSEOUS STRUCTURES: No suspicious lytic or blastic bone lesions. There is a mild right convex thoracolumbar scoliosis. There are mild spinal degenerative changes. IMPRESSION: 1. No acute findings in the abdomen or pelvis. There is no urological calculus or obstruction. 2. Mild hepatic steatosis and chronic pneumobilia, unchanged. 3. Cholecystectomy. 4. Probable fibroid uterus. Assessment & Plan Assessment & Plan (1) Calculus of proximal right ureter: Code(s): N20.1 - Calculus of ureter Category: Medical Plan Recent CT results reviewed with the patient today; as noted above All questions were answered She currently denies any bothersome urinary issues or concerns She reports be happy with current voiding parameters Will continue with surveillance monitoring. Discussed, educated, and stressed the importance of adequate hydration relation to nephrolithiasis as well as overall health and well-being. Continue adding 1 oz of lemon juice to water daily. Will obtain renal ultrasound in 6 months. Follow-up in 6 months with imaging to be completed prior; or sooner with any issues, concerns, and or questions. Orders: Orders US renal BI 6 Months N20.0 - Calculus of kidney Patient Instructions: The patient had an opportunity to ask questions regarding the treatment plan. All questions were answered. Physical exam, labs, and imaging were discussed and reviewed in detail. As well as risks, benefits, and discussion of treatment choices. No major barriers to understanding were identified. The patient expressed understanding and agreement with the above treatment plan. The patient was made aware they should contact our office by phone for worsening of their current condition, the appearance of new symptoms, or with any questions or concerns. Compliance is encouraged with any medications and follow up testing that is ordered. It is a privilege to be allowed the opportunity to participate in? your urological care.? Again, if you have any questions or concerns If you have any questions or concerns please do not hesitate to contact me. The office is [phone]. This note is constructed using voice recognition software. While every effort has been made to ensure accuracy home care specialist errors may have been included. Yours sincerely, NICHELLE Kaiser Coding Level of Care Code Tele Est Pt Level 3 (73460) Diagnoses Calculus of proximal right ureter N20.1
== END 2025-07-05 11:22 | disposition home or self-care (01) ==
LOC: HO.HUSH 10:05
PROVIDERS: PCP Internal Medicine; Visit Provider Nurse Practitioner Family
DX: N20.1 Calculus of ureter (principal)
CPT/HCPCS: 99213